=== PATIENT | female | born 1930 | race Caucasian/White ===

== ENCOUNTER 2019-07-28 22:16 | Inpatient (IN) | payer MEDICARE, OTHER ==
[~2019-07-28] VITALS: Ht 152.4 cm; Wt 58.7 kg
[~2019-07-28 22:16] MED LIST: CARV6.2511 PO; LACT1CAP19 PO; LEVO250T7 PO; MELO7.5T29 PO; OMEP20TA63 PO; OXYB5TAB2 PO; PARO10TA3 PO; RANI150C PO; TRAM50TA PO
--- NOTE | 2019-07-28 22:49 | PHYS DOC ---
Past Medical History Past Medical History: Hypertension Alcohol Use: None Drug Use: None Adult General Chief Complaint Chief Complaint: MECHANICAL FALL HPI HPI 88-year-old female presents to the emergency department with complaints of fall. EMS was called for altered mental status associated with the fall. However upon further discussion patient has had fall a few days ago with bruising to left side of her head. Patient is alert and oriented 3. She follows commands appropriately. NIH of 3 however non-unilateral deficit. See stroke scale. Patient complains of nausea. Unknown blood thinning medications. Patient's poor historian, no present family at this time. She denies any chest pain, shortness breath, visual changes. Patient does not live with family she goes back and forth between friends. They state she has had intermittent falls most recently tonight. They also state her speech is intermittently slurred. No exact onset of symptoms appreciated after talking with family. Review of Systems Review of Systems Constitutional: Denies fever or chills [] Eyes: Denies change in visual acuity, redness, or eye pain [] HENT: Denies nasal congestion or sore throat [] Respiratory: Denies cough or shortness of breath [] Cardiovascular: No additional information not addressed in HPI [] GI: Denies abdominal pain, nausea, vomiting, bloody stools or diarrhea [] : Denies dysuria or hematuria [] Musculoskeletal: Denies back pain or joint pain [] Integument: Denies rash or skin lesions [] Neurologic: Denies headache, focal weakness or sensory changes [] Endocrine: Denies polyuria or polydipsia [] All other systems were reviewed and found to be within normal limits, except as documented in this note. Current Medications Current Medications Current Medications Medications (Trade) Dose Ordered Sig/[facility] Start Time Stop Time Status Last Admin Dose Admin Ketorolac Tromethamine (Toradol 30mg Vial) 30 mg 1X ONCE 07/28/19 23:30 07/28/19 23:31 DC 07/28/19 23:38 30 MG Allergies Allergies Allergies Coded Allergies Type Severity Reaction Last Updated Verified No Known Drug Allergies 08/27/18 No Physical Exam Physical Exam Constitutional: Well developed, well nourished, no acute distress, non-toxic appearance. [] HENT: Normocephalic, left scalp with hematoma, bilateral external ears normal, oropharynx moist, no oral exudates, nose normal. [] Eyes: left pupil with lens replacement pupil different than right however both reactive, EOMI, conjunctiva normal, no discharge. [] Neck: Normal range of motion, no tenderness, supple, no stridor. [] Cardiovascular:Heart rate regular rhythm, no murmur [] Lungs & Thorax: Bilateral breath sounds clear to auscultation [] Abdomen: Bowel sounds normal, soft, no tenderness, no masses, no pulsatile masses. [] Skin: Warm, dry, no erythema, no rash. multiple areas of bruising appreciated [] Back: No tenderness, no CVA tenderness. [] Extremities: No tenderness, no edema. [] Neurologic: Alert and oriented X 3, no focal deficits noted. [] Psychologic: Affect normal, judgement normal, mood normal. [] Current Patient Data Vital Signs Vital Signs Date Time Temp Pulse Resp B/P (MAP) Pulse Ox O2 Delivery O2 Flow Rate FiO2 07/28/19 22:16 97.6 71 14 193/80 (117) 97 Room Air 97.6 Lab Values Laboratory Tests Test 07/28/19 22:22 07/28/19 22:40 07/28/19 23:20 Glucose (Fingerstick) 121 mg/dL (70-99) H White Blood Count 9.2 x10^3/uL (4.0-11.0) Red Blood Count 4.41 x10^6/uL (3.50-5.40) Hemoglobin 13.8 g/dL (12.0-15.5) Hematocrit 40.8 % (36.0-47.0) Mean Corpuscular Volume 92 fL (79-100) Mean Corpuscular Hemoglobin 31 pg (25-35) Mean Corpuscular Hemoglobin Concent 34 g/dL (31-37) Red Cell Distribution Width 13.4 % (11.5-14.5) Platelet Count 162 x10^3/uL (140-400) Neutrophils (%) (Auto) 57 % (31-73) Lymphocytes (%) (Auto) 30 % (24-48) Monocytes (%) (Auto) 11 % (0-9) H Eosinophils (%) (Auto) 1 % (0-3) Basophils (%) (Auto) 1 % (0-3) Neutrophils # (Auto) 5.2 x10^3/uL (1.8-7.7) Lymphocytes # (Auto) 2.8 x10^3/uL (1.0-4.8) Monocytes # (Auto) 1.0 x10^3/uL (0.0-1.1) Eosinophils # (Auto) 0.1 x10^3/uL (0.0-0.7) Basophils # (Auto) 0.1 x10^3/uL (0.0-0.2) Prothrombin Time 13.0 SEC (11.7-14.0) Prothrombin Time INR 1.0 (0.8-1.1) Sodium Level 144 mmol/L (136-145) Potassium Level 4.0 mmol/L (3.5-5.1) Chloride Level 108 mmol/L (98-107) H Carbon Dioxide Level 25 mmol/L (21-32) Anion Gap 11 (6-14) Blood Urea Nitrogen 30 mg/dL (7-20) H Creatinine 1.3 mg/dL (0.6-1.0) H Estimated GFR (Cockcroft-Gault) 38.8 BUN/Creatinine Ratio 23 (6-20) H Glucose Level 127 mg/dL (70-99) H Calcium Level 9.3 mg/dL (8.5-10.1) Total Bilirubin 0.5 mg/dL (0.2-1.0) Aspartate Amino Transferase (AST) 32 U/L (15-37) Alanine Aminotransferase (ALT) 37 U/L (14-59) Alkaline Phosphatase 75 U/L (46-116) Total Protein 7.7 g/dL (6.4-8.2) Albumin 3.8 g/dL (3.4-5.0) Albumin/Globulin Ratio 1.0 (1.0-1.7) Urine Collection Type U cath Urine Color Yellow Urine Clarity Clear Urine pH 5.0 Urine Specific [place] 1.020 Urine Protein Negative mg/dL (NEG-TRACE) Urine Glucose (UA) Negative mg/dL (NEG) Urine Ketones (Stick) Negative mg/dL (NEG) Urine Blood Moderate (NEG) Urine Nitrite Positive (NEG) Urine Bilirubin Negative (NEG) Urine Urobilinogen Dipstick 0.2 mg/dL (0.2 mg/dL) Urine Leukocyte Esterase Trace (NEG) Urine RBC Rare /HPF (0-2) Urine WBC Occ /HPF (0-4) Urine Squamous Epithelial Cells Few /LPF Urine Bacteria Many /HPF (0-FEW) Urine Hyaline Casts Occasional /HPF Laboratory Tests 07/28/19 22:40 Laboratory Tests 07/28/19 22:40 EKG EKG EKG reviewed, normal sinus rhythm, heart rate 70, normal axis. No evidence of acute ST elevation DE. Interpretation time 2234[] Radiology/Procedures Radiology/Procedures [facility] [address] [place] [address] IMAGING REPORT Signed PATIENT: STAN RAPP ACCOUNT: [id number] : 1930 LOCATION: ER AGE: 88 SEX: F EXAM STATUS: REG ER ORD. PHYSICIAN: MOISES SIMMONS MD REASON: NIH 3, inconsistent history and no family available. PROCEDURE: CT HEAD WO CONTRAST EXAM: CT HEAD WITHOUT CONTRAST. HISTORY: Altered mental status. TECHNIQUE: Computed tomography of the head was performed without intravenous contrast. One or more of the following individualized dose reduction techniques were utilized for this examination: 1. Automated exposure control. 2. Adjustment of the mA and/or kV according to patient size. 3. Use of iterative reconstruction technique. COMPARISON: None. FINDINGS: There is no intracranial hemorrhage. There is right hemispheric encephalomalacia consistent with a chronic medial collateral ligament territory infarct. Additional bilateral chronic occipital infarcts are also noted. There is a moderate chronic microangiopathic white matter change elsewhere. Prominence of the lateral ventricles and hemispheric sulci indicates moderate atrophy. The visualized paranasal sinuses appear clear. There are changes of bilateral cataract surgery. The temporal bones are unremarkable. The calvarium reveals no suspicious lesions. IMPRESSION: 1. No acute intracranial findings. 2. 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 3. 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 Electronically signed by: Jennie Foster MD (07/28/2019 10:57 PM) [facility] DICTATED and SIGNED BY: SARAH FOSTER MD DATE: 07/28/19 2259 [] Course & Med Decision Making Course & Med Decision Making Pertinent Labs and Imaging studies reviewed. (See chart for details) []88-year-old female presents to the emergency department with complaints of fall. EMS was called for altered mental status associated with the fall. However upon further discussion patient has had fall a few days ago with bruising to left side of her head. Patient is alert and oriented 3. She follows commands appropriately. NIH of 3 however non-unilateral deficit. See stroke scale. Patient complains of nausea. Unknown blood thinning medications. Patient's poor historian, no present family at this time. She denies any chest pain, shortness breath, visual changes. Patient does not live with family she goes back and forth between friends. They state she has had intermittent falls most recently tonight. They also state her speech is intermittently slurred. No exact onset of symptoms appreciated after talking with family Labs/Imaging reviewed No evidence of acute cva however bilateral old CVA present Admit with further neuro eval and probable MRI. PT/OT eval and treat Neuro consult Admit to hospitalist Comfort Disclaimer Comfort Disclaimer This electronic medical record was generated, in whole or in part, using a voice recognition dictation system. NIHSS Stroke Scale NIH Stroke Scale: NIH Stroke Scale Response (Comments) Value Level of Consciousness: 0 Alert/Responsive 0 LOC Questions: 0 Answers both correctly 0 LOC Commands: 0 Performs both tasks 0 Best Gaze: 0 Normal 0 Visual: 0 No visual loss 0 Facial Palsy: 0 Normal, symmetrical 0 Motor - Left Arm 0 No drift 0 Motor - Right Arm 1 Drifts but can hold 1 Motor - Left Leg 0 No drift 0 Motor: Right Leg 0 No drift 0 Limb Ataxia: 2 Two limbs 2 Sensory: 0 No loss 0 Best Language: 0 Normal 0 Dysathria: 0 Normal 0 Extinction and Inattention: 0 Normal 0 Total 3 Departure Departure Impression: Primary Impression: Fall Additional Impressions: Altered mental status UTI (urinary tract infection) Old cerebrovascular accident (CVA) without late effect Disposition: ADMITTED INPATIENT Admitting Physician: TRUDY Condition: STABLE Referrals: HAYDER SUTTON APRN (PCP) Problem Qualifiers Primary Impression: Fall Encounter type: initial encounter Qualified Codes: W19.XXXA - Unspecified fall, initial encounter Additional Impressions: Altered mental status Altered mental status type: unspecified Qualified Codes: R41.82 - Altered mental status, unspecified MOISES SIMMONS MD Jul 28, 2019 22:49
[2019-07-28 22:50] LABS: BASO # 0.1 x10^3/uL (0.0-0.2); BASO % 1 % (0-3); EOS # 0.1 x10^3/uL (0.0-0.7); EOS % 1 % (0-3); HEMATOCRIT 40.8 % (36.0-47.0); HEMOGLOBIN 13.8 g/dL (12.0-15.5); LYMPH # 2.8 x10^3/uL (1.0-4.8); LYMPH % 30 % (24-48); MEAN CORPUSCULAR HEMOGLOBIN 31 pg (25-35); MEAN CORPUSCULAR HGB CONC 34 g/dL (31-37); MEAN CORPUSCULAR VOLUME 92 fL (79-100); MONO % 11 % (0-9); NEUT # 5.2 x10^3/uL (1.8-7.7); NEUT % 57 % (31-73); PLATELET COUNT 162 x10^3/uL (140-400); RED BLOOD COUNT 4.41 x10^6/uL (3.50-5.40); RED CELL DISTRIBUTION WIDTH 13.4 % (11.5-14.5); WHITE BLOOD COUNT 9.2 x10^3/uL (4.0-11.0)
[2019-07-28 23:00] LABS: CALCIUM 9.3 mg/dL (8.5-10.1); CREATININE 1.3 mg/dL (0.6-1.0); GFR 38.8
--- NOTE | 2019-07-28 23:00 | RAD ---
EXAM: CT HEAD WITHOUT CONTRAST. HISTORY: Altered mental status. TECHNIQUE: Computed tomography of the head was performed without intravenous contrast. One or more of the following individualized dose reduction techniques were utilized for this examination: 1. Automated exposure control. 2. Adjustment of the mA and/or kV according to patient size. 3. Use of iterative reconstruction technique. COMPARISON: None. FINDINGS: There is no intracranial hemorrhage. There is right hemispheric encephalomalacia consistent with a chronic medial collateral ligament territory infarct. Additional bilateral chronic occipital infarcts are also noted. There is a moderate chronic microangiopathic white matter change elsewhere. Prominence of the lateral ventricles and hemispheric sulci indicates moderate atrophy. The visualized paranasal sinuses appear clear. There are changes of bilateral cataract surgery. The temporal bones are unremarkable. The calvarium reveals no suspicious lesions. IMPRESSION: 1. No acute intracranial findings. 2. 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 3. 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 Electronically signed by: Jennie Foster MD (07/28/2019 10:57 PM) [facility]
[2019-07-28 23:06] LABS: ALBUMIN 3.8 g/dL (3.4-5.0); TOTAL BILIRUBIN 0.5 mg/dL (0.2-1.0); TOTAL PROTEIN 7.7 g/dL (6.4-8.2)
[2019-07-28] MEDS ORDERED: KETOROLAC 30 MG/ML VIAL. IV ONE (23:30)
[2019-07-28 23:32] LABS: BILIRUBIN,URINE NEGATIVE (NEG); CLARITY,URINE CLEAR; COLOR,URINE YELLOW; NITRITE,URINE POSITIVE (NEG); PROTEIN,URINE NEGATIVE (NEG-TRACE); UROBILINOGEN,URINE 0.2 mg/dL (0.2 mg/dL)
[2019-07-28 23:39] LABS: BACTERIA,URINE MANY /HPF (0-FEW); HYALINE CASTS, URINE OCCASIONAL /HPF; RBC,URINE RARE /HPF (0-2); SQUAMOUS EPITHELIAL CELL,UR FEW /LPF; WBC,URINE OCC /HPF (0-4)
[2019-07-28] MEDS ORDERED: cefTRIAXone IV Push 1 GM VIAL. IVP ONE (23:45)
[2019-07-29] VITALS (27 sets, daily range): BP systolic 116–179; BP diastolic 45–89
[2019-07-29] MEDS ORDERED: ACETAMINOPHEN 325 MG TABLET. PO PRN ×2 (00:45)
[2019-07-29] MEDS ORDERED: ALTEPLASE 0 MG IV ONE (00:45)
[2019-07-29] MEDS ORDERED: LABETALOL 20 MG/4 ML DISP.SYRIN. IVP PRN ×2 (00:45)
[2019-07-29] MEDS ORDERED: ONDANSETRON PF 4 MG/2 ML VIAL. IV PRN ×2 (00:45)
[2019-07-29] MEDS ORDERED: ALTEPLASE 0 MG IV SCH (00:45)
[2019-07-29] MEDS ORDERED: IV NORMAL SALINE 50ML 50 ML IV ONE ×2 (00:45→01:00)
[2019-07-29] MEDS ORDERED: ALTEPLASE 5.7 MG IV ONE (01:00)
[2019-07-29] MEDS ORDERED: ALTEPLASE IV SCH (01:00)
[2019-07-29] MEDS ORDERED: CONTRAST GIVEN. MC PRN (01:15)
[2019-07-29] MEDS ORDERED: IOHEXOL 300 MG/ML 100ML VIAL. IV ONE (01:15)
--- NOTE | 2019-07-29 02:44 | RAD ---
CTA head with and without and CTA neck with contrast History: Change in mental status Technique: Axial images were obtained of the head without contrast and axial helical images were obtained of the head and neck after the intravenous administration of 75 mL of Isovue-370 IV contrast. Multiplanar reconstruction was performed on an independent work station including MIP imaging and 3D angiographic imaging. Comparison: none CTA head with and without contrast. Findings: Brain: The rodriguez and white matter appears symmetrical. There is no mass effect, extra-axial fluid collections or hydrocephalus. There is no gross bleed. Distal carotid arteries: normal caliber Vertebral basilar system normal Major cerebral arteries: The left posterior cerebral artery is small. There is thrombus in left internal carotid artery and there is some retrograde filling of the distal left internal carotid artery through the [place] of [place]. Impression: 1. Small left posterior cerebral artery. 2. Occlusion of the left internal coronary. end impression CTA neck with contrast: Findings: Aortic arch and origin of great vessels: normal There is high-grade stenosis of the distal right common carotid artery with thrombus and greater than 90 percent stenosis the origin of the right internal carotid artery. There is occlusion of the left internal carotid artery and there is hard plaque in the distal left common carotid artery. Vertebral basilar system normal Impression: 1. 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 2. Occlusion of the left internal carotid artery. PQRS Compliance Statement - Stenosis calculations for CT, MR and conventional angiography are based upon measurement of the distal ICA diameter in accordance with the NASCET methodology. Stenosis calculations for carotid ultrasound studies are derived from validated velocity criteria which are known to correlate with the NASCET methodology. PQRS Compliance Statement: One or more of the following individualized dose reduction techniques were utilized for this examination: 1. Automated exposure control 2. Adjustment of the mA and/or kV according to patient size 3. Use of iterative reconstruction technique Electronically signed by: Hua Gates III, MD (07/29/2019 2:41 AM) [id number]
--- NOTE | 2019-07-29 08:49 | PDOC1 ---
History and Physical Date of Admission Date of Admission DATE: 07/29/19 TIME: 08:33 Identification/Chief Complaint Chief Complaint Altered mental status Source Source: Caregiver, Chart review, Patient History of Present Illness History of Present Illness Ms Kelly is an 88yo F w/ PMHx Hypertension, GERD who p/w a fall at home. EMS was called for altered mental status associated with the fall. However upon further discussion patient has had fall a few days ago with bruising to left side of her head. Patient was initially alert and oriented 3. She follows commands appropriately. NIH of 3 however non-unilateral deficit. See stroke scale. Patient complains of nausea. Unknown blood thinning medications. Patient's poor historian, no present family at this time. She denies any chest pain, shortness breath, visual changes. Patient does not live with family she goes back and forth between friends. They state she has had intermittent falls most recently tonight. They also state her speech is intermittently slurred. No exact onset of symptoms appreciated after talking with family. Around midnight patient had a acute change with NIH of 10. Patient had difficulty answering questions and would only obey one command. She had concern for facial paralysis, drift of her right upper extremity, mild sensation deficit appreciated to the right as well as moderate aphasia and slurring of words. She has sons who are not involved with her care and she has no power of sleeve machine tender. She underwent tPA administration and was admitted to ICU for further care per recommendations of stroke center. Past Medical History Cardiovascular: HTN Pulmonary: No pertinent hx CENTRAL NERVOUS SYSTEM: CVA GI: GERD Heme/Onc: No pertinent hx Hepatobiliary: No pertinent hx Musculoskeletal: Osteoarthritis Rheumatologic: No pertinent hx Infectious disease: No pertinent hx ENT: No pertinent hx Renal/: No pertinent hx, UTI Endocrine: No pertinent hx Dermatology: No pertinent hx Past Surgical History Past Surgical History: Other Family History Family History: Heart Disease Social History Smoke: No ALCOHOL: none Drugs: None Current Problem List Problem List Problems Medical Problems: (1) Altered mental status Status: Acute (2) Fall Status: Acute (3) Old cerebrovascular accident (CVA) without late effect Status: Acute (4) UTI (urinary tract infection) Status: Acute Current Medications Current Medications Current Medications Ketorolac Tromethamine (Toradol 30mg Vial) 30 mg 1X ONCE IV Last administered on 07/28/19at 23:38; Start 07/28/19 at 23:30; Stop 07/28/19 at 23:31; Status DC Ceftriaxone Sodium (Rocephin) 1 gm 1X ONCE IVP Last administered on 07/29/19at 00:53; Start 07/28/19 at 23:45; Stop 07/28/19 at 23:46; Status DC Ondansetron HCl (Zofran) 4 mg PRN Q8HRS PRN IV NAUSEA/VOMITING; Start 07/29/19 at 00:00; Stop 07/29/19 at 23:59 Acetaminophen (Tylenol) 650 mg PRN Q4HRS PRN PO FEVER; Start 07/29/19 at 00:00; Stop 07/29/19 at 23:59 Alteplase, Recombinant 0 ml @ 0 mls/hr 1X ONCE IV ; Start 07/29/19 at 00:45; Stop 07/29/19 at 00:46; Status UNV Alteplase, Recombinant 0 ml @ 0 mls/hr Q1H IV ; Start 07/29/19 at 00:45; Stop 07/29/19 at 00:46; Status UNV Sodium Chloride 50 ml @ 0 mls/hr 1X ONCE IV ; Start 07/29/19 at 00:45; Stop 07/29/19 at 00:46; Status UNV Labetalol HCl (Normodyne Iv Push) 10 mg PRN Q10MIN PRN IVP HYPERTENSION; Start 07/29/19 at 00:45; Status UNV Nicardipine HCl 50 mg/Sodium Chloride 250 ml @ 25 mls/hr CONT PRN PRN IV HYPERTENSION; Start 07/29/19 at 00:45; Status UNV Labetalol HCl (Normodyne Iv Push) 10 mg PRN Q10MIN PRN IVP HYPERTENSION; Start 07/29/19 at 00:45 Nicardipine HCl 50 mg/Sodium Chloride 250 ml @ 25 mls/hr CONT PRN PRN IV HYPERTENSION; Start 07/29/19 at 00:45 Acetaminophen (Tylenol) 650 mg PRN Q6HRS PRN PO MILD PAIN / TEMP; Start 07/29/19 at 00:45 Acetaminophen (Tylenol Supp) 325 mg PRN Q6HRS PRN DE MILD PAIN / TEMP; Start 07/29/19 at 00:45 Ondansetron HCl (Zofran) 4 mg PRN Q6HRS PRN IV NAUSEA/VOMITING; Start 07/29/19 at 00:45 Alteplase, Recombinant 5.7 ml @ 342 mls/hr 1X ONCE IV Last administered on 07/29/19at 01:00; Start 07/29/19 at 01:00; Stop 07/29/19 at 01:01; Status DC Alteplase, Recombinant 51 ml @ 51 mls/hr Q1H IV Last administered on 07/29/19at 01:08; Start 07/29/19 at 01:00; Stop 07/29/19 at 01:59; Status DC Sodium Chloride 50 ml @ 200 mls/hr 1X ONCE IV Last administered on 07/29/19at 01:04; Start 07/29/19 at 01:00; Stop 07/29/19 at 01:14; Status DC Iohexol (Omnipaque 300 Mg/ml) 50 ml 1X ONCE IV Last administered on 07/29/19at 01:34; Start 07/29/19 at 01:15; Stop 07/29/19 at 01:16; Status DC Info (CONTRAST GIVEN -- Rx MONITORING) 1 each PRN DAILY PRN MC SEE COMMENTS; Start 07/29/19 at 01:15; Stop 07/31/19 at 01:14 Active Scripts Active Culturelle (Lactobacillus Rhamnosus Gg) 1 Each Cap.sprink 1 Cap PO BID 14 Days Levofloxacin 250 Mg Tablet 250 Mg PO DAILY06 7 Days Reported Tramadol Hcl 50 Mg Tablet 50 Mg PO Q6HRS PRN Ranitidine Hcl 150 Mg Capsule 150 Mg PO BID Paroxetine Hcl 10 Mg Tablet 10 Mg PO DAILY Oxybutynin Chloride Er (Oxybutynin Chloride) 5 Mg Tab.er.24 1 Tab PO DAILY Prilosec Otc (Omeprazole Magnesium) 20 Mg Tablet.dr 2 Tab PO DAILY Meloxicam 7.5 Mg Tablet 1 Tab PO DAILY Carvedilol (Carvedilol) 6.25 Mg Tablet 6.25 Mg PO BIDWMEALS Allergies Allergies: Coded Allergies: No Known Drug Allergies (Unverified , 08/27/18) ROS General: YES: Fatigue, Malaise; No: Chills, Night Sweats, Appetite, Other PSYCHOLOGICAL ROS: No: Anxiety, Behavioral Disorder, Concentration difficultie, Decreased libido, Depression, Disorientation, Hallucinations, Hostility, Irrita blity, Memory difficulties, Mood Swings, Obsessive thoughts, Physical abuse, Sexual abuse, Sleep disturbances, Suicidal ideation, Other Eyes: No Blurry vision, No Decreased vision, No Double vision, No Dry eyes, No Excessive tearing, No Eye Pain, No Itchy Eyes, No Loss of vision, No Photophobia, No Scotomata, No Uses contacts, No Uses glasses, No Other HEENT: No: Heacaches, Visual Changes, Hearing change, Nasal congestion, Nasal discharge, Oral lesions, Sinus pain, Sore Throat, Epistaxis, Sneezing, Snoring, Tinnitus, Vertigo, Vocal changes, Other ALLERGY AND IMMUNOLOGY: No: Hives, Insect Bite Sensitivity, Itchy/Watery Eyes, Nasal Congestion, Post Nasal Drip, Seasonal Allergies, Other Hematological and Lymphatic: No: Bleeding Problems, Blood Clots, Blood Transfusions, Brusing, Night Sweats, Pallor, Swollen Lymph Nodes, Other ENDOCRINE: No: Breast Changes, Galactorrhea, Hair Pattern Changes, Hot Flashes, Malaise/lethargy, Mood Swings, Palpitations, Polydipsia/polyuria, Skin Changes, Temperature Intolerance, Unexpected Weight Changes, Other Breast: No New/Changing Breast Lumps, No Nipple changes, No Nipple discharge, No Other Respiratory: No: Cough, Hemoptysis, Orthopnea, Pleuritic Pain, Shortness of breath, SOB with excertion, Sputum Changes, Stridor, Tachypnea, Wheezing, Other Cardiovascular: No Chest Pain, No Palpitations, No Orthopnea, No Paroxysmal Noc. Dyspnea, No Edema, No Lt Headedness, No Other Gastrointestinal: No Nausea, No Vomiting, No Abdominal Pain, No Diarrhea, No Constipation, No Melena, No Hematochezia, No Other Genitourinary: No Dysuria, No Frequency, No Incontinence, No Hematuria, No Retention, No Discharge, No Urgency, No Pain, No Flank Pain, No Other, No , No , No , No , No , No , No Musculoskeletal: No Gait Disturbance, No Joint Pain, No Joint Stiffness, No Joint Swelling, No Muscle Pain, No Muscular Weakness, No Pain In:, No Swelling In:, No Other Neurological: No Behavorial Changes, No Bowel/Bladder ControlChng, No Confusion, No Dizziness, No Gait Disturbance, No Headaches, No Impaired Coord/balance, No Memory Loss, No Numbness/Tingling, No Seizures, No Speech Problems, No Tremors, No Visual Changes, No Weakness, No Other Skin: No Dry Skin, No Eczema, No Hair Changes, No Lumps, No Mole Changes, No Mottling, No Nail Changes, No Pruritus, No Rash, No Skin Lesion Changes, No Other, No Acne Physical Exam General: Alert, Cooperative, No acute distress HEENT: Atraumatic, PERRLA, EOMI, Mucous membr. moist/pink Lungs: Clear to auscultation, Normal air movement Heart: S1S2, RRR, no thrills, no rubs Abdomen: Normal bowel sounds, Soft, No tenderness, No hepatosplenomegaly, No masses Rectal Exam: not examined Extremities: No clubbing, No cyanosis, No edema, Normal pulses, No tenderness/swelling Skin: No rashes, No breakdown, No significant lesion Neuro: Sensation intact, Cranial nerves 3-12 NL, Other (Right pronator drif) Psych/Mental Status: Mood NL Vitals Vitals Vital Signs Date Time Temp Pulse Resp B/P (MAP) Pulse Ox O2 Delivery O2 Flow Rate FiO2 07/29/19 07:00 73 22 133/45 (74) 94 Room Air 07/29/19 04:45 97.7 97.7 Labs Labs Laboratory Tests Test 07/28/19 22:22 07/28/19 22:40 07/28/19 23:20 Glucose (Fingerstick) 121 mg/dL (70-99) White Blood Count 9.2 x10^3/uL (4.0-11.0) Red Blood Count 4.41 x10^6/uL (3.50-5.40) Hemoglobin 13.8 g/dL (12.0-15.5) Hematocrit 40.8 % (36.0-47.0) Mean Corpuscular Volume 92 fL (79-100) Mean Corpuscular Hemoglobin 31 pg (25-35) Mean Corpuscular Hemoglobin Concent 34 g/dL (31-37) Red Cell Distribution Width 13.4 % (11.5-14.5) Platelet Count 162 x10^3/uL (140-400) Neutrophils (%) (Auto) 57 % (31-73) Lymphocytes (%) (Auto) 30 % (24-48) Monocytes (%) (Auto) 11 % (0-9) Eosinophils (%) (Auto) 1 % (0-3) Basophils (%) (Auto) 1 % (0-3) Neutrophils # (Auto) 5.2 x10^3/uL (1.8-7.7) Lymphocytes # (Auto) 2.8 x10^3/uL (1.0-4.8) Monocytes # (Auto) 1.0 x10^3/uL (0.0-1.1) Eosinophils # (Auto) 0.1 x10^3/uL (0.0-0.7) Basophils # (Auto) 0.1 x10^3/uL (0.0-0.2) Prothrombin Time 13.0 SEC (11.7-14.0) Prothromb Time International Ratio 1.0 (0.8-1.1) Sodium Level 144 mmol/L (136-145) Potassium Level 4.0 mmol/L (3.5-5.1) Chloride Level 108 mmol/L (98-107) Carbon Dioxide Level 25 mmol/L (21-32) Anion Gap 11 (6-14) Blood Urea Nitrogen 30 mg/dL (7-20) Creatinine 1.3 mg/dL (0.6-1.0) Estimated GFR (Cockcroft-Gault) 38.8 BUN/Creatinine Ratio 23 (6-20) Glucose Level 127 mg/dL (70-99) Calcium Level 9.3 mg/dL (8.5-10.1) Total Bilirubin 0.5 mg/dL (0.2-1.0) Aspartate Amino Transf (AST/SGOT) 32 U/L (15-37) Alanine Aminotransferase (ALT/SGPT) 37 U/L (14-59) Alkaline Phosphatase 75 U/L (46-116) Total Protein 7.7 g/dL (6.4-8.2) Albumin 3.8 g/dL (3.4-5.0) Albumin/Globulin Ratio 1.0 (1.0-1.7) Urine Collection Type U cath Urine Color Yellow Urine Clarity Clear Urine pH 5.0 Urine Specific [place] 1.020 Urine Protein Negative mg/dL (NEG-TRACE) Urine Glucose (UA) Negative mg/dL (NEG) Urine Ketones (Stick) Negative mg/dL (NEG) Urine Blood Moderate (NEG) Urine Nitrite Positive (NEG) Urine Bilirubin Negative (NEG) Urine Urobilinogen Dipstick 0.2 mg/dL (0.2 mg/dL) Urine Leukocyte Esterase Trace (NEG) Urine RBC Rare /HPF (0-2) Urine WBC Occ /HPF (0-4) Urine Squamous Epithelial Cells Few /LPF Urine Bacteria Many /HPF (0-FEW) Urine Hyaline Casts Occasional /HPF Laboratory Tests Test 07/28/19 22:22 07/28/19 22:40 07/28/19 23:20 Glucose (Fingerstick) 121 mg/dL (70-99) White Blood Count 9.2 x10^3/uL (4.0-11.0) Red Blood Count 4.41 x10^6/uL (3.50-5.40) Hemoglobin 13.8 g/dL (12.0-15.5) Hematocrit 40.8 % (36.0-47.0) Mean Corpuscular Volume 92 fL (79-100) Mean Corpuscular Hemoglobin 31 pg (25-35) Mean Corpuscular Hemoglobin Concent 34 g/dL (31-37) Red Cell Distribution Width 13.4 % (11.5-14.5) Platelet Count 162 x10^3/uL (140-400) Neutrophils (%) (Auto) 57 % (31-73) Lymphocytes (%) (Auto) 30 % (24-48) Monocytes (%) (Auto) 11 % (0-9) Eosinophils (%) (Auto) 1 % (0-3) Basophils (%) (Auto) 1 % (0-3) Neutrophils # (Auto) 5.2 x10^3/uL (1.8-7.7) Lymphocytes # (Auto) 2.8 x10^3/uL (1.0-4.8) Monocytes # (Auto) 1.0 x10^3/uL (0.0-1.1) Eosinophils # (Auto) 0.1 x10^3/uL (0.0-0.7) Basophils # (Auto) 0.1 x10^3/uL (0.0-0.2) Prothrombin Time 13.0 SEC (11.7-14.0) Prothromb Time International Ratio 1.0 (0.8-1.1) Sodium Level 144 mmol/L (136-145) Potassium Level 4.0 mmol/L (3.5-5.1) Chloride Level 108 mmol/L (98-107) Carbon Dioxide Level 25 mmol/L (21-32) Anion Gap 11 (6-14) Blood Urea Nitrogen 30 mg/dL (7-20) Creatinine 1.3 mg/dL (0.6-1.0) Estimated GFR (Cockcroft-Gault) 38.8 BUN/Creatinine Ratio 23 (6-20) Glucose Level 127 mg/dL (70-99) Calcium Level 9.3 mg/dL (8.5-10.1) Total Bilirubin 0.5 mg/dL (0.2-1.0) Aspartate Amino Transf (AST/SGOT) 32 U/L (15-37) Alanine Aminotransferase (ALT/SGPT) 37 U/L (14-59) Alkaline Phosphatase 75 U/L (46-116) Total Protein 7.7 g/dL (6.4-8.2) Albumin 3.8 g/dL (3.4-5.0) Albumin/Globulin Ratio 1.0 (1.0-1.7) Urine Collection Type U cath Urine Color Yellow Urine Clarity Clear Urine pH 5.0 Urine Specific [place] 1.020 Urine Protein Negative mg/dL (NEG-TRACE) Urine Glucose (UA) Negative mg/dL (NEG) Urine Ketones (Stick) Negative mg/dL (NEG) Urine Blood Moderate (NEG) Urine Nitrite Positive (NEG) Urine Bilirubin Negative (NEG) Urine Urobilinogen Dipstick 0.2 mg/dL (0.2 mg/dL) Urine Leukocyte Esterase Trace (NEG) Urine RBC Rare /HPF (0-2) Urine WBC Occ /HPF (0-4) Urine Squamous Epithelial Cells Few /LPF Urine Bacteria Many /HPF (0-FEW) Urine Hyaline Casts Occasional /HPF Images Images CT head 222907/28/19 - There is no intracranial hemorrhage. There is right hemispheric encephalomalacia consistent with a chronic medial collateral ligament territory infarct. Additional bilateral chronic occipital infarcts are also noted. There is a moderate chronic microangiopathic white matter change elsewhere. Prominence of the lateral ventricles and hemispheric sulci indicates moderate atrophy. The visualized paranasal sinuses appear clear. There are changes of bilateral cataract surgery. The temporal bones are unremarkable. The calvarium reveals no suspicious lesions. IMPRESSION: 1. No acute intracranial findings. 2. 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 3. 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 CTA head with and without contrast 0034 07/29/19 Brain: The rodriguez and white matter appears symmetrical. There is no mass effect, extra-axial fluid collections or hydrocephalus. There is no gross bleed. Distal carotid arteries: normal caliber Vertebral basilar system normal Major cerebral arteries: The left posterior cerebral artery is small. There is thrombus in left internal carotid artery and there is some retrograde filling of the distal left internal carotid artery through the [place]. Impression: 1. Small left posterior cerebral artery. 2. Occlusion of the left internal coronary. CTA neck with contrast: Aortic arch and origin of great vessels: normal There is high-grade stenosis of the distal right common carotid artery with thrombus and greater than 90 percent stenosis the origin of the right internal carotid artery. There is occlusion of the left internal carotid artery and there is hard plaque in the distal left common carotid artery. Vertebral basilar system normal Impression: 1. 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 2. Occlusion of the left internal carotid artery. VTE Prophylaxis Ordered VTE Prophylaxis Devices: No VTE Pharmacological Prophylaxi: No Assessment/Plan Assessment/Plan A/P: Acute CVA - s/p tPA, in ICU, monitored. frequent neuro checks, hold blood thinners today. tight BP control. Test for thyroid disease, lipids, A1C. Consult neurology and vascular surgery. PT/OT/[employer], will likely need placement for rehab Acute encephalopathy - likely 2/2 CVA syndrome + UTI. 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 Occlusion of the left internal carotid artery - vascular surgery consulted. No intervention indicated given severity of disease CLAY - likely vasomotor nephropathy from confused state, poor PO intake, will hydrate UTI - f/u culture for +nitrites and +LE, empiric rocephin x3 days FEN - NPO until [employer] eval PPX - tPA FULL CODE Dispo - ICU for acute CVA s/p tPA administration CC time 49 minutes JAYDEN ESCOBAR MD Jul 29, 2019 08:49
[2019-07-29] MEDS: PANTOPRAZOLE 40 MG TABLET.DR. PO SCH (09:00)
[2019-07-29] MEDS: CARVEDILOL 6.25 MG TABLET. PO SCH ×2 (09:00→17:00)
[2019-07-29] MEDS: PARoxetine 10 MG TABLET PO SCH (09:00)
[2019-07-29] MEDS: OXYBUTYNIN CHLORIDE 5 MG TABLET PO SCH (09:00)
--- NOTE | 2019-07-29 13:40 | PDOC2 ---
CONSULT Date of Consult Date of Consult DATE: 07/29/19 TIME: 13:32 History of Present Illness Reason for Visit: This is a very pleasant 88-year-old female who presented with an acute stroke and underwent stroke protocol with tPA administration. She had an initial stable exam and then worsening exam to a NIH score of 10. 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 The right internal carotid artery reconstitutes in the distal portion of the neck. She has large vertebral arteries with a left-sided dominant vertebral. She is made much improvement over the morning and is now able to move and answer questions. She did take a fall resulting in the left forehead hematoma which is stable. He is due to undergo MRI testing. Past Medical History Cardiovascular: HTN Pulmonary: No pertinent hx CENTRAL NERVOUS SYSTEM: CVA GI: GERD Heme/Onc: No pertinent hx Hepatobiliary: No pertinent hx Musculoskeletal: Osteoarthritis Rheumatologic: No pertinent hx Infectious disease: No pertinent hx ENT: No pertinent hx Renal/: No pertinent hx, UTI Endocrine: No pertinent hx Dermatology: No pertinent hx Past Surgical History Past Surgical History: Other Family History Family History: Heart Disease, Hypertension Social History No ALCOHOL: none Drugs: None Current Problem List Problem List Problems Medical Problems: (1) Altered mental status Status: Acute (2) Fall Status: Acute (3) Old cerebrovascular accident (CVA) without late effect Status: Acute (4) UTI (urinary tract infection) Status: Acute Current Medications Current Medications Current Medications Ketorolac Tromethamine (Toradol 30mg Vial) 30 mg 1X ONCE IV Last administered on 07/28/19at 23:38; Start 07/28/19 at 23:30; Stop 07/28/19 at 23:31; Status DC Ceftriaxone Sodium (Rocephin) 1 gm 1X ONCE IVP Last administered on 07/29/19at 00:53; Start 07/28/19 at 23:45; Stop 07/28/19 at 23:46; Status DC Ondansetron HCl (Zofran) 4 mg PRN Q8HRS PRN IV NAUSEA/VOMITING; Start 07/29/19 at 00:00; Stop 07/29/19 at 08:42; Status DC Acetaminophen (Tylenol) 650 mg PRN Q4HRS PRN PO FEVER; Start 07/29/19 at 00:00; Stop 07/29/19 at 08:42; Status DC Alteplase, Recombinant 0 ml @ 0 mls/hr 1X ONCE IV ; Start 07/29/19 at 00:45; Stop 07/29/19 at 00:46; Status UNV Alteplase, Recombinant 0 ml @ 0 mls/hr Q1H IV ; Start 07/29/19 at 00:45; Stop 07/29/19 at 00:46; Status UNV Sodium Chloride 50 ml @ 0 mls/hr 1X ONCE IV ; Start 07/29/19 at 00:45; Stop 07/29/19 at 00:46; Status UNV Labetalol HCl (Normodyne Iv Push) 10 mg PRN Q10MIN PRN IVP HYPERTENSION; Start 07/29/19 at 00:45; Status UNV Nicardipine HCl 50 mg/Sodium Chloride 250 ml @ 25 mls/hr CONT PRN PRN IV HYPERTENSION; Start 07/29/19 at 00:45; Status UNV Labetalol HCl (Normodyne Iv Push) 10 mg PRN Q10MIN PRN IVP HYPERTENSION; Start 07/29/19 at 00:45 Nicardipine HCl 50 mg/Sodium Chloride 250 ml @ 25 mls/hr CONT PRN PRN IV HYPERTENSION; Start 07/29/19 at 00:45 Acetaminophen (Tylenol) 650 mg PRN Q6HRS PRN PO MILD PAIN / TEMP; Start 07/29/19 at 00:45 Acetaminophen (Tylenol Supp) 325 mg PRN Q6HRS PRN DE MILD PAIN / TEMP; Start 07/29/19 at 00:45 Ondansetron HCl (Zofran) 4 mg PRN Q6HRS PRN IV NAUSEA/VOMITING; Start 07/29/19 at 00:45 Alteplase, Recombinant 5.7 ml @ 342 mls/hr 1X ONCE IV Last administered on at 01:00; Start 07/29/19 at 01:00; Stop 07/29/19 at 01:01; Status DC Alteplase, Recombinant 51 ml @ 51 mls/hr Q1H IV Last administered on 07/29/19at 01:08; Start 07/29/19 at 01:00; Stop 07/29/19 at 01:59; Status DC Sodium Chloride 50 ml @ 200 mls/hr 1X ONCE IV Last administered on 07/29/19at 01:04; Start 07/29/19 at 01:00; Stop 07/29/19 at 01:14; Status DC Iohexol (Omnipaque 300 Mg/ml) 50 ml 1X ONCE IV Last administered on 07/29/19at 01:34; Start 07/29/19 at 01:15; Stop 07/29/19 at 01:16; Status DC Info (CONTRAST GIVEN -- Rx MONITORING) 1 each PRN DAILY PRN MC SEE COMMENTS; Start 07/29/19 at 01:15; Stop 07/31/19 at 01:14 Carvedilol (Coreg) 6.25 mg BIDWMEALS PO ; Start 07/29/19 at 09:00 Paroxetine HCl (Paxil) 10 mg DAILY PO ; Start 07/29/19 at 09:00 Pantoprazole Sodium (Protonix) 40 mg DAILYAC PO ; Start 07/29/19 at 09:00 Oxybutynin Chloride (Ditropan) 5 mg DAILY PO ; Start 07/29/19 at 09:00 Ceftriaxone Sodium (Rocephin) 1 gm Q24H IVP ; Start 07/29/19 at 19:00; Stop 07/31/19 at 19:01 Active Scripts Active Culturelle (Lactobacillus Rhamnosus Gg) 1 Each Cap.sprink 1 Cap PO BID 14 Days Levofloxacin 250 Mg Tablet 250 Mg PO DAILY06 7 Days Reported Tramadol Hcl 50 Mg Tablet 50 Mg PO Q6HRS PRN Ranitidine Hcl 150 Mg Capsule 150 Mg PO BID Paroxetine Hcl 10 Mg Tablet 10 Mg PO DAILY Oxybutynin Chloride Er (Oxybutynin Chloride) 5 Mg Tab.er.24 1 Tab PO DAILY Prilosec Otc (Omeprazole Magnesium) 20 Mg Tablet.dr 2 Tab PO DAILY Meloxicam 7.5 Mg Tablet 1 Tab PO DAILY Carvedilol (Carvedilol) 6.25 Mg Tablet 6.25 Mg PO BIDWMEALS Allergies Allergies: Coded Allergies: No Known Drug Allergies (Unverified , 08/27/18) ROS Neurological: Yes Weakness Physical Exam General: Alert, Cooperative, No acute distress HEENT: Atraumatic, Mucous membr. 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, she does have a positive facial droop, she does have positive dysarthria) Vitals VITALS Vital Signs Date Time Temp Pulse Resp B/P (MAP) Pulse Ox O2 Delivery O2 Flow Rate FiO2 07/29/19 11:30 72 18 169/52 (91) 98 Room Air 07/29/19 08:00 98.5 98.5 Labs Labs Laboratory Tests Test 07/28/19 22:22 07/28/19 22:40 07/28/19 23:20 07/29/19 09:05 Glucose (Fingerstick) 121 mg/dL (70-99) White Blood Count 9.2 x10^3/uL (4.0-11.0) Red Blood Count 4.41 x10^6/uL (3.50-5.40) Hemoglobin 13.8 g/dL (12.0-15.5) Hematocrit 40.8 % (36.0-47.0) Mean Corpuscular Volume 92 fL (79-100) Mean Corpuscular Hemoglobin 31 pg (25-35) Mean Corpuscular Hemoglobin Concent 34 g/dL (31-37) Red Cell Distribution Width 13.4 % (11.5-14.5) Platelet Count 162 x10^3/uL (140-400) Neutrophils (%) (Auto) 57 % (31-73) Lymphocytes (%) (Auto) 30 % (24-48) Monocytes (%) (Auto) 11 % (0-9) Eosinophils (%) (Auto) 1 % (0-3) Basophils (%) (Auto) 1 % (0-3) Neutrophils # (Auto) 5.2 x10^3/uL (1.8-7.7) Lymphocytes # (Auto) 2.8 x10^3/uL (1.0-4.8) Monocytes # (Auto) 1.0 x10^3/uL (0.0-1.1) Eosinophils # (Auto) 0.1 x10^3/uL (0.0-0.7) Basophils # (Auto) 0.1 x10^3/uL (0.0-0.2) Prothrombin Time 13.0 SEC (11.7-14.0) Prothromb Time International Ratio 1.0 (0.8-1.1) Sodium Level 144 mmol/L (136-145) Potassium Level 4.0 mmol/L (3.5-5.1) Chloride Level 108 mmol/L (98-107) Carbon Dioxide Level 25 mmol/L (21-32) Anion Gap 11 (6-14) Blood Urea Nitrogen 30 mg/dL (7-20) Creatinine 1.3 mg/dL (0.6-1.0) Estimated GFR (Cockcroft-Gault) 38.8 BUN/Creatinine Ratio 23 (6-20) Glucose Level 127 mg/dL (70-99) Calcium Level 9.3 mg/dL (8.5-10.1) Total Bilirubin 0.5 mg/dL (0.2-1.0) Aspartate Amino Transf (AST/SGOT) 32 U/L (15-37) Alanine Aminotransferase (ALT/SGPT) 37 U/L (14-59) Alkaline Phosphatase 75 U/L (46-116) Total Protein 7.7 g/dL (6.4-8.2) Albumin 3.8 g/dL (3.4-5.0) Albumin/Globulin Ratio 1.0 (1.0-1.7) Urine Collection Type U cath Urine Color Yellow Urine Clarity Clear Urine pH 5.0 Urine Specific [place] 1.020 Urine Protein Negative mg/dL (NEG-TRACE) Urine Glucose (UA) Negative mg/dL (NEG) Urine Ketones (Stick) Negative mg/dL (NEG) Urine Blood Moderate (NEG) Urine Nitrite Positive (NEG) Urine Bilirubin Negative (NEG) Urine Urobilinogen Dipstick 0.2 mg/dL (0.2 mg/dL) Urine Leukocyte Esterase Trace (NEG) Urine RBC Rare /HPF (0-2) Urine WBC Occ /HPF (0-4) Urine Squamous Epithelial Cells Few /LPF Urine Bacteria Many /HPF (0-FEW) Urine Hyaline Casts Occasional /HPF Thyroid Stimulating Hormone (TSH) 1.709 uIU/mL (0.358-3.74) Laboratory Tests Test 07/28/19 22:22 07/28/19 22:40 07/28/19 23:20 07/29/19 09:05 Glucose (Fingerstick) 121 mg/dL (70-99) White Blood Count 9.2 x10^3/uL (4.0-11.0) Red Blood Count 4.41 x10^6/uL (3.50-5.40) Hemoglobin 13.8 g/dL (12.0-15.5) Hematocrit 40.8 % (36.0-47.0) Mean Corpuscular Volume 92 fL (79-100) Mean Corpuscular Hemoglobin 31 pg (25-35) Mean Corpuscular Hemoglobin Concent 34 g/dL (31-37) Red Cell Distribution Width 13.4 % (11.5-14.5) Platelet Count 162 x10^3/uL (140-400) Neutrophils (%) (Auto) 57 % (31-73) Lymphocytes (%) (Auto) 30 % (24-48) Monocytes (%) (Auto) 11 % (0-9) Eosinophils (%) (Auto) 1 % (0-3) Basophils (%) (Auto) 1 % (0-3) Neutrophils # (Auto) 5.2 x10^3/uL (1.8-7.7) Lymphocytes # (Auto) 2.8 x10^3/uL (1.0-4.8) Monocytes # (Auto) 1.0 x10^3/uL (0.0-1.1) Eosinophils # (Auto) 0.1 x10^3/uL (0.0-0.7) Basophils # (Auto) 0.1 x10^3/uL (0.0-0.2) Prothrombin Time 13.0 SEC (11.7-14.0) Prothromb Time International Ratio 1.0 (0.8-1.1) Sodium Level 144 mmol/L (136-145) Potassium Level 4.0 mmol/L (3.5-5.1) Chloride Level 108 mmol/L (98-107) Carbon Dioxide Level 25 mmol/L (21-32) Anion Gap 11 (6-14) Blood Urea Nitrogen 30 mg/dL (7-20) Creatinine 1.3 mg/dL (0.6-1.0) Estimated GFR (Cockcroft-Gault) 38.8 BUN/Creatinine Ratio 23 (6-20) Glucose Level 127 mg/dL (70-99) Calcium Level 9.3 mg/dL (8.5-10.1) Total Bilirubin 0.5 mg/dL (0.2-1.0) Aspartate Amino Transf (AST/SGOT) 32 U/L (15-37) Alanine Aminotransferase (ALT/SGPT) 37 U/L (14-59) Alkaline Phosphatase 75 U/L (46-116) Total Protein 7.7 g/dL (6.4-8.2) Albumin 3.8 g/dL (3.4-5.0) Albumin/Globulin Ratio 1.0 (1.0-1.7) Urine Collection Type U cath Urine Color Yellow Urine Clarity Clear Urine pH 5.0 Urine Specific [place] 1.020 Urine Protein Negative mg/dL (NEG-TRACE) Urine Glucose (UA) Negative mg/dL (NEG) Urine Ketones (Stick) Negative mg/dL (NEG) Urine Blood Moderate (NEG) Urine Nitrite Positive (NEG) Urine Bilirubin Negative (NEG) Urine Urobilinogen Dipstick 0.2 mg/dL (0.2 mg/dL) Urine Leukocyte Esterase Trace (NEG) Urine RBC Rare /HPF (0-2) Urine WBC Occ /HPF (0-4) Urine Squamous Epithelial Cells Few /LPF Urine Bacteria Many /HPF (0-FEW) Urine Hyaline Casts Occasional /HPF Thyroid Stimulating Hormone (TSH) 1.709 uIU/mL (0.358-3.74) Assessment/Plan Assessment/Plan 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 I do not know whether this is acute but I suspect it is based on her presentation. The right internal carotid artery is occluded at its origin and reconstitutes in the distal portion of the internal carotid artery at the C2 level. She had a worsening mental status over night but is starting to recover some of her function and is now able to answer questions and move her extremities. She is due to undergo MRI of the brain. We'll follow-up with the stroke area based on the MRI findings. I suspect she w ill have a large stroke area which makes surgical therapy prohibitive due to the risk of hemorrhagic conversion. I long conversation with her family at the bedside and all questions were answered to their satisfaction. I suspect the patient will need to be optimized and ultimately go to stroke rehabilitation and plan on staged right carotid endarterectomy. I will follow-up with the above findings and make appropriate recommendation based on these findings. All questions were answered to the patient's and her family satisfaction. Joanne Nogueira DO, AMENA, RPVI JOANNE NOGUEIRA DO Jul 29, 2019 13:40
--- NOTE | 2019-07-29 15:22 | PDOC2 ---
NEUROLOGY CONSULT Date of Admission Date of Admission DATE: 07/29/19 TIME: 15:07 Reason for Consult Reason for Consult: IMPRESSION: Aphasia on 07/28/19 s/p TPA. Right side weakness. Metabolic encephalopathy. Confusion. HTN. DM. 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 RECOMMENDATIONS/PLAN: TPA administrated on 07/28/19. Start ASA 325 mg daily, 1st dose 24 hours after TPA. Brain MRI w/o contrast. Echo. Lab: see orders. Statin HS. Consulted Vascular Surgery. History of Present Illness This is an 88-year-old female patient with above medical diseases has not been feeling well in [facility] past 3 days described as tiredness and weakness in one side sometime and other side other times then the entire body. She had a fall at home. EMS was called for altered mental status associated with the fall. However upon further discussion patient has had fall a few days ago with bruising to left side of her head. Patient was initially alert and oriented 3. She follows commands appropriately. NIH of 3 however non-unilateral deficit. While in [facility] ER, she was noted to have new symptoms of aphasia and her NIH score became 6. She was thought to have acute CVA and TPA was offered to her after all criteria were met. Her CTA showed high grade stenosis and occlusion of left ICA. Past Medical History Cardiovascular: HTN Pulmonary: No pertinent hx CENTRAL NERVOUS SYSTEM: CVA GI: GERD Heme/Onc: No pertinent hx Hepatobiliary: No pertinent hx Musculoskeletal: Osteoarthritis Rheumatologic: No pertinent hx Infectious disease: No pertinent hx ENT: No pertinent hx Renal/: No pertinent hx, UTI Endocrine: No pertinent hx Dermatology: No pertinent hx Past Surgical History No major surgery recently. Family History Heart Disease ALLERGY: NKDA MEDICATIONS: Refer to [facility] SOCIAL HISTORY: Denies current smoking, drinking, and illicit drug use. REVIEW OF SYSTEMS: Constitutional: No malnutrition, weight loss, cachexia. Head: No traumatic brain or head injury. Skin: No edema, or rash. Ear: No infection, tinnitus. Eyes: No vision loss or color blindness. Nose: No bleeding or purulent discharges. Hearing: Hearing decrease. Neck: No injury. Breast: No history of cancer, masses,or discharges. Cardiac: HTN. Pulmonary: No COPD. GI: GERD. Urinary/genital: UTI. Endocrinologic: Diabetes Mellitus. Skeletomuscular: Generalized weakness. Neurological: see HP. Psychiatric: Denies drug use/abuse. Otherwise, not [id number] review of systems. PHYSICAL EXAMINATION: General appearance is in subacute distress. HEENT: Normocephalic and nontraumatic. Eyes, nose, ears, and throat are unremarkable. Neck is supple. No lymphadenopathy. No crepitus. Cardiovascular: S1, S2, regular rate and rhythm. Pulmonary: mildly decreased to auscultation bilaterally. Abdomen: Bowel sounds are positive. Extremities: No rash, lesions, or edema. Restriction of range of motion in right UE. NEUROLOGICAL EXAMINATION: Awake. Speech not clear. Not oriented to time, place but knew person. PERRL. EOMI. CN: Right side VII palsy. Muscle tone: Mildly decreased in right side. Muscle strength: 3 right UE, 3-4 right LE. 5- left side. DTR: 1-2 Plantar reflex: Neutral response bilaterally Gait: not able to walk. Sensory exam: She was not able to answer question for exam. Not able to access cerebellar signs. F-T-N test fine left side. Current Medications Current Medications Current Medications Ketorolac Tromethamine (Toradol 30mg Vial) 30 mg 1X ONCE IV Last administered on 07/28/19at 23:38; Start 07/28/19 at 23:30; Stop 07/28/19 at 23:31; Status DC Ceftriaxone Sodium (Rocephin) 1 gm 1X ONCE IVP Last administered on 07/29/19at 00:53; Start 07/28/19 at 23:45; Stop 07/28/19 at 23:46; Status DC Ondansetron HCl (Zofran) 4 mg PRN Q8HRS PRN IV NAUSEA/VOMITING; Start 07/29/19 at 00:00; Stop 07/29/19 at 08:42; Status DC Acetaminophen (Tylenol) 650 mg PRN Q4HRS PRN PO FEVER; Start 07/29/19 at 00:00; Stop 07/29/19 at 08:42; Status DC Alteplase, Recombinant 0 ml @ 0 mls/hr 1X ONCE IV ; Start 07/29/19 at 00:45; Stop 07/29/19 at 00:46; Status UNV Alteplase, Recombinant 0 ml @ 0 mls/hr Q1H IV ; Start 07/29/19 at 00:45; Stop 07/29/19 at 00:46; Status UNV Sodium Chloride 50 ml @ 0 mls/hr 1X ONCE IV ; Start 07/29/19 at 00:45; Stop 07/29/19 at 00:46; Status UNV Labetalol HCl (Normodyne Iv Push) 10 mg PRN Q10MIN PRN IVP HYPERTENSION; Start 07/29/19 at 00:45; Status UNV Nicardipine HCl 50 mg/Sodium Chloride 250 ml @ 25 mls/hr CONT PRN PRN IV HYPERTENSION; Start 07/29/19 at 00:45; Status UNV Labetalol HCl (Normodyne Iv Push) 10 mg PRN Q10MIN PRN IVP HYPERTENSION Last administered on 07/29/19at 14:06; Start 07/29/19 at 00:45 Nicardipine HCl 50 mg/Sodium Chloride 250 ml @ 25 mls/hr CONT PRN PRN IV HYPERTENSION; Start 07/29/19 at 00:45 Acetaminophen (Tylenol) 650 mg PRN Q6HRS PRN PO MILD PAIN / TEMP; Start 07/29/19 at 00:45 Acetaminophen (Tylenol Supp) 325 mg PRN Q6HRS PRN NC MILD PAIN / TEMP; Start 07/29/19 at 00:45 Ondansetron HCl (Zofran) 4 mg PRN Q6HRS PRN IV NAUSEA/VOMITING; Start 07/29/19 at 00:45 Alteplase, Recombinant 5.7 ml @ 342 mls/hr 1X ONCE IV Last administered on 07/29/19at 01:00; Start 07/29/19 at 01:00; Stop 07/29/19 at 01:01; Status DC Alteplase, Recombinant 51 ml @ 51 mls/hr Q1H IV Last administered on 07/29/19at 01:08; Start 07/29/19 at 01:00; Stop 07/29/19 at 01:59; Status DC Sodium Chloride 50 ml @ 200 mls/hr 1X ONCE IV Last administered on 07/29/19at 01:04; Start 07/29/19 at 01:00; Stop 07/29/19 at 01:14; Status DC Iohexol (Omnipaque 300 Mg/ml) 50 ml 1X ONCE IV Last administered on 07/29/19at 01:34; Start 07/29/19 at 01:15; Stop 07/29/19 at 01:16; Status DC Info (CONTRAST GIVEN -- Rx MONITORING) 1 each PRN DAILY PRN MC SEE COMMENTS; Start 07/29/19 at 01:15; Stop 07/31/19 at 01:14 Carvedilol (Coreg) 6.25 mg BIDWMEALS PO ; Start 07/29/19 at 09:00 Paroxetine HCl (Paxil) 10 mg DAILY PO ; Start 07/29/19 at 09:00 Pantoprazole Sodium (Protonix) 40 mg DAILYAC PO ; Start 07/29/19 at 09:00 Oxybutynin Chloride (Ditropan) 5 mg DAILY PO ; Start 07/29/19 at 09:00 Ceftriaxone Sodium (Rocephin) 1 gm Q24H IVP ; Start 07/29/19 at 19:00; Stop 07/31/19 at 19:01 Active Scripts Active Culturelle (Lactobacillus Rhamnosus Gg) 1 Each Cap.sprink 1 Cap PO BID 14 Days Levofloxacin 250 Mg Tablet 250 Mg PO DAILY06 7 Days Reported Tramadol Hcl 50 Mg Tablet 50 Mg PO Q6HRS PRN Ranitidine Hcl 150 Mg Capsule 150 Mg PO BID Paroxetine Hcl 10 Mg Tablet 10 Mg PO DAILY Oxybutynin Chloride Er (Oxybutynin Chloride) 5 Mg Tab.er.24 1 Tab PO DAILY Prilosec Otc (Omeprazole Magnesium) 20 Mg Tablet.dr 2 Tab PO DAILY Meloxicam 7.5 Mg Tablet 1 Tab PO DAILY Carvedilol (Carvedilol) 6.25 Mg Tablet 6.25 Mg PO BIDWMEALS Allergies Allergies: Allergies Coded Allergies Type Severity Reaction Last Updated Verified No Known Drug Allergies 08/27/18 No ROS Review of System The patient denies any associated fevers, chills, headache, ear pain, rhinorrhea, sore throat, stiff neck, productive cough, chest pain, shortness of breath, back or flank pain, abdominal pain, nausea, vomiting, diarrhea, constipation, dysuria, rash, numbness, weakness, tingling, incontinence, difficulty ambulating, or diaphoresis. Physical Exam Physical Exam General: Well developed, well nourished, no acute distress, well appearing HEENT: Pupils equally round and reactive to light, EOMI, no discharge, normal conjunctiva Neck: Supple, no nuchal rigidity, no JVD, trachea midline, no tenderness Cardiac: RRR, no murmurs, no gallops, no rubs Chest/Lungs: CTAB, no wheeze, no rhonchi, no crackles Abdomen: soft, non-distended, no guarding, no peritoneal signs, non-tender Back: No tenderness Extremities: no edema, pulses intact, non-tender,capillary refill <3 sec bilateral upper and lower extremities, Neuro: Alert and oriented x 4, no focal deficits, normal speech Vitals Vitals: Vital Signs Date Time Temp Pulse Resp B/P (MAP) Pulse Ox O2 Delivery O2 Flow Rate FiO2 07/29/19 14:06 73 178/70 07/29/19 12:00 Room Air 07/29/19 11:30 18 98 07/29/19 08:00 98.5 98.5 Labs Labs Laboratory Tests Test 07/28/19 22:22 07/28/19 22:40 07/28/19 23:20 07/29/19 09:05 Glucose (Fingerstick) 121 mg/dL (70-99) White Blood Count 9.2 x10^3/uL (4.0-11.0) Red Blood Count 4.41 x10^6/uL (3.50-5.40) Hemoglobin 13.8 g/dL (12.0-15.5) Hematocrit 40.8 % (36.0-47.0) Mean Corpuscular Volume 92 fL (79-100) Mean Corpuscular Hemoglobin 31 pg (25-35) Mean Corpuscular Hemoglobin Concent 34 g/dL (31-37) Red Cell Distribution Width 13.4 % (11.5-14.5) Platelet Count 162 x10^3/uL (140-400) Neutrophils (%) (Auto) 57 % (31-73) Lymphocytes (%) (Auto) 30 % (24-48) Monocytes (%) (Auto) 11 % (0-9) Eosinophils (%) (Auto) 1 % (0-3) Basophils (%) (Auto) 1 % (0-3) Neutrophils # (Auto) 5.2 x10^3/uL (1.8-7.7) Lymphocytes # (Auto) 2.8 x10^3/uL (1.0-4.8) Monocytes # (Auto) 1.0 x10^3/uL (0.0-1.1) Eosinophils # (Auto) 0.1 x10^3/uL (0.0-0.7) Basophils # (Auto) 0.1 x10^3/uL (0.0-0.2) Prothrombin Time 13.0 SEC (11.7-14.0) Prothromb Time International Ratio 1.0 (0.8-1.1) Sodium Level 144 mmol/L (136-145) Potassium Level 4.0 mmol/L (3.5-5.1) Chloride Level 108 mmol/L (98-107) Carbon Dioxide Level 25 mmol/L (21-32) Anion Gap 11 (6-14) Blood Urea Nitrogen 30 mg/dL (7-20) Creatinine 1.3 mg/dL (0.6-1.0) Estimated GFR (Cockcroft-Gault) 38.8 BUN/Creatinine Ratio 23 (6-20) Glucose Level 127 mg/dL (70-99) Calcium Level 9.3 mg/dL (8.5-10.1) Total Bilirubin 0.5 mg/dL (0.2-1.0) Aspartate Amino Transf (AST/SGOT) 32 U/L (15-37) Alanine Aminotransferase (ALT/SGPT) 37 U/L (14-59) Alkaline Phosphatase 75 U/L (46-116) Total Protein 7.7 g/dL (6.4-8.2) Albumin 3.8 g/dL (3.4-5.0) Albumin/Globulin Ratio 1.0 (1.0-1.7) Urine Collection Type U cath Urine Color Yellow Urine Clarity Clear Urine pH 5.0 Urine Specific [place] 1.020 Urine Protein Negative mg/dL (NEG-TRACE) Urine Glucose (UA) Negative mg/dL (NEG) Urine Ketones (Stick) Negative mg/dL (NEG) Urine Blood Moderate (NEG) Urine Nitrite Positive (NEG) Urine Bilirubin Negative (NEG) Urine Urobilinogen Dipstick 0.2 mg/dL (0.2 mg/dL) Urine Leukocyte Esterase Trace (NEG) Urine RBC Rare /HPF (0-2) Urine WBC Occ /HPF (0-4) Urine Squamous Epithelial Cells Few /LPF Urine Bacteria Many /HPF (0-FEW) Urine Hyaline Casts Occasional /HPF Thyroid Stimulating Hormone (TSH) 1.709 uIU/mL (0.358-3.74) Test 07/29/19 13:25 Cholesterol Level 186 mg/dL (0-200) Laboratory Tests Test 07/28/19 22:22 07/28/19 22:40 07/28/19 23:20 07/29/19 09:05 Glucose (Fingerstick) 121 mg/dL (70-99) White Blood Count 9.2 x10^3/uL (4.0-11.0) Red Blood Count 4.41 x10^6/uL (3.50-5.40) Hemoglobin 13.8 g/dL (12.0-15.5) Hematocrit 40.8 % (36.0-47.0) Mean Corpuscular Volume 92 fL (79-100) Mean Corpuscular Hemoglobin 31 pg (25-35) Mean Corpuscular Hemoglobin Concent 34 g/dL (31-37) Red Cell Distribution Width 13.4 % (11.5-14.5) Platelet Count 162 x10^3/uL (140-400) Neutrophils (%) (Auto) 57 % (31-73) Lymphocytes (%) (Auto) 30 % (24-48) Monocytes (%) (Auto) 11 % (0-9) Eosinophils (%) (Auto) 1 % (0-3) Basophils (%) (Auto) 1 % (0-3) Neutrophils # (Auto) 5.2 x10^3/uL (1.8-7.7) Lymphocytes # (Auto) 2.8 x10^3/uL (1.0-4.8) Monocytes # (Auto) 1.0 x10^3/uL (0.0-1.1) Eosinophils # (Auto) 0.1 x10^3/uL (0.0-0.7) Basophils # (Auto) 0.1 x10^3/uL (0.0-0.2) Prothrombin Time 13.0 SEC (11.7-14.0) Prothromb Time International Ratio 1.0 (0.8-1.1) Sodium Level 144 mmol/L (136-145) Potassium Level 4.0 mmol/L (3.5-5.1) Chloride Level 108 mmol/L (98-107) Carbon Dioxide Level 25 mmol/L (21-32) Anion Gap 11 (6-14) Blood Urea Nitrogen 30 mg/dL (7-20) Creatinine 1.3 mg/dL (0.6-1.0) Estimated GFR (Cockcroft-Gault) 38.8 BUN/Creatinine Ratio 23 (6-20) Glucose Level 127 mg/dL (70-99) Calcium Level 9.3 mg/dL (8.5-10.1) Total Bilirubin 0.5 mg/dL (0.2-1.0) Aspartate Amino Transf (AST/SGOT) 32 U/L (15-37) Alanine Aminotransferase (ALT/SGPT) 37 U/L (14-59) Alkaline Phosphatase 75 U/L (46-116) Total Protein 7.7 g/dL (6.4-8.2) Albumin 3.8 g/dL (3.4-5.0) Albumin/Globulin Ratio 1.0 (1.0-1.7) Urine Collection Type U cath Urine Color Yellow Urine Clarity Clear Urine pH 5.0 Urine Specific [place] 1.020 Urine Protein Negative mg/dL (NEG-TRACE) Urine Glucose (UA) Negative mg/dL (NEG) Urine Ketones (Stick) Negative mg/dL (NEG) Urine Blood Moderate (NEG) Urine Nitrite Positive (NEG) Urine Bilirubin Negative (NEG) Urine Urobilinogen Dipstick 0.2 mg/dL (0.2 mg/dL) Urine Leukocyte Esterase Trace (NEG) Urine RBC Rare /HPF (0-2) Urine WBC Occ /HPF (0-4) Urine Squamous Epithelial Cells Few /LPF Urine Bacteria Many /HPF (0-FEW) Urine Hyaline Casts Occasional /HPF Thyroid Stimulating Hormone (TSH) 1.709 uIU/mL (0.358-3.74) Test 07/29/19 13:25 Cholesterol Level 186 mg/dL (0-200) JACQUE WINKLER MD Jul 29, 2019 15:22
[2019-07-29 15:56] LABS: CHOLESTEROL/HDL RATIO 4.5
[2019-07-29] MEDS: cefTRIAXone IV Push 1 GM VIAL. IVP SCH (20:22)
[2019-07-29] MEDS ORDERED: SIMVASTATIN 20 MG TABLET PO SCH (21:00)
[2019-07-30] VITALS (19 sets, daily range): BP systolic 110–177; BP diastolic 6–89
[2019-07-30 06:17] LABS: CHOLESTEROL/HDL RATIO 4.5
[2019-07-30] MEDS: PANTOPRAZOLE 40 MG TABLET.DR. PO SCH (07:30)
[2019-07-30] MEDS: CARVEDILOL 6.25 MG TABLET. PO SCH ×2 (07:38→17:00)
[2019-07-30] MEDS: PARoxetine 10 MG TABLET PO SCH (07:39)
[2019-07-30] MEDS: OXYBUTYNIN CHLORIDE 5 MG TABLET PO SCH (07:39)
[2019-07-30] MEDS ORDERED: ASPIRIN 325 MG TABLET PO SCH (08:00)
--- NOTE | 2019-07-30 09:14 | PDOC ---
PROGRESS NOTES Chief Complaint Chief Complaint A/P: Acute CVA - s/p tPA, in ICU, monitored. frequent neuro checks, hold blood thinners today. tight BP control. Test for thyroid disease, lipids, A1C. Consult neurology and vascular surgery. 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 Will treat both Aphasia on 07/28/19 s/p TPA. Right side weakness. 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 Occlusion of the left internal carotid artery - vascular surgery consulted. 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 EMS was called for altered mental status associated with the fall. However upon further discussion patient has had fall a few days ago with bruising to left side of her head. Patient was initially alert and oriented 3. She follows commands appropriately. NIH of 3 however non-unilateral deficit. See stroke scale. Patient complains of nausea. Unknown blood thinning medications. Patient's poor historian, no present family at this time. She denies any chest pain, shortness breath, visual changes. Patient does not live with family she goes back and forth between friends. They state she has had intermittent falls most recently tonight. They also state her speech is intermittently slurred. No exact onset of symptoms appreciated after talking with family. Around midnight patient had a acute change with NIH of 10. Patient had difficulty answering questions and would only obey one command. She had concern for facial paralysis, drift of her right upper extremity, mild sensation deficit appreciated to the right as well as moderate aphasia and slurring of words. She has sons who are not involved with her care and she has no power of erisa attorney. She underwent tPA administration and was admitted to ICU for further care per recommendations of stroke center. More interactive last night, tearful, wishing to home with her friends. No pain complaints. Moving extremities better. Following commands. Plan for MRI today, rehab modalities Vitals Vitals Vital Signs Date Time Temp Pulse Resp B/P (MAP) Pulse Ox O2 Delivery O2 Flow Rate FiO2 07/30/19 09:00 86 20 137/70 (92) 95 Room Air 07/30/19 08:00 97.9 97.9 Physical Exam General: Alert, Cooperative, No acute distress Heart: Regular rate, Normal S1, Normal S2 Lungs: Clear Abdomen: Normal bowel sounds, Soft, No tenderness, No hepatosplenomegaly, No masses Extremities: No clubbing, No cyanosis, No edema, Normal pulses, No tenderness/swelling Skin: No rashes, No breakdown, No significant lesion Labs LABS Laboratory Tests Test 07/29/19 13:25 07/30/19 04:45 Cholesterol Level 186 mg/dL (0-200) 178 mg/dL (0-200) Triglycerides Level 147 mg/dL (0-150) LDL Cholesterol, Calculated 109 mg/dL (0-100) VLDL Cholesterol, Calculated 29 mg/dL (0-40) Non-HDL Cholesterol Calculated 138 mg/dL (0-129) HDL Cholesterol 40 mg/dL (40-60) Cholesterol/HDL Ratio 4.5 Assessment and Plan Assessmemt and Plan Problems Medical Problems: (1) Altered mental status Status: Acute (2) Fall Status: Acute (3) Old cerebrovascular accident (CVA) without late effect Status: Acute (4) UTI (urinary tract infection) Status: Acute Comment Review of Relevant I have reviewed the following items shannan (where applicable) has been applied. Labs Laboratory Tests Test 07/28/19 22:22 07/28/19 22:40 07/28/19 23:20 07/29/19 09:05 Glucose (Fingerstick) 121 mg/dL (70-99) White Blood Count 9.2 x10^3/uL (4.0-11.0) Red Blood Count 4.41 x10^6/uL (3.50-5.40) Hemoglobin 13.8 g/dL (12.0-15.5) Hematocrit 40.8 % (36.0-47.0) Mean Corpuscular Volume 92 fL (79-100) Mean Corpuscular Hemoglobin 31 pg (25-35) Mean Corpuscular Hemoglobin Concent 34 g/dL (31-37) Red Cell Distribution Width 13.4 % (11.5-14.5) Platelet Count 162 x10^3/uL (140-400) Neutrophils (%) (Auto) 57 % (31-73) Lymphocytes (%) (Auto) 30 % (24-48) Monocytes (%) (Auto) 11 % (0-9) Eosinophils (%) (Auto) 1 % (0-3) Basophils (%) (Auto) 1 % (0-3) Neutrophils # (Auto) 5.2 x10^3/uL (1.8-7.7) Lymphocytes # (Auto) 2.8 x10^3/uL (1.0-4.8) Monocytes # (Auto) 1.0 x10^3/uL (0.0-1.1) Eosinophils # (Auto) 0.1 x10^3/uL (0.0-0.7) Basophils # (Auto) 0.1 x10^3/uL (0.0-0.2) Prothrombin Time 13.0 SEC (11.7-14.0) Prothromb Time International Ratio 1.0 (0.8-1.1) Sodium Level 144 mmol/L (136-145) Potassium Level 4.0 mmol/L (3.5-5.1) Chloride Level 108 mmol/L (98-107) Carbon Dioxide Level 25 mmol/L (21-32) Anion Gap 11 (6-14) Blood Urea Nitrogen 30 mg/dL (7-20) Creatinine 1.3 mg/dL (0.6-1.0) Estimated GFR (Cockcroft-Gault) 38.8 BUN/Creatinine Ratio 23 (6-20) Glucose Level 127 mg/dL (70-99) Calcium Level 9.3 mg/dL (8.5-10.1) Total Bilirubin 0.5 mg/dL (0.2-1.0) Aspartate Amino Transf (AST/SGOT) 32 U/L (15-37) Alanine Aminotransferase (ALT/SGPT) 37 U/L (14-59) Alkaline Phosphatase 75 U/L (46-116) Total Protein 7.7 g/dL (6.4-8.2) Albumin 3.8 g/dL (3.4-5.0) Albumin/Globulin Ratio 1.0 (1.0-1.7) Urine Collection Type U cath Urine Color Yellow Urine Clarity Clear Urine pH 5.0 Urine Specific [place] 1.020 Urine Protein Negative mg/dL (NEG-TRACE) Urine Glucose (UA) Negative mg/dL (NEG) Urine Ketones (Stick) Negative mg/dL (NEG) Urine Blood Moderate (NEG) Urine Nitrite Positive (NEG) Urine Bilirubin Negative (NEG) Urine Urobilinogen Dipstick 0.2 mg/dL (0.2 mg/dL) Urine Leukocyte Esterase Trace (NEG) Urine RBC Rare /HPF (0-2) Urine WBC Occ /HPF (0-4) Urine Squamous Epithelial Cells Few /LPF Urine Bacteria Many /HPF (0-FEW) Urine Hyaline Casts Occasional /HPF Hemoglobin A1c 6.0 % (4.8-5.6) Triglycerides Level 124 mg/dL (0-150) Cholesterol Level 183 mg/dL (0-200) LDL Cholesterol, Calculated 117 mg/dL (0-100) VLDL Cholesterol, Calculated 25 mg/dL (0-40) Non-HDL Cholesterol Calculated 142 mg/dL (0-129) HDL Cholesterol 41 mg/dL (40-60) Cholesterol/HDL Ratio 4.5 Thyroid Stimulating Hormone (TSH) 1.709 uIU/mL (0.358-3.74) Test 07/29/19 13:25 07/30/19 04:45 Cholesterol Level 186 mg/dL (0-200) 178 mg/dL (0-200) Triglycerides Level 147 mg/dL (0-150) LDL Cholesterol, Calculated 109 mg/dL (0-100) VLDL Cholesterol, Calculated 29 mg/dL (0-40) Non-HDL Cholesterol Calculated 138 mg/dL (0-129) HDL Cholesterol 40 mg/dL (40-60) Cholesterol/HDL Ratio 4.5 Laboratory Tests Test 07/29/19 13:25 07/30/19 04:45 Cholesterol Level 186 mg/dL (0-200) 178 mg/dL (0-200) Triglycerides Level 147 mg/dL (0-150) LDL Cholesterol, Calculated 109 mg/dL (0-100) VLDL Cholesterol, Calculated 29 mg/dL (0-40) Non-HDL Cholesterol Calculated 138 mg/dL (0-129) HDL Cholesterol 40 mg/dL (40-60) Cholesterol/HDL Ratio 4.5 Microbiology 07/29/19 Blood Culture - Preliminary, Resulted NO GROWTH AFTER 1 DAY Medications Current Medications Ketorolac Tromethamine (Toradol 30mg Vial) 30 mg 1X ONCE IV Last administered on 07/28/19at 23:38; Start 07/28/19 at 23:30; Stop 07/28/19 at 23:31; Status DC Ceftriaxone Sodium (Rocephin) 1 gm 1X ONCE IVP Last administered on 07/29/19at 00:53; Start 07/28/19 at 23:45; Stop 07/28/19 at 23:46; Status DC Ondansetron HCl (Zofran) 4 mg PRN Q8HRS PRN IV NAUSEA/VOMITING; Start 07/29/19 at 00:00; Stop 07/29/19 at 08:42; Status DC Acetaminophen (Tylenol) 650 mg PRN Q4HRS PRN PO FEVER; Start 07/29/19 at 00:00; Stop 07/29/19 at 08:42; Status DC Alteplase, Recombinant 0 ml @ 0 mls/hr 1X ONCE IV ; Start 07/29/19 at 00:45; Stop 07/29/19 at 00:46; Status UNV Alteplase, Recombinant 0 ml @ 0 mls/hr Q1H IV ; Start 07/29/19 at 00:45; Stop 07/29/19 at 00:46; Status UNV Sodium Chloride 50 ml @ 0 mls/hr 1X ONCE IV ; Start 07/29/19 at 00:45; Stop 07/29/19 at 00:46; Status UNV Labetalol HCl (Normodyne Iv Push) 10 mg PRN Q10MIN PRN IVP HYPERTENSION; Start 07/29/19 at 00:45; Status UNV Nicardipine HCl 50 mg/Sodium Chloride 250 ml @ 25 mls/hr CONT PRN PRN IV HYPERTENSION; Start 07/29/19 at 00:45; Status UNV Labetalol HCl (Normodyne Iv Push) 10 mg PRN Q10MIN PRN IVP HYPERTENSION Last administered on 07/29/19at 14:06; Start 07/29/19 at 00:45 Nicardipine HCl 50 mg/Sodium Chloride 250 ml @ 25 mls/hr CONT PRN PRN IV HYPERTENSION; Start 07/29/19 at 00:45 Acetaminophen (Tylenol) 650 mg PRN Q6HRS PRN PO MILD PAIN / TEMP; Start at 00:45 Acetaminophen (Tylenol Supp) 325 mg PRN Q6HRS PRN AK MILD PAIN / TEMP; Start 07/29/19 at 00:45 Ondansetron HCl (Zofran) 4 mg PRN Q6HRS PRN IV NAUSEA/VOMITING; Start 07/29/19 at 00:45 Alteplase, Recombinant 5.7 ml @ 342 mls/hr 1X ONCE IV Last administered on 07/29/19at 01:00; Start 07/29/19 at 01:00; Stop 07/29/19 at 01:01; Status DC Alteplase, Recombinant 51 ml @ 51 mls/hr Q1H IV Last administered on 07/29/19at 01:08; Start 07/29/19 at 01:00; Stop 07/29/19 at 01:59; Status DC Sodium Chloride 50 ml @ 200 mls/hr 1X ONCE IV Last administered on 07/29/19at 01:04; Start 07/29/19 at 01:00; Stop 07/29/19 at 01:14; Status DC Iohexol (Omnipaque 300 Mg/ml) 50 ml 1X ONCE IV Last administered on 07/29/19at 01:34; Start 07/29/19 at 01:15; Stop 07/29/19 at 01:16; Status DC Info (CONTRAST GIVEN -- Rx MONITORING) 1 each PRN DAILY PRN MC SEE COMMENTS; Start 07/29/19 at 01:15; Stop 07/31/19 at 01:14 Carvedilol (Coreg) 6.25 mg BIDWMEALS PO ; Start 07/29/19 at 09:00 Paroxetine HCl (Paxil) 10 mg DAILY PO ; Start 07/29/19 at 09:00 Pantoprazole Sodium (Protonix) 40 mg DAILYAC PO ; Start 07/29/19 at 09:00 Oxybutynin Chloride (Ditropan) 5 mg DAILY PO ; Start 07/29/19 at 09:00 Ceftriaxone Sodium (Rocephin) 1 gm Q24H IVP Last administered on 07/29/19at 20:22; Start 07/29/19 at 19:00; Stop 07/31/19 at 19:01 Simvastatin (Zocor) 20 mg HS PO ; Start 07/29/19 at 21:00 Aspirin (Richard Aspirin) 325 mg DAILYWBKFT PO ; Start 07/30/19 at 08:00 Active Scripts Active Culturelle (Lactobacillus Rhamnosus Gg) 1 Each Cap.sprink 1 Cap PO BID 14 Days Levofloxacin 250 Mg Tablet 250 Mg PO DAILY06 7 Days Reported Tramadol Hcl 50 Mg Tablet 50 Mg PO Q6HRS PRN Ranitidine Hcl 150 Mg Capsule 150 Mg PO BID Paroxetine Hcl 10 Mg Tablet 10 Mg PO DAILY Oxybutynin Chloride Er (Oxybutynin Chloride) 5 Mg Tab.er.24 1 Tab PO DAILY Prilosec Otc (Omeprazole Magnesium) 20 Mg Tablet.dr 2 Tab PO DAILY Meloxicam 7.5 Mg Tablet 1 Tab PO DAILY Carvedilol (Carvedilol) 6.25 Mg Tablet 6.25 Mg PO BIDWMEALS Vitals/I & O Vital Sign - Last 24 Hours 07/29/19 07/29/19 07/29/19 07/29/19 09:30 10:00 10:30 11:00 Pulse 80 66 69 80 Resp 20 20 18 20 B/P (MAP) 118/64 (82) 143/50 (81) 159/73 (101) Pulse Ox 94 94 94 98 O2 Delivery Room Air Room Air Room Air Room Air 07/29/19 07/29/19 07/29/19 07/29/19 11:30 12:00 12:00 13:00 Temp 97.8 97.8 Pulse 72 70 74 Resp 18 18 22 B/P (MAP) 169/52 (91) 154/66 (95) 137/58 (84) Pulse Ox 98 98 94 O2 Delivery Room Air Room Air Room Air Room Air 07/29/19 07/29/19 07/29/19 07/29/19 14:00 14:06 15:00 16:00 Temp 97.0 97.0 Pulse 74 73 66 70 Resp 22 20 14 B/P (MAP) 178/70 (106) 178/70 124/56 (78) 135/55 (81) Pulse Ox 94 93 94 O2 Delivery Room Air Room Air Room Air 07/29/19 07/29/19 07/29/19 07/29/19 16:00 17:00 18:00 19:00 Pulse 68 74 72 Resp 12 14 23 B/P (MAP) 146/63 (90) 134/89 (104) 156/61 (92) Pulse Ox 95 94 93 O2 Delivery Room Air Room Air Room Air Room Air 07/29/19 07/29/19 07/29/19 07/29/19 19:59 20:00 21:10 22:00 Temp 97.2 97.2 Pulse 78 72 84 Resp 21 23 20 B/P (MAP) 179/73 (108) 121/61 (81) 133/73 (93) Pulse Ox 94 92 94 O2 Delivery Room Air Room Air Room Air Room Air 07/29/19 07/30/19 07/30/19 07/30/19 23:02 00:00 00:00 01:00 Temp 98.9 98.9 Pulse 72 69 69 Resp 20 19 B/P (MAP) 157/57 (90) 160/48 (85) 142/6 (51) Pulse Ox 92 92 93 O2 Delivery Room Air Room Air Room Air Room Air 07/30/19 07/30/19 07/30/19 07/30/19 01:00 02:00 03:00 04:00 Temp 98.2 98.2 Pulse 78 78 72 Resp 20 18 18 B/P (MAP) 177/89 (118) 134/49 (77) 176/51 (92) Pulse Ox 93 92 93 O2 Delivery Room Air Room Air Room Air 07/30/19 07/30/19 07/30/19 07/30/19 04:00 04:00 05:00 06:00 Pulse 74 76 71 Resp 18 17 20 B/P (MAP) 131/58 (82) 136/52 (80) 110/60 (77) Pulse Ox 93 93 93 O2 Delivery Room Air Room Air Room Air Room Air 07/30/19 07/30/19 07/30/19 07/30/19 07:00 07:59 08:00 08:00 Temp 97.9 97.9 Pulse 68 68 Resp 14 17 B/P (MAP) 139/50 (79) 142/42 (75) Pulse Ox 93 93 O2 Delivery Room Air Room Air Room Air 07/30/19 09:00 Pulse 86 Resp 20 B/P (MAP) 137/70 (92) Pulse Ox 95 O2 Delivery Room Air Intake and Output 07/29/19 07/29/19 07/30/19 15:02 23:02 07:02 Intake Total 0 ml 0 ml Balance 0 ml 0 ml JAYDEN ESCOBAR MD Jul 30, 2019 09:14
--- NOTE | 2019-07-30 13:02 | CARD ---
MR#: [id number] Date of Study: 07/30/2019 Ordering Physician: JACQUE WINKLER, Referring Physician: JACQUE WINKLER, Tech: Michelle Cardoso RDCS APPROVED REPORT EXAM: Two-dimensional and M-mode echocardiogram with Doppler, color Doppler with contrast. Other Information Quality : AverageHR: 74bpm Rhythm : NSR INDICATION CVA/TIA Echo Enhancing Agent Indication: Rule Out Septal Defect Agent/Amount Used: Definity 9mL 2D DIMENSIONS Left Atrium(2D)4.4 (1.6-4.0cm)IVSd0.9 (0.7-1.1cm) Aortic Root(2D)2.4 (2.0-3.7cm)LVDd3.1 (3.9-5.9cm) LVOT Diameter2.0 (1.8-2.4cm)PWd0.9 (0.7-1.1cm) LA Dbhmst75 (18-58mL)LVDs2.0 (2.5-4.0cm) FS (%) 36.4 %SV26.1 ml LVEF(%)67.7 (>50%) Aortic Valve AoV Peak Antonio.154.1cm/sAoV VTI27.4cm AO Peak GR.9.5mmHgLVOT Peak Antonio.140.5cm/s AO Mean GR.4mmHgAVA (VMAX)2.74cm2 AI P 1/2 Hshh196du Tricuspid Valve TR P. Vtffevrx330dx/sRAP [id number] TR Peak Gr.[id number] Pulmonary Vein S1 Stqdfoat77.1cm/sD2 Auasewcr10.3cm/s LEFT VENTRICLE The left ventricle cavity is small. There is moderate concentric left ventricular hypertrophy. The le ft ventricular systolic function is normal and the ejection fraction is within normal range. EF 70% T here is normal LV segmental wall motion. Transmitral Doppler flow pattern is Grade I-abnormal relaxat ion pattern. No left ventricle thrombus noted on this study. There is no ventricular septal defect vi sualized. There is no left ventricular aneurysm. There is no mass noted in the left ventricle. RIGHT VENTRICLE The right ventricle is normal size. There is normal right ventricular wall thickness. The right ventr icular systolic function is normal. ATRIA The left atrium is severely dilated. The right atrium size is normal. The interatrial septum is intac t with no evidence for an atrial septal defect or patent foramen ovale as noted on 2-D or Doppler galo ging. AORTIC VALVE The aortic valve is normal in structure and function. Doppler and Color Flow revealed moderate aortic regurgitation. There is no significant aortic valvular stenosis. There is no aortic valvular vegetat ion. MITRAL VALVE The mitral valve is normal in structure and function. There is no evidence of mitral valve prolapse. There is no mitral valve stenosis. Doppler and Color Flow revealed trace mitral regurgitation. TRICUSPID VALVE The tricuspid valve is normal in structure and function. Doppler and Color Flow revealed mild to mode rate tricuspid regurgitation. RVSP 31 mm Hg There is no tricuspid valve prolapse or vegetation. There is no tricuspid valve stenosis. PULMONIC VALVE Doppler and Color Flow revealed mild pulmonic valvular regurgitation. There is no pulmonic valvular s tenosis. GREAT VESSELS The aortic root is normal in size. The IVC was not visualized. PERICARDIAL EFFUSION There is no pleural effusion. There is no evidence of significant pericardial effusion. Critical Notification Critical Value: No <Conclusion> There is moderate concentric left ventricular hypertrophy. The left ventricular systolic function is normal and the ejection fraction is within normal range. E F 70% There is normal LV segmental wall motion. Doppler and Color Flow revealed moderate aortic regurgitation. Doppler and Color Flow revealed mild to moderate tricuspid regurgitation. RVSP 31 mm Hg Signed by : Rajendra Solo, Electronically Approved : 07/30/2019 13:02:09
--- NOTE | 2019-07-30 13:31 | PDOC ---
SURGICAL PROGRESS NOTE Subjective Patient was seen and examined at the bedside this morning and overall is doing better. Her neurologic status is stable and she is still showing right-sided neglect. His had no decline in her neurologic function. She is still able to answer questions appropriately and respond. Vital Signs Vital Signs Date Time Temp Pulse Resp B/P (MAP) Pulse Ox O2 Delivery O2 Flow Rate FiO2 07/30/19 13:00 78 17 142/57 (85) 94 Room Air 07/30/19 12:00 98.5 98.5 I&O Intake and Output 07/30/19 07:00 Intake Total 0 ml Balance 0 ml Intake Oral 0 ml # Voids 3 General: Alert, Cooperative, No acute distress Heart: Normal S1, Normal S2 Abdomen: Normal bowel sounds, Soft, No tenderness Neuro: Other (right-sided neglect with right upper and lower extremity weakness. Left-sided facial droop stable.) Labs Laboratory Tests Test 07/28/19 22:22 07/28/19 22:40 07/28/19 23:20 07/29/19 09:05 Glucose (Fingerstick) 121 mg/dL (70-99) White Blood Count 9.2 x10^3/uL (4.0-11.0) Red Blood Count 4.41 x10^6/uL (3.50-5.40) Hemoglobin 13.8 g/dL (12.0-15.5) Hematocrit 40.8 % (36.0-47.0) Mean Corpuscular Volume 92 fL (79-100) Mean Corpuscular Hemoglobin 31 pg (25-35) Mean Corpuscular Hemoglobin Concent 34 g/dL (31-37) Red Cell Distribution Width 13.4 % (11.5-14.5) Platelet Count 162 x10^3/uL (140-400) Neutrophils (%) (Auto) 57 % (31-73) Lymphocytes (%) (Auto) 30 % (24-48) Monocytes (%) (Auto) 11 % (0-9) Eosinophils (%) (Auto) 1 % (0-3) Basophils (%) (Auto) 1 % (0-3) Neutrophils # (Auto) 5.2 x10^3/uL (1.8-7.7) Lymphocytes # (Auto) 2.8 x10^3/uL (1.0-4.8) Monocytes # (Auto) 1.0 x10^3/uL (0.0-1.1) Eosinophils # (Auto) 0.1 x10^3/uL (0.0-0.7) Basophils # (Auto) 0.1 x10^3/uL (0.0-0.2) Prothrombin Time 13.0 SEC (11.7-14.0) Prothromb Time International Ratio 1.0 (0.8-1.1) Sodium Level 144 mmol/L (136-145) Potassium Level 4.0 mmol/L (3.5-5.1) Chloride Level 108 mmol/L (98-107) Carbon Dioxide Level 25 mmol/L (21-32) Anion Gap 11 (6-14) Blood Urea Nitrogen 30 mg/dL (7-20) Creatinine 1.3 mg/dL (0.6-1.0) Estimated GFR (Cockcroft-Gault) 38.8 BUN/Creatinine Ratio 23 (6-20) Glucose Level 127 mg/dL (70-99) Calcium Level 9.3 mg/dL (8.5-10.1) Total Bilirubin 0.5 mg/dL (0.2-1.0) Aspartate Amino Transf (AST/SGOT) 32 U/L (15-37) Alanine Aminotransferase (ALT/SGPT) 37 U/L (14-59) Alkaline Phosphatase 75 U/L (46-116) Total Protein 7.7 g/dL (6.4-8.2) Albumin 3.8 g/dL (3.4-5.0) Albumin/Globulin Ratio 1.0 (1.0-1.7) Urine Collection Type U cath Urine Color Yellow Urine Clarity Clear Urine pH 5.0 Urine Specific [place] 1.020 Urine Protein Negative mg/dL (NEG-TRACE) Urine Glucose (UA) Negative mg/dL (NEG) Urine Ketones (Stick) Negative mg/dL (NEG) Urine Blood Moderate (NEG) Urine Nitrite Positive (NEG) Urine Bilirubin Negative (NEG) Urine Urobilinogen Dipstick 0.2 mg/dL (0.2 mg/dL) Urine Leukocyte Esterase Trace (NEG) Urine RBC Rare /HPF (0-2) Urine WBC Occ /HPF (0-4) Urine Squamous Epithelial Cells Few /LPF Urine Bacteria Many /HPF (0-FEW) Urine Hyaline Casts Occasional /HPF Hemoglobin A1c 6.0 % (4.8-5.6) Triglycerides Level 124 mg/dL (0-150) Cholesterol Level 183 mg/dL (0-200) LDL Cholesterol, Calculated 117 mg/dL (0-100) VLDL Cholesterol, Calculated 25 mg/dL (0-40) Non-HDL Cholesterol Calculated 142 mg/dL (0-129) HDL Cholesterol 41 mg/dL (40-60) Cholesterol/HDL Ratio 4.5 Thyroid Stimulating Hormone (TSH) 1.709 uIU/mL (0.358-3.74) Test 07/29/19 13:25 07/30/19 04:45 Cholesterol Level 186 mg/dL (0-200) 178 mg/dL (0-200) Triglycerides Level 147 mg/dL (0-150) LDL Cholesterol, Calculated 109 mg/dL (0-100) VLDL Cholesterol, Calculated 29 mg/dL (0-40) Non-HDL Cholesterol Calculated 138 mg/dL (0-129) HDL Cholesterol 40 mg/dL (40-60) Cholesterol/HDL Ratio 4.5 Laboratory Tests Test 07/30/19 04:45 Triglycerides Level 147 mg/dL (0-150) Cholesterol Level 178 mg/dL (0-200) LDL Cholesterol, Calculated 109 mg/dL (0-100) VLDL Cholesterol, Calculated 29 mg/dL (0-40) Non-HDL Cholesterol Calculated 138 mg/dL (0-129) HDL Cholesterol 40 mg/dL (40-60) Cholesterol/HDL Ratio 4.5 Problem List Problems Medical Problems: (1) Altered mental status Status: Acute (2) Fall Status: Acute (3) Old cerebrovascular accident (CVA) without late effect Status: Acute (4) UTI (urinary tract infection) Status: Acute Assessment/Plan Left hemispheric stroke--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 She is due to undergo MRI of the brain today. We will follow-up with the MRI to determine the amount of surface area of brain that has been affected by her stroke. If this is a large amount, we will allow her to heal for at least 6 weeks. 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 There is an opportunity to revascularize the right internal carotid artery but this will depend on the patient's MRI findings as well as clinical course. I suspect we will wait at least 6-8 weeks prior to entertaining this. JOANNE NOGUEIRA DO Jul 30, 2019 13:31
--- NOTE | 2019-07-30 13:51 | PDOC ---
PROGRESS NOTES Assessment Assessment Aphasia on 07/28/19 s/p TPA. Right side weakness. Metabolic encephalopathy. Confusion. HTN. DM. 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 RECOMMENDATIONS/PLAN: TPA administrated on 07/28/19. ASA 325 mg daily. Wait for brain MRI w/o contrast. FU Echo. Statin HS. Consulted Vascular Surgery. History of Present Illness This is an 88-year-old female patient with above medical diseases has not been feeling well in [facility] past 3 days described as tiredness and weakness in one side sometime and other side other times then the entire body. She had a fall at home. EMS was called for altered mental status associated with the fall. However upon further discussion patient has had fall a few days ago with bruising to left side of her head. Patient was initially alert and oriented 3. She follows commands appropriately. NIH of 3 however non-unilateral deficit. While in [facility] ER, she was noted to have new symptoms of aphasia and her NIH score became 6. She was thought to have acute CVA and TPA was offered to her after all criteria were met. Her CTA showed high grade stenosis and occlusion of left ICA. She stated she is doing fine on 07/30/19. Past Medical History Cardiovascular: HTN Pulmonary: No pertinent hx CENTRAL NERVOUS SYSTEM: CVA GI: GERD Heme/Onc: No pertinent hx Hepatobiliary: No pertinent hx Musculoskeletal: Osteoarthritis Rheumatologic: No pertinent hx Infectious disease: No pertinent hx ENT: No pertinent hx Renal/: No pertinent hx, UTI Endocrine: No pertinent hx Dermatology: No pertinent hx Past Surgical History No major surgery recently. Family History Heart Disease ALLERGY: NKDA MEDICATIONS: Refer to [facility] SOCIAL HISTORY: Denies current smoking, drinking, and illicit drug use. REVIEW OF SYSTEMS: Constitutional: No malnutrition, weight loss, cachexia. Head: No traumatic brain or head injury. Skin: No edema, or rash. Ear: No infection, tinnitus. Eyes: No vision loss or color blindness. Nose: No bleeding or purulent discharges. Hearing: Hearing decrease. Neck: No injury. Breast: No history of cancer, masses,or discharges. Cardiac: HTN. Pulmonary: No COPD. GI: GERD. Urinary/genital: UTI. Endocrinologic: Diabetes Mellitus. Skeletomuscular: Generalized weakness. Neurological: see HP. Psychiatric: Denies drug use/abuse. Otherwise, not [id number] review of systems. PHYSICAL EXAMINATION: General appearance is in subacute distress. HEENT: Normocephalic and nontraumatic. Eyes, nose, ears, and throat are unremarkable. Neck is supple. No lymphadenopathy. No crepitus. Cardiovascular: S1, S2, regular rate and rhythm. Pulmonary: mildly decreased to auscultation bilaterally. Abdomen: Bowel sounds are positive. Extremities: No rash, lesions, or edema. Restriction of range of motion in right UE. NEUROLOGICAL EXAMINATION: Drowsiness. Not oriented to time, place but knew person. PERRL. EOMI. CN: Right side VII palsy. Muscle tone: Mildly decreased in right side. Muscle strength: 3-4 right UE and LE. 5- left side. DTR: 1-2 Plantar reflex: Neutral response bilaterally Gait: not able to walk. Sensory exam: She was not able to answer question for exam. Not able to access cerebellar signs. F-T-N test fine left side. Objective Objective Vital Signs Date Time Temp Pulse Resp B/P (MAP) Pulse Ox O2 Delivery O2 Flow Rate FiO2 07/30/19 13:00 78 17 142/57 (85) 94 Room Air 07/30/19 12:00 98.5 98.5 Intake and Output 07/30/19 07:00 Intake Total 0 ml Balance 0 ml Intake Oral 0 ml # Voids 3 Vitals Signs Vitals VS - Last 72 Hours, by Label Date Time Temp Pulse Resp B/P (MAP) Pulse Ox O2 Delivery O2 Flow Rate FiO2 07/30/19 13:00 78 17 142/57 (85) 94 Room Air 07/30/19 12:00 Room Air 07/30/19 12:00 98.5 68 18 141/47 (78) 91 Room Air 98.5 07/30/19 11:00 77 24 146/62 (90) 94 Room Air 07/30/19 10:00 77 24 146/62 (90) 94 Room Air 07/30/19 09:00 86 20 137/70 (92) 95 Room Air 07/30/19 08:00 97.9 97.9 07/30/19 08:00 Room Air 07/30/19 07:59 68 17 142/42 (75) 93 Room Air 07/30/19 07:00 68 14 139/50 (79) 93 Room Air 07/30/19 06:00 71 20 110/60 (77) 93 Room Air 07/30/19 05:00 76 17 136/52 (80) 93 Room Air 07/30/19 04:00 74 18 131/58 (82) 93 Room Air 07/30/19 04:00 Room Air 07/30/19 04:00 98.2 98.2 07/30/19 03:00 72 18 176/51 (92) 93 Room Air 07/30/19 02:00 78 18 134/49 (77) 92 Room Air 07/30/19 01:00 78 20 177/89 (118) 93 Room Air 07/30/19 01:00 69 19 142/6 (51) 93 Room Air 07/30/19 00:00 Room Air 07/30/19 00:00 98.9 69 21 160/48 (85) 92 Room Air 98.9 07/29/19 23:02 72 20 157/57 (90) 92 Room Air 07/29/19 22:00 84 20 133/73 (93) 94 Room Air 07/29/19 21:10 72 23 121/61 (81) 92 Room Air 07/29/19 20:00 Room Air 07/29/19 19:59 97.2 78 21 179/73 (108) 94 Room Air 97.2 07/29/19 19:00 72 23 156/61 (92) 93 Room Air 07/29/19 18:00 74 14 134/89 (104) 94 Room Air 07/29/19 17:00 68 12 146/63 (90) 95 Room Air 07/29/19 16:00 Room Air 07/29/19 16:00 97.0 70 14 135/55 (81) 94 Room Air 97.0 07/29/19 15:00 66 20 124/56 (78) 93 Room Air 07/29/19 14:06 73 178/70 07/29/19 14:00 74 22 178/70 (106) 94 Room Air 07/29/19 13:00 74 22 137/58 (84) 94 Room Air 07/29/19 12:00 97.8 70 18 154/66 (95) 98 Room Air 97.8 07/29/19 12:00 Room Air 07/29/19 11:30 72 18 169/52 (91) 98 Room Air 07/29/19 11:00 80 20 159/73 (101) 98 Room Air 07/29/19 10:30 69 18 94 Room Air 07/29/19 10:00 66 20 143/50 (81) 94 Room Air 07/29/19 09:30 80 20 118/64 (82) 94 Room Air 07/29/19 09:00 66 20 143/50 (81) 94 Room Air 07/29/19 08:30 64 20 117/64 (81) 94 Room Air 07/29/19 08:00 Room Air 07/29/19 08:00 98.5 68 22 140/57 (84) 94 Room Air 98.5 07/29/19 07:30 72 22 135/51 (79) 94 Room Air 07/29/19 07:00 73 22 133/45 (74) 94 Room Air Laboratory Laboratory Laboratory Tests Test 07/30/19 04:45 Triglycerides Level 147 mg/dL (0-150) Cholesterol Level 178 mg/dL (0-200) LDL Cholesterol, Calculated 109 mg/dL (0-100) VLDL Cholesterol, Calculated 29 mg/dL (0-40) Non-HDL Cholesterol Calculated 138 mg/dL (0-129) HDL Cholesterol 40 mg/dL (40-60) Cholesterol/HDL Ratio 4.5 Microbiology 07/29/19 Blood Culture - Preliminary, Resulted NO GROWTH AFTER 1 DAY Medication Medications Current Medications Aspirin (Richard Aspirin) 325 mg DAILYWBKFT PO ; Start 07/30/19 at 08:00 Atorvastatin Calcium (Lipitor) 40 mg QHS PO ; Start 07/30/19 at 21:00 Ceftriaxone Sodium (Rocephin) 1 gm Q24H IVP Last administered on 07/29/19at 20:22; Start 07/29/19 at 19:00; Stop 07/31/19 at 19:01 Simvastatin (Zocor) 20 mg HS PO ; Start 07/29/19 at 21:00; Stop 07/30/19 at 09:12; Status DC Comment Review of Relevant I have reviewed the following items shannan (where applicable) has been applied. JACQUE WINKLER MD Jul 30, 2019 13:51
--- NOTE | 2019-07-30 14:41 | RAD ---
MRI brain without contrast HISTORY: Acute cerebrovascular accident, status post intravenous thrombolytic therapy change in mental status. History of chronic infarcts on CT imaging. History of coronary stenoses and occlusions on CT angiography. COMPARISON: CT head July 28, 2019. FINDINGS: Acute ischemic infarction of the left insula and putamen, frontal operculum, and both the posterior frontal lobe and parietal lobe involving the lower aspects of the pre and post central gyri with diffusion weighted hyperintensity and restricted diffusion. Separately there are several small cortical acute ischemic infarcts of the bilateral anterior cerebral artery territories involving the far posterior parasagittal frontal lobes and parietal lobes. There is a subcentimeter acute infarct at the left globus pallidus likely a lenticular striate carpenter repairer infarcts separate from the putamen and insular carpenter repairer and marked from the middle cerebral artery M1 segment. Separately there are several areas of encephalomalacia from chronic infarcts involving the bilateral occipital lobes, right frontal lobe and right frontal lobe. The intracranial vascular flow voids are intact, including the left internal carotid artery flow void, perhaps indicating some reconstituted blood flow at this segment which was previously thrombosed on CT angiography. No intracranial hemorrhage. No mass. No hydrocephalus. Moderate generalized brain atrophy. IMPRESSION: 1. Left middle cerebral artery territory infarct involving the left basal ganglia, insula and frontal and parietal lobes including the pre and post central gyri. Separately there are several small subcentimeter bilateral cortical based acute ischemic infarcts involving the parasagittal posterior frontal lobes and parietal lobes in the anterior cerebral artery territories. These are likely all related to downstream embolic strokes from the patient's prior occlusive left internal carotid artery thrombus on CT angiography one day ago. 2. The left internal carotid artery vascular flow void is intact and could indicate some reconstituted blood flow since thrombolytic therapy since prior angiographic imaging one day ago. This could be further assessed with dedicated CT or MR angiography. 3. Numerous chronic infarcts as described above. FOR INTERNAL CODING PURPOSES Critical result: Findings discussed with the patient's ICU nurse Eileen at 07/30/2019 2:37 PM. Read back of report was performed. The nurse is calling the treating physician with these results immediately. RESULT CODE: (C) Electronically signed by: Jeremiah Nettles MD (07/30/2019 2:38 PM) [facility]
[2019-07-30] MEDS: ASPIRIN RECTAL 300 MG SUPP. PR SCH (15:37)
[2019-07-30] MEDS: ATORVASTATIN CALCIUM 40 MG TABLET. PO SCH (21:00)
[2019-07-30] MEDS: cefTRIAXone IV Push 1 GM VIAL. IVP SCH (21:28)
[2019-07-31 03:23] VITALS: BP 144/48
[2019-07-31 04:31] LABS: CALCIUM 8.8 mg/dL (8.5-10.1); CREATININE 0.9 mg/dL (0.6-1.0); GFR 59.4; POTASSIUM 3.7 mmol/L (3.5-5.1)
--- NOTE | 2019-07-31 06:16 | EKG ---
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
[2019-07-31 07:00] VITALS: BP 120/55
[2019-07-31] MEDS: PANTOPRAZOLE 40 MG TABLET.DR. PO SCH (07:30)
[2019-07-31] MEDS: CARVEDILOL 6.25 MG TABLET. PO SCH ×2 (08:00→16:42)
[2019-07-31] MEDS: OXYBUTYNIN CHLORIDE 5 MG TABLET PO SCH (08:59)
[2019-07-31] MEDS: PARoxetine 10 MG TABLET PO SCH (09:00)
[2019-07-31] MEDS: ASPIRIN RECTAL 300 MG SUPP. PR SCH (09:03)
[2019-07-31 11:00] VITALS: BP 125/47
--- NOTE | 2019-07-31 11:57 | PDOC ---
PROGRESS NOTES Chief Complaint Chief Complaint Acute CVA - s/p tPA, was admitted to ICU, getting better, . 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 Aphasia improving, Right side weakness. 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 History of Present Illness History of Present Illness IV procalamine cont the rehab modalities, NPO for dysphagia, will consider dobhoff feeds if failure of swallow eval today, should be improve,d r. More interactive last night, tearful, wishing to home with her friends. No pain complaints. Moving extremities better. Following commands. Plan for MRI today, rehab modalities Vitals Vitals Vital Signs Date Time Temp Pulse Resp B/P (MAP) Pulse Ox O2 Delivery O2 Flow Rate FiO2 07/31/19 11:00 98.3 72 16 125/47 (73) 93 Room Air 98.3 Physical Exam General: Alert, Cooperative, No acute distress Heart: Normal S1, Normal S2 Lungs: Clear Abdomen: Normal bowel sounds, Soft, No tenderness Extremities: No clubbing, No cyanosis, No edema, Normal pulses, No tenderness/swelling Skin: No rashes, No breakdown, No significant lesion Labs LABS Laboratory Tests Test 07/31/19 03:40 Sodium Level 146 mmol/L (136-145) Potassium Level 3.7 mmol/L (3.5-5.1) Chloride Level 107 mmol/L (98-107) Carbon Dioxide Level 25 mmol/L (21-32) Anion Gap 14 (6-14) Blood Urea Nitrogen 28 mg/dL (7-20) Creatinine 0.9 mg/dL (0.6-1.0) Estimated GFR (Cockcroft-Gault) 59.4 Glucose Level 125 mg/dL (70-99) Calcium Level 8.8 mg/dL (8.5-10.1) Assessment and Plan Assessmemt and Plan Problems Medical Problems: (1) Altered mental status Status: Acute (2) Fall Status: Acute (3) Old cerebrovascular accident (CVA) without late effect Status: Acute (4) UTI (urinary tract infection) Status: Acute Comment Review of Relevant I have reviewed the following items shannan (where applicable) has been applied. Labs Laboratory Tests Test 07/29/19 13:25 07/30/19 04:45 07/31/19 03:40 Cholesterol Level 186 mg/dL (0-200) 178 mg/dL (0-200) Triglycerides Level 147 mg/dL (0-150) LDL Cholesterol, Calculated 109 mg/dL (0-100) VLDL Cholesterol, Calculated 29 mg/dL (0-40) Non-HDL Cholesterol Calculated 138 mg/dL (0-129) HDL Cholesterol 40 mg/dL (40-60) Cholesterol/HDL Ratio 4.5 Sodium Level 146 mmol/L (136-145) Potassium Level 3.7 mmol/L (3.5-5.1) Chloride Level 107 mmol/L (98-107) Carbon Dioxide Level 25 mmol/L (21-32) Anion Gap 14 (6-14) Blood Urea Nitrogen 28 mg/dL (7-20) Creatinine 0.9 mg/dL (0.6-1.0) Estimated GFR (Cockcroft-Gault) 59.4 Glucose Level 125 mg/dL (70-99) Calcium Level 8.8 mg/dL (8.5-10.1) Laboratory Tests Test 07/31/19 03:40 Sodium Level 146 mmol/L (136-145) Potassium Level 3.7 mmol/L (3.5-5.1) Chloride Level 107 mmol/L (98-107) Carbon Dioxide Level 25 mmol/L (21-32) Anion Gap 14 (6-14) Blood Urea Nitrogen 28 mg/dL (7-20) Creatinine 0.9 mg/dL (0.6-1.0) Estimated GFR (Cockcroft-Gault) 59.4 Glucose Level 125 mg/dL (70-99) Calcium Level 8.8 mg/dL (8.5-10.1) Microbiology 07/29/19 Blood Culture - Preliminary, Resulted NO GROWTH AFTER 2 DAYS Medications Current Medications Ketorolac Tromethamine (Toradol 30mg Vial) 30 mg 1X ONCE IV Last administered on 07/28/19at 23:38; Start 07/28/19 at 23:30; Stop 07/28/19 at 23:31; Status DC Ceftriaxone Sodium (Rocephin) 1 gm 1X ONCE IVP Last administered on 07/29/19at 00:53; Start 07/28/19 at 23:45; Stop 07/28/19 at 23:46; Status DC Ondansetron HCl (Zofran) 4 mg PRN Q8HRS PRN IV NAUSEA/VOMITING; Start 07/29/19 at 00:00; Stop 07/29/19 at 08:42; Status DC Acetaminophen (Tylenol) 650 mg PRN Q4HRS PRN PO FEVER; Start 07/29/19 at 00:00; Stop 07/29/19 at 08:42; Status DC Alteplase, Recombinant 0 ml @ 0 mls/hr 1X ONCE IV ; Start 07/29/19 at 00:45; Stop 07/29/19 at 00:46; Status UNV Alteplase, Recombinant 0 ml @ 0 mls/hr Q1H IV ; Start 07/29/19 at 00:45; Stop 07/29/19 at 00:46; Status UNV Sodium Chloride 50 ml @ 0 mls/hr 1X ONCE IV ; Start 07/29/19 at 00:45; Stop 07/29/19 at 00:46; Status UNV Labetalol HCl (Normodyne Iv Push) 10 mg PRN Q10MIN PRN IVP HYPERTENSION; Start 07/29/19 at 00:45; Status UNV Nicardipine HCl 50 mg/Sodium Chloride 250 ml @ 25 mls/hr CONT PRN PRN IV HYPERTENSION; Start 07/29/19 at 00:45; Status UNV Labetalol HCl (Normodyne Iv Push) 10 mg PRN Q10MIN PRN IVP HYPERTENSION Last administered on 07/29/19at 14:06; Start 07/29/19 at 00:45 Nicardipine HCl 50 mg/Sodium Chloride 250 ml @ 25 mls/hr CONT PRN PRN IV HYPERTENSION; Start 07/29/19 at 00:45 Acetaminophen (Tylenol) 650 mg PRN Q6HRS PRN PO MILD PAIN / TEMP; Start 07/29/19 at 00:45 Acetaminophen (Tylenol Supp) 325 mg PRN Q6HRS PRN LA MILD PAIN / TEMP; Start 07/29/19 at 00:45 Ondansetron HCl (Zofran) 4 mg PRN Q6HRS PRN IV NAUSEA/VOMITING; Start 07/29/19 at 00:45 Alteplase, Recombinant 5.7 ml @ 342 mls/hr 1X ONCE IV Last administered on 07/29/19at 01:00; Start 07/29/19 at 01:00; Stop 07/29/19 at 01:01; Status DC Alteplase, Recombinant 51 ml @ 51 mls/hr Q1H IV Last administered on 07/29/19at 01:08; Start 07/29/19 at 01:00; Stop 07/29/19 at 01:59; Status DC Sodium Chloride 50 ml @ 200 mls/hr 1X ONCE IV Last administered on 07/29/19at 01:04; Start 07/29/19 at 01:00; Stop 07/29/19 at 01:14; Status DC Iohexol (Omnipaque 300 Mg/ml) 50 ml 1X ONCE IV Last administered on 07/29/19at 01:34; Start 07/29/19 at 01:15; Stop 07/29/19 at 01:16; Status DC Info (CONTRAST GIVEN -- Rx MONITORING) 1 each PRN DAILY PRN MC SEE COMMENTS; Start 07/29/19 at 01:15; Stop 07/31/19 at 01:14; Status DC Carvedilol (Coreg) 6.25 mg BIDWMEALS PO ; Start 07/29/19 at 09:00 Paroxetine HCl (Paxil) 10 mg DAILY PO ; Start 07/29/19 at 09:00 Pantoprazole Sodium (Protonix) 40 mg DAILYAC PO ; Start 07/29/19 at 09:00 Oxybutynin Chloride (Ditropan) 5 mg DAILY PO ; Start 07/29/19 at 09:00 Ceftriaxone Sodium (Rocephin) 1 gm Q24H IVP Last administered on 07/30/19at 21:28; Start 07/29/19 at 19:00; Stop 07/31/19 at 19:01 Simvastatin (Zocor) 20 mg HS PO ; Start 07/29/19 at 21:00; Stop 07/30/19 at 09:12; Status DC Aspirin (Richard Aspirin) 325 mg DAILYWBKFT PO ; Start 07/30/19 at 08:00; Stop 07/30/19 at 15:13; Status DC Atorvastatin Calcium (Lipitor) 40 mg QHS PO ; Start 07/30/19 at 21:00 Aspirin (Aspirin Rectal Supp) 300 mg DAILY LA Last administered on 07/31/19at 09:03; Start 07/30/19 at 15:30 Active Scripts Active Culturelle (Lactobacillus Rhamnosus Gg) 1 Each Cap.sprink 1 Cap PO BID 14 Days Levofloxacin 250 Mg Tablet 250 Mg PO DAILY06 7 Days Reported Tramadol Hcl 50 Mg Tablet 50 Mg PO Q6HRS PRN Ranitidine Hcl 150 Mg Capsule 150 Mg PO BID Paroxetine Hcl 10 Mg Tablet 10 Mg PO DAILY Oxybutynin Chloride Er (Oxybutynin Chloride) 5 Mg Tab.er.24 1 Tab PO DAILY Prilosec Otc (Omeprazole Magnesium) 20 Mg Tablet.dr 2 Tab PO DAILY Meloxicam 7.5 Mg Tablet 1 Tab PO DAILY Carvedilol (Carvedilol) 6.25 Mg Tablet 6.25 Mg PO BIDWMEALS Vitals/I & O Vital Sign - Last 24 Hours 07/30/19 07/30/19 07/30/19 07/30/19 12:00 12:00 13:00 14:00 Temp 98.5 98.5 Pulse 68 78 74 Resp 18 17 17 B/P (MAP) 141/47 (78) 142/57 (85) 160/58 (92) Pulse Ox 91 94 93 O2 Delivery Room Air Room Air Room Air Room Air 07/30/19 07/30/19 07/30/19 07/30/19 15:00 16:00 16:00 19:05 Temp 98.0 99.3 98.0 99.3 Pulse 73 69 80 Resp 19 18 16 B/P (MAP) 149/54 (85) 146/66 (92) 122/56 (78) Pulse Ox 93 94 94 O2 Delivery Room Air Room Air Room Air Room Air 07/30/19 07/30/19 07/31/19 07/31/19 20:00 23:05 03:23 07:00 Temp 99.1 97.9 97.4 99.1 97.9 97.4 Pulse 79 67 77 Resp 16 16 16 B/P (MAP) 120/48 (72) 144/48 (80) 120/55 (76) Pulse Ox 92 92 93 O2 Delivery Room Air Room Air Room Air Room Air 07/31/19 07/31/19 08:00 11:00 Temp 98.3 98.3 Pulse 77 72 Resp 16 B/P (MAP) 120/55 125/47 (73) Pulse Ox 93 O2 Delivery Room Air Intake and Output 07/30/19 07/30/19 07/31/19 15:00 23:00 07:00 Intake Total 0 ml 0 ml Balance 0 ml 0 ml ERNESTO URBAN MD Jul 31, 2019 11:57
--- NOTE | 2019-07-31 12:15 | PDOC ---
PROGRESS NOTES Subjective Subjective "Nice to meet you too." Objective Objective Vascular Surgery Follow Up: General: examined at the bedside as patient is on bedrest. Neuro: Awake and alert. Oriented to name and location. Attempting to verbalize and can understand some comments. Appears to possibly have some level of expressive aphasia but yet to be determined. Seems to understand and able to follow simple commands appropriately. Able to move both legs today with seemingly equal strength although weak. Able to elevate right right arm off the pillow to mid-shoulder height. Poor grasp strength. Strong left arm grasp and able to elevate arm above shoulder. Left lip droop. Unable to assess if tongue is midline as mouth is very dry. Neck: No bruit auscultated. CV: RRR. Vital signs stable. No murmur appreciated. Resp: Bilaterally clear. Unlabored. No cough. Abd: Soft. +sounds. Remains NPO status MRI Head and Neck: FINDINGS: Acute ischemic infarction of the left insula and putamen, frontal operculum, and both the posterior frontal lobe and parietal lobe involving the lower aspects of the pre and post central gyri with diffusion weighted hyperintensity and restricted diffusion. Separately there are several small cortical acute ischemic infarcts of the bilateral anterior cerebral artery territories involving the far posterior parasagittal frontal lobes and parietal lobes. There is a subcentimeter acute infarct at the left globus pallidus likely a lenticular striate brisket puller infarcts separate from the putamen and insular brisket puller and marked from the middle cerebral artery M1 segment. Separately there are several areas of encephalomalacia from chronic infarcts involving the bilateral occipital lobes, right frontal lobe and right frontal lobe. The intracranial vascular flow voids are intact, including the left internal carotid artery flow void, perhaps indicating some reconstituted blood flow at this segment which was previously thrombosed on CT angiography. No intracranial hemorrhage. No mass. No hydrocephalus. Moderate generalized brain atrophy. IMPRESSION: 1. Left middle cerebral artery territory infarct involving the left basal ganglia, insula and frontal and parietal lobes including the pre and post central gyri. Separately there are several small subcentimeter bilateral cortical based acute ischemic infarcts involving the parasagittal posterior frontal lobes and parietal lobes in the anterior cerebral artery territories. These are likely all related to downstream embolic strokes from the patient's prior occlusive left internal carotid artery thrombus on CT angiography one day ago. 2. The left internal carotid artery vascular flow void is intact and could indicate some reconstituted blood flow since thrombolytic therapy since prior angiographic imaging one day ago. This could be further assessed with dedicated CT or MR angiography. 3. Numerous chronic infarcts as described above. Assessment/Plan: 88yo female with bilateral middle cerebral distribution CVA. 1. 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 The right internal carotid artery is occluded at its origin and reconstitutes in the distal portion of the internal carotid artery at the C2 level. JANAE of the brain results have been reviewed. There are several small cortical acute ischemic infarcts of the bilateral anterior cerebral artery territories involving the far posterior parasagittal frontal lobes and parietal lobes. There is a subcentimeter acute infarct at the left globus pallidus likely a lenticular striate brisket puller infarcts separate from the putamen and insular brisket puller and marked from the middle cerebral artery M1 segment. These areas were not noted on CT of the head upon presentation. Will await Neurology evaluation and interpretation of MRI results. I have shared the MRI results with Dr. Sierra and he recommendations waiting on carotid endarterectomy at this time and patient to have time for stroke recovery. We will schedule her to return to the office in 6-8 weeks and have a bilateral carotid duplex performed. MRI now suggesting possible reconstituted blood flow within the left internal carotid artery vascular region that appeared to be thrombosed on CT angiography. No family is present at the time of my examination. 2. Continue on antiplatelet therapy upon discharge. Aspirin is appropriate. 3. Hypertension. Stable on current therapy. Avoid hypotension in this acute phase. Vital Signs Date Time Temp Pulse Resp B/P (MAP) Pulse Ox O2 Delivery O2 Flow Rate FiO2 07/31/19 11:00 98.3 72 16 125/47 (73) 93 Room Air 98.3 Intake and Output 07/31/19 07:00 Intake Total 0 ml Balance 0 ml Intake Oral 0 ml # Voids 3 Assessment Assessment Problems Medical Problems: (1) Altered mental status Status: Acute (2) Fall Status: Acute (3) Old cerebrovascular accident (CVA) without late effect Status: Acute (4) UTI (urinary tract infection) Status: Acute Comment Review of Relevant I have reviewed the following items shannan (where applicable) has been applied. Labs Laboratory Tests Test 07/29/19 13:25 07/30/19 04:45 07/31/19 03:40 Cholesterol Level 186 mg/dL (0-200) 178 mg/dL (0-200) Triglycerides Level 147 mg/dL (0-150) LDL Cholesterol, Calculated 109 mg/dL (0-100) VLDL Cholesterol, Calculated 29 mg/dL (0-40) Non-HDL Cholesterol Calculated 138 mg/dL (0-129) HDL Cholesterol 40 mg/dL (40-60) Cholesterol/HDL Ratio 4.5 Sodium Level 146 mmol/L (136-145) Potassium Level 3.7 mmol/L (3.5-5.1) Chloride Level 107 mmol/L (98-107) Carbon Dioxide Level 25 mmol/L (21-32) Anion Gap 14 (6-14) Blood Urea Nitrogen 28 mg/dL (7-20) Creatinine 0.9 mg/dL (0.6-1.0) Estimated GFR (Cockcroft-Gault) 59.4 Glucose Level 125 mg/dL (70-99) Calcium Level 8.8 mg/dL (8.5-10.1) Laboratory Tests Test 07/31/19 03:40 Sodium Level 146 mmol/L (136-145) Potassium Level 3.7 mmol/L (3.5-5.1) Chloride Level 107 mmol/L (98-107) Carbon Dioxide Level 25 mmol/L (21-32) Anion Gap 14 (6-14) Blood Urea Nitrogen 28 mg/dL (7-20) Creatinine 0.9 mg/dL (0.6-1.0) Estimated GFR (Cockcroft-Gault) 59.4 Glucose Level 125 mg/dL (70-99) Calcium Level 8.8 mg/dL (8.5-10.1) Microbiology 07/29/19 Blood Culture - Preliminary, Resulted NO GROWTH AFTER 2 DAYS Medications Current Medications Ketorolac Tromethamine (Toradol 30mg Vial) 30 mg 1X ONCE IV Last administered on 07/28/19at 23:38; Start 07/28/19 at 23:30; Stop 07/28/19 at 23:31; Status DC Ceftriaxone Sodium (Rocephin) 1 gm 1X ONCE IVP Last administered on 07/29/19at 00:53; Start 07/28/19 at 23:45; Stop 07/28/19 at 23:46; Status DC Ondansetron HCl (Zofran) 4 mg PRN Q8HRS PRN IV NAUSEA/VOMITING; Start 07/29/19 at 00:00; Stop 07/29/19 at 08:42; Status DC Acetaminophen (Tylenol) 650 mg PRN Q4HRS PRN PO FEVER; Start 07/29/19 at 00:00; Stop 07/29/19 at 08:42; Status DC Alteplase, Recombinant 0 ml @ 0 mls/hr 1X ONCE IV ; Start 07/29/19 at 00:45; Stop 07/29/19 at 00:46; Status UNV Alteplase, Recombinant 0 ml @ 0 mls/hr Q1H IV ; Start 07/29/19 at 00:45; Stop 07/29/19 at 00:46; Status UNV Sodium Chloride 50 ml @ 0 mls/hr 1X ONCE IV ; Start 07/29/19 at 00:45; Stop 07/29/19 at 00:46; Status UNV Labetalol HCl (Normodyne Iv Push) 10 mg PRN Q10MIN PRN IVP HYPERTENSION; Start 07/29/19 at 00:45; Status UNV Nicardipine HCl 50 mg/Sodium Chloride 250 ml @ 25 mls/hr CONT PRN PRN IV HYPERTENSION; Start 07/29/19 at 00:45; Status UNV Labetalol HCl (Normodyne Iv Push) 10 mg PRN Q10MIN PRN IVP HYPERTENSION Last administered on 07/29/19at 14:06; Start 07/29/19 at 00:45 Nicardipine HCl 50 mg/Sodium Chloride 250 ml @ 25 mls/hr CONT PRN PRN IV HYPERTENSION; Start 07/29/19 at 00:45 Acetaminophen (Tylenol) 650 mg PRN Q6HRS PRN PO MILD PAIN / TEMP; Start 07/29/19 at 00:45 Acetaminophen (Tylenol Supp) 325 mg PRN Q6HRS PRN [place] MILD PAIN / TEMP; Start 07/29/19 at 00:45 Ondansetron HCl (Zofran) 4 mg PRN Q6HRS PRN IV NAUSEA/VOMITING; Start 07/29/19 at 00:45 Alteplase, Recombinant 5.7 ml @ 342 mls/hr 1X ONCE IV Last administered on 07/29/19at 01:00; Start 07/29/19 at 01:00; Stop 07/29/19 at 01:01; Status DC Alteplase, Recombinant 51 ml @ 51 mls/hr Q1H IV Last administered on 07/29/19at 01:08; Start 07/29/19 at 01:00; Stop 07/29/19 at 01:59; Status DC Sodium Chloride 50 ml @ 200 mls/hr 1X ONCE IV Last administered on 07/29/19at 01:04; Start 07/29/19 at 01:00; Stop 07/29/19 at 01:14; Status DC Iohexol (Omnipaque 300 Mg/ml) 50 ml 1X ONCE IV Last administered on 07/29/19at 01:34; Start 07/29/19 at 01:15; Stop 07/29/19 at 01:16; Status DC Info (CONTRAST GIVEN -- Rx MONITORING) 1 each PRN DAILY PRN MC SEE COMMENTS; Start 07/29/19 at 01:15; Stop 07/31/19 at 01:14; Status DC Carvedilol (Coreg) 6.25 mg BIDWMEALS PO ; Start 07/29/19 at 09:00 Paroxetine HCl (Paxil) 10 mg DAILY PO ; Start 07/29/19 at 09:00 Pantoprazole Sodium (Protonix) 40 mg DAILYAC PO ; Start 07/29/19 at 09:00 Oxybutynin Chloride (Ditropan) 5 mg DAILY PO ; Start 07/29/19 at 09:00 Ceftriaxone Sodium (Rocephin) 1 gm Q24H IVP Last administered on 07/30/19at 21:28; Start 07/29/19 at 19:00; Stop 07/31/19 at 19:01 Simvastatin (Zocor) 20 mg HS PO ; Start 07/29/19 at 21:00; Stop 07/30/19 at 09:12; Status DC Aspirin (Richard Aspirin) 325 mg DAILYWBKFT PO ; Start 07/30/19 at 08:00; Stop 07/30/19 at 15:13; Status DC Atorvastatin Calcium (Lipitor) 40 mg QHS PO ; Start 07/30/19 at 21:00 Aspirin (Aspirin Rectal Supp) 300 mg DAILY [place] Last administered on 07/31/19at 09:03; Start 07/30/19 at 15:30 Active Scripts Active Culturelle (Lactobacillus Rhamnosus Gg) 1 Each Cap.sprink 1 Cap PO BID 14 Days Levofloxacin 250 Mg Tablet 250 Mg PO DAILY06 7 Days Reported Tramadol Hcl 50 Mg Tablet 50 Mg PO Q6HRS PRN Ranitidine Hcl 150 Mg Capsule 150 Mg PO BID Paroxetine Hcl 10 Mg Tablet 10 Mg PO DAILY Oxybutynin Chloride Er (Oxybutynin Chloride) 5 Mg Tab.er.24 1 Tab PO DAILY Prilosec Otc (Omeprazole Magnesium) 20 Mg Tablet.dr 2 Tab PO DAILY Meloxicam 7.5 Mg Tablet 1 Tab PO DAILY Carvedilol (Carvedilol) 6.25 Mg Tablet 6.25 Mg PO BIDWMEALS Vitals/I & O Vital Sign - Last 24 Hours 07/30/19 07/30/19 07/30/19 07/30/19 12:00 12:00 13:00 14:00 Temp 98.5 98.5 Pulse 68 78 74 Resp 18 17 17 B/P (MAP) 141/47 (78) 142/57 (85) 160/58 (92) Pulse Ox 91 94 93 O2 Delivery Room Air Room Air Room Air Room Air 07/30/19 07/30/19 07/30/19 07/30/19 15:00 16:00 16:00 19:05 Temp 98.0 99.3 98.0 99.3 Pulse 73 69 80 Resp 19 18 16 B/P (MAP) 149/54 (85) 146/66 (92) 122/56 (78) Pulse Ox 93 94 94 O2 Delivery Room Air Room Air Room Air Room Air 07/30/19 07/30/19 07/31/19 07/31/19 20:00 23:05 03:23 07:00 Temp 99.1 97.9 97.4 99.1 97.9 97.4 Pulse 79 67 77 Resp 16 16 16 B/P (MAP) 120/48 (72) 144/48 (80) 120/55 (76) Pulse Ox 92 92 93 O2 Delivery Room Air Room Air Room Air Room Air 07/31/19 07/31/19 08:00 11:00 Temp 98.3 98.3 Pulse 77 72 Resp 16 B/P (MAP) 120/55 125/47 (73) Pulse Ox 93 O2 Delivery Room Air Intake and Output 07/30/19 07/30/19 07/31/19 15:00 23:00 07:00 Intake Total 0 ml 0 ml Balance 0 ml 0 ml BENITA KYLE APRN Jul 31, 2019 12:15
[2019-07-31] MEDS: AMINO AC 3%/ELECTROLYTE/GLYCER 1,000 ML IV SCH (12:43)
[2019-07-31 15:00] VITALS: BP 122/47
--- NOTE | 2019-07-31 16:37 | PDOC ---
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 Acute several small subcentimeter bilateral cortical based acute ischemic infarcts involving the parasagittal posterior frontal lobes and parietal lobes in the anterior cerebral artery territories. Aphasia on 07/28/19 s/p TPA. Right side weakness. Metabolic encephalopathy. Confusion. HTN. DM. 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 RECOMMENDATIONS/PLAN: TPA administrated on 07/28/19. ASA 325 mg daily, changed to 300 mg rectal due to not able to swallow. Statin HS. Consulted Vascular Surgery. History of Present Illness This is an 88-year-old female patient with above medical diseases has not been feeling well in [facility] past 3 days described as tiredness and weakness in one side sometime and other side other times then the entire body. She had a fall at home. EMS was called for altered mental status associated with the fall. However upon further discussion patient has had fall a few days ago with bruising to left side of her head. Patient was initially alert and oriented 3. She follows commands appropriately. NIH of 3 however non-unilateral deficit. While in [facility] ER, she was noted to have new symptoms of aphasia and her NIH score became 6. She was thought to have acute CVA and TPA was offered to her after all criteria were met. Her CTA showed high grade stenosis and occlusion of left ICA. She stated she is doing fine on 07/31/19. Past Medical History Cardiovascular: HTN Pulmonary: No pertinent hx CENTRAL NERVOUS SYSTEM: CVA GI: GERD Heme/Onc: No pertinent hx Hepatobiliary: No pertinent hx Musculoskeletal: Osteoarthritis Rheumatologic: No pertinent hx Infectious disease: No pertinent hx ENT: No pertinent hx Renal/: No pertinent hx, UTI Endocrine: No pertinent hx Dermatology: No pertinent hx Past Surgical History No major surgery recently. Family History Heart Disease ALLERGY: NKDA MEDICATIONS: Refer to MAR SOCIAL HISTORY: Denies current smoking, drinking, and illicit drug use. REVIEW OF SYSTEMS: Constitutional: No malnutrition, weight loss, cachexia. Head: No traumatic brain or head injury. Skin: No edema, or rash. Ear: No infection, tinnitus. Eyes: No vision loss or color blindness. Nose: No bleeding or purulent discharges. Hearing: Hearing decrease. Neck: No injury. Breast: No history of cancer, masses,or discharges. Cardiac: HTN. Pulmonary: No COPD. GI: GERD. Urinary/genital: UTI. Endocrinologic: Diabetes Mellitus. Skeletomuscular: Generalized weakness. Neurological: see HP. Psychiatric: Denies drug use/abuse. Otherwise, not [id number] review of systems. PHYSICAL EXAMINATION: General appearance is in subacute distress. HEENT: Normocephalic and nontraumatic. Eyes, nose, ears, and throat are unremarkable. Neck is supple. No lymphadenopathy. No crepitus. Cardiovascular: S1, S2, regular rate and rhythm. Pulmonary: mildly decreased to auscultation bilaterally. Abdomen: Bowel sounds are positive. Extremities: No rash, lesions, or edema. Restriction of range of motion in right UE. NEUROLOGICAL EXAMINATION: Drowsiness. Not oriented to time, place but knew person. PERRL. EOMI. CN: Right side VII palsy. Muscle tone: Mildly decreased in right side. Muscle strength: 3-4 right UE and LE. 5- left side. DTR: 1-2 Plantar reflex: Neutral response bilaterally Gait: not able to walk. Sensory exam: She was not able to answer question for exam. No other acute cerebellar signs. F-T-N test fine left side. Objective Objective Vital Signs Date Time Temp Pulse Resp B/P (MAP) Pulse Ox O2 Delivery O2 Flow Rate FiO2 07/31/19 15:00 97.9 75 16 122/47 (72) 92 Room Air 97.9 Intake and Output 07/31/19 07:00 Intake Total 0 ml Balance 0 ml Intake Oral 0 ml # Voids 3 Vitals Signs Vitals VS - Last 72 Hours, by Label Date Time Temp Pulse Resp B/P (MAP) Pulse Ox O2 Delivery O2 Flow Rate FiO2 07/31/19 15:00 97.9 75 16 122/47 (72) 92 Room Air 97.9 07/31/19 11:00 98.3 72 16 125/47 (73) 93 Room Air 98.3 07/31/19 08:00 Room Air 07/31/19 08:00 77 120/55 07/31/19 07:00 97.4 77 16 120/55 (76) 93 Room Air 97.4 07/31/19 03:23 97.9 67 16 144/48 (80) 92 Room Air 97.9 07/30/19 23:05 99.1 79 16 120/48 (72) 92 Room Air 99.1 07/30/19 20:00 Room Air 07/30/19 19:05 99.3 80 16 122/56 (78) 94 Room Air 99.3 07/30/19 16:00 98.0 69 18 146/66 (92) 94 Room Air 98.0 07/30/19 16:00 Room Air 07/30/19 15:00 73 19 149/54 (85) 93 Room Air 07/30/19 14:00 74 17 160/58 (92) 93 Room Air 07/30/19 13:00 78 17 142/57 (85) 94 Room Air 07/30/19 12:00 Room Air 07/30/19 12:00 98.5 68 18 141/47 (78) 91 Room Air 98.5 07/30/19 11:00 77 24 146/62 (90) 94 Room Air 07/30/19 10:00 77 24 146/62 (90) 94 Room Air 07/30/19 09:00 86 20 137/70 (92) 95 Room Air 07/30/19 08:00 97.9 97.9 07/30/19 08:00 Room Air 07/30/19 07:59 68 17 142/42 (75) 93 Room Air 07/30/19 07:00 68 14 139/50 (79) 93 Room Air Laboratory Laboratory Laboratory Tests Test 07/31/19 03:40 Sodium Level 146 mmol/L (136-145) Potassium Level 3.7 mmol/L (3.5-5.1) Chloride Level 107 mmol/L (98-107) Carbon Dioxide Level 25 mmol/L (21-32) Anion Gap 14 (6-14) Blood Urea Nitrogen 28 mg/dL (7-20) Creatinine 0.9 mg/dL (0.6-1.0) Estimated GFR (Cockcroft-Gault) 59.4 Glucose Level 125 mg/dL (70-99) Calcium Level 8.8 mg/dL (8.5-10.1) Microbiology 07/29/19 Blood Culture - Preliminary, Resulted NO GROWTH AFTER 2 DAYS Medication Medications Current Medications Amino Acids/ Glycerin/ Electrolytes 1,000 ml @ 80 mls/hr [id number] IV Last administered on 07/31/19at 12:43; Start 07/31/19 at 13:00 Atorvastatin Calcium (Lipitor) 40 mg QHS PO ; Start 07/30/19 at 21:00 Comment Review of Relevant I have reviewed the following items shannan (where applicable) has been applied. JACQUE WINKLER MD Jul 31, 2019 16:37
[2019-07-31 19:04] VITALS: BP 107/46
[2019-07-31] MEDS: ATORVASTATIN CALCIUM 40 MG TABLET. PO SCH (20:34)
[2019-07-31] MEDS: cefTRIAXone IV Push 1 GM VIAL. IVP SCH (22:06)
[2019-07-31 23:53] VITALS: BP 140/59
[2019-08-01] MEDS: AMINO AC 3%/ELECTROLYTE/GLYCER 1,000 ML IV SCH ×2 (01:30→16:10)
[2019-08-01 03:04] VITALS: BP 133/49
[2019-08-01 07:00] VITALS: BP 113/36
[2019-08-01] MEDS: PANTOPRAZOLE 40 MG TABLET.DR. PO SCH (07:30)
[2019-08-01] MEDS: CARVEDILOL 6.25 MG TABLET. PO SCH ×2 (08:00→17:23)
[2019-08-01] MEDS: PARoxetine 10 MG TABLET PO SCH (09:00)
[2019-08-01] MEDS: OXYBUTYNIN CHLORIDE 5 MG TABLET PO SCH (09:00)
--- NOTE | 2019-08-01 09:13 | PDOC ---
PROGRESS NOTES Subjective Subjective Patient seen and examined in room. Denies any complaints, Minimal response to questions. Objective Objective Vital Signs Date Time Temp Pulse Resp B/P (MAP) Pulse Ox O2 Delivery O2 Flow Rate FiO2 08/01/19 07:00 98.1 59 20 113/36 (61) 94 Room Air 98.1 Intake and Output 08/01/19 07:00 Intake Total 0 ml Balance 0 ml Intake Oral 0 ml # Voids 4 Physical Exam Physical Exam General: Awake and alert to person, VSS, afebrile CV: HRR Lungs: Non-labored respirations Abdomen: Soft, NTND Neurological: Awake and alert to person. Only verbalizes "yes" to questions. Moves all extremities, but weak. Physician poor strength but equal. Left facial droop. Assessment Assessment Problems Medical Problems: (1) Acute CVA (cerebrovascular accident) Status: Acute (2) Acute encephalopathy Status: Acute (3) CLAY (acute kidney injury) Status: Acute (4) Altered mental status Status: Acute (5) Aphasia Status: Acute (6) Confusion Status: Chronic (7) DM (diabetes mellitus) Status: Chronic (8) Fall Status: Acute (9) HTN (hypertension) Status: Chronic (10) Metabolic encephalopathy Status: Acute (11) Occlusion of left internal carotid artery Status: Acute (12) Old cerebrovascular accident (CVA) without late effect Status: Acute (13) Right sided weakness Status: Acute (14) UTI (urinary tract infection) Status: Acute Plan Plan of Care 88yo female with bilateral middle cerebral distribution CVA. 1. 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 The right internal carotid artery is occluded at its origin and reconstitutes in the distal portion of the internal carotid artery at the C2 level. JANAE of the brain results have been reviewed. There are several small cortical acute ischemic infarcts of the bilateral anterior cerebral artery territories involving the far posterior parasagittal frontal lobes and parietal lobes. There is a subcentimeter acute infarct at the left globus pallidus likely a lenticular striate hand profiler infarcts separate from the putamen and insular hand profiler and marked from the middle cerebral artery M1 segment. These areas were not noted on CT of the head upon presentation. Will await Neurology evaluation and interpretation of MRI results. Recommend waiting on carotid endarterectomy at this time and patient to have time for stroke recovery. Patient has been scheduled in or office on 09/11/2019 11:10 to have a bilateral carotid duplex performed. MRI now suggesting possible reconstituted blood flow within the left internal carotid artery vascular region that appeared to be thrombosed on CT angiography. No family is present at the time of my examination. 2. Continue on antiplatelet therapy upon discharge. Aspirin is appropriate. 3. Hypertension. Stable on current therapy. Avoid hypotension in this acute phase. Comment Review of Relevant I have reviewed the following items shannan (where applicable) has been applied. Labs Laboratory Tests Test 07/31/19 03:40 Sodium Level 146 mmol/L (136-145) Potassium Level 3.7 mmol/L (3.5-5.1) Chloride Level 107 mmol/L (98-107) Carbon Dioxide Level 25 mmol/L (21-32) Anion Gap 14 (6-14) Blood Urea Nitrogen 28 mg/dL (7-20) Creatinine 0.9 mg/dL (0.6-1.0) Estimated GFR (Cockcroft-Gault) 59.4 Glucose Level 125 mg/dL (70-99) Calcium Level 8.8 mg/dL (8.5-10.1) Microbiology 07/29/19 Blood Culture - Preliminary, Resulted NO GROWTH AFTER 3 DAYS Medications Current Medications Ketorolac Tromethamine (Toradol 30mg Vial) 30 mg 1X ONCE IV Last administered on 07/28/19at 23:38; Start 07/28/19 at 23:30; Stop 07/28/19 at 23:31; Status DC Ceftriaxone Sodium (Rocephin) 1 gm 1X ONCE IVP Last administered on 07/29/19at 00:53; Start 07/28/19 at 23:45; Stop 07/28/19 at 23:46; Status DC Ondansetron HCl (Zofran) 4 mg PRN Q8HRS PRN IV NAUSEA/VOMITING; Start 07/29/19 at 00:00; Stop 07/29/19 at 08:42; Status DC Acetaminophen (Tylenol) 650 mg PRN Q4HRS PRN PO FEVER; Start 07/29/19 at 00:00; Stop 07/29/19 at 08:42; Status DC Alteplase, Recombinant 0 ml @ 0 mls/hr 1X ONCE IV ; Start 07/29/19 at 00:45; Stop 07/29/19 at 00:46; Status UNV Alteplase, Recombinant 0 ml @ 0 mls/hr Q1H IV ; Start 07/29/19 at 00:45; Stop 07/29/19 at 00:46; Status UNV Sodium Chloride 50 ml @ 0 mls/hr 1X ONCE IV ; Start 07/29/19 at 00:45; Stop 07/29/19 at 00:46; Status UNV Labetalol HCl (Normodyne Iv Push) 10 mg PRN Q10MIN PRN IVP HYPERTENSION; Start 07/29/19 at 00:45; Status UNV Nicardipine HCl 50 mg/Sodium Chloride 250 ml @ 25 mls/hr CONT PRN PRN IV HYPERTENSION; Start 07/29/19 at 00:45; Status UNV Labetalol HCl (Normodyne Iv Push) 10 mg PRN Q10MIN PRN IVP HYPERTENSION Last administered on 07/29/19at 14:06; Start 07/29/19 at 00:45 Nicardipine HCl 50 mg/Sodium Chloride 250 ml @ 25 mls/hr CONT PRN PRN IV HYPERTENSION; Start 07/29/19 at 00:45; Stop 07/31/19 at 17:20; Status DC Acetaminophen (Tylenol) 650 mg PRN Q6HRS PRN PO MILD PAIN / TEMP; Start 07/29/19 at 00:45 Acetaminophen (Tylenol Supp) 325 mg PRN Q6HRS PRN [place] MILD PAIN / TEMP; Start 07/29/19 at 00:45 Ondansetron HCl (Zofran) 4 mg PRN Q6HRS PRN IV NAUSEA/VOMITING; Start 07/29/19 at 00:45 Alteplase, Recombinant 5.7 ml @ 342 mls/hr 1X ONCE IV Last administered on 07/29/19at 01:00; Start 07/29/19 at 01:00; Stop 07/29/19 at 01:01; Status DC Alteplase, Recombinant 51 ml @ 51 mls/hr Q1H IV Last administered on 07/29/19at 01:08; Start 07/29/19 at 01:00; Stop 07/29/19 at 01:59; Status DC Sodium Chloride 50 ml @ 200 mls/hr 1X ONCE IV Last administered on 07/29/19at 01:04; Start 07/29/19 at 01:00; Stop 07/29/19 at 01:14; Status DC Iohexol (Omnipaque 300 Mg/ml) 50 ml 1X ONCE IV Last administered on 07/29/19at 01:34; Start 07/29/19 at 01:15; Stop 07/29/19 at 01:16; Status DC Info (CONTRAST GIVEN -- Rx MONITORING) 1 each PRN DAILY PRN MC SEE COMMENTS; Start 07/29/19 at 01:15; Stop 07/31/19 at 01:14; Status DC Carvedilol (Coreg) 6.25 mg BIDWMEALS PO ; Start 07/29/19 at 09:00 Paroxetine HCl (Paxil) 10 mg DAILY PO ; Start 07/29/19 at 09:00 Pantoprazole Sodium (Protonix) 40 mg DAILYAC PO ; Start 07/29/19 at 09:00 Oxybutynin Chloride (Ditropan) 5 mg DAILY PO ; Start 07/29/19 at 09:00 Ceftriaxone Sodium (Rocephin) 1 gm Q24H IVP Last administered on 07/31/19at 22:06; Start 07/29/19 at 19:00; Stop 07/31/19 at 19:01; Status DC Simvastatin (Zocor) 20 mg HS PO ; Start 07/29/19 at 21:00; Stop 07/30/19 at 09:12; Status DC Aspirin (Richard Aspirin) 325 mg DAILYWBKFT PO ; Start 07/30/19 at 08:00; Stop 07/30/19 at 15:13; Status DC Atorvastatin Calcium (Lipitor) 40 mg QHS PO ; Start 07/30/19 at 21:00 Aspirin (Aspirin Rectal Supp) 300 mg DAILY [place] Last administered on 07/31/19at 09:03; Start 07/30/19 at 15:30 Amino Acids/ Glycerin/ Electrolytes 1,000 ml @ 80 mls/hr [id number] IV Last administered on 08/01/19at 01:30; Start 07/31/19 at 13:00 Active Scripts Active Culturelle (Lactobacillus Rhamnosus Gg) 1 Each Cap.sprink 1 Cap PO BID 14 Days Levofloxacin 250 Mg Tablet 250 Mg PO DAILY06 7 Days Reported Tramadol Hcl 50 Mg Tablet 50 Mg PO Q6HRS PRN Ranitidine Hcl 150 Mg Capsule 150 Mg PO BID Paroxetine Hcl 10 Mg Tablet 10 Mg PO DAILY Oxybutynin Chloride Er (Oxybutynin Chloride) 5 Mg Tab.er.24 1 Tab PO DAILY Prilosec Otc (Omeprazole Magnesium) 20 Mg Tablet.dr 2 Tab PO DAILY Meloxicam 7.5 Mg Tablet 1 Tab PO DAILY Carvedilol (Carvedilol) 6.25 Mg Tablet 6.25 Mg PO BIDWMEALS Vitals/I & O Vital Sign - Last 24 Hours 07/31/19 07/31/19 07/31/19 07/31/19 11:00 15:00 16:42 19:04 Temp 98.3 97.9 97.7 98.3 97.9 97.7 Pulse 72 75 75 79 Resp 16 16 18 B/P (MAP) 125/47 (73) 122/47 (72) 122/47 107/46 (66) Pulse Ox 93 92 92 O2 Delivery Room Air Room Air Room Air 07/31/19 07/31/19 07/31/19 08/01/19 20:00 23:40 23:53 03:04 Temp 98.0 97.8 98.0 97.8 Pulse 80 64 Resp 16 18 B/P (MAP) 140/59 (86) 133/49 (77) Pulse Ox 92 92 O2 Delivery Room Air Room Air Room Air Room Air 08/01/19 07:00 Temp 98.1 98.1 Pulse 59 Resp 20 B/P (MAP) 113/36 (61) Pulse Ox 94 O2 Delivery Room Air Intake and Output 07/31/19 07/31/19 08/01/19 15:00 23:00 07:00 Intake Total 0 ml Balance 0 ml RUPESH JAIMES APRN Aug 01, 2019 09:13
[2019-08-01 11:00] VITALS: BP 133/37
--- NOTE | 2019-08-01 13:07 | PDOC2 ---
PALLIATIVE CARE Palliative Care Note Palliative Care Consult requested by Dr. Lam to address feeding issues post stroke. Medical Assessment per medical record; (1) Acute CVA (cerebrovascular accident) (2) Acute encephalopathy (3) CLAY (acute kidney injury) (4) Altered mental status (5) Aphasia (6) Confusion (7) DM (diabetes mellitus) (8) Fall (9) HTN (hypertension) 10) Metabolic encephalopathy (11) Occlusion of left internal carotid artery (12) Old cerebrovascular accident (CVA) without late effect (13) Right sided weakness (14) UTI (urinary tract infection) Patient alert. Answers yes to questions. Is your name Isi Ramírez? Answers "yes" Spoke with son/Jean-Pierre. Patient has son Ronald and daughter. Plan family meeting tomorrow at 1600. Family can not come before this because of work. Discussed feeding tube with Jean-Pierre. He would be in favor of feeding tube but will need to have discussion with other family members. DENIZ FAUSTIN Aug 01, 2019 13:07
--- NOTE | 2019-08-01 13:57 | PDOC2 ---
GI CONSULT Reason For Consult: PEG HPI: HPI: Limited history from pt. 88 y/o female admitted 07/29 after fall at home and AMS - acute CVA s/p tPA - NPO w/ dysphagia. We are asked to see for possible PEG placement. Plans for family meeting w/ palliative care tomorrow. PMH: PMH: HTN, CVA, GERD, UTI cataract removal FH: Family History: No pertinent hx Social History: Smoke: No ALCOHOL: none Drugs: None ROS: Limited - she denies pain. Vitals: Vitals: Vital Signs Date Time Temp Pulse Resp B/P (MAP) Pulse Ox O2 Delivery O2 Flow Rate FiO2 08/01/19 11:00 98.3 74 16 133/37 (69) 93 Room Air 98.3 Allergies: Coded Allergies: No Known Drug Allergies (Unverified , 08/27/18) Imaging: Imaging: Head CT IMPRESSION: 1. No acute intracranial findings. 2. 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 3. 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 CTA head/neck Impression: 1. Small left posterior cerebral artery. 2. Occlusion of the left internal coronary. Impression: 1. 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 2. Occlusion of the left internal carotid artery. Brain MRI IMPRESSION: 1. Left middle cerebral artery territory infarct involving the left basal ganglia, insula and frontal and parietal lobes including the pre and post central gyri. Separately there are several small subcentimeter bilateral cortical based acute ischemic infarcts involving the parasagittal posterior frontal lobes and parietal lobes in the anterior cerebral artery territories. These are likely all related to downstream embolic strokes from the patient's prior occlusive left internal carotid artery thrombus on CT angiography one day ago. 2. The left internal carotid artery vascular flow void is intact and could indicate some reconstituted blood flow since thrombolytic therapy since prior angiographic imaging one day ago. This could be further assessed with dedicated CT or MR angiography. 3. Numerous chronic infarcts as described above. Echocardiogram <Conclusion> There is moderate concentric left ventricular hypertrophy. The left ventricular systolic function is normal and the ejection fraction is within normal range. EF 70% There is normal LV segmental wall motion. Doppler and Color Flow revealed moderate aortic regurgitation. Doppler and Color Flow revealed mild to moderate tricuspid regurgitation. 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 Even small amts of honey thick liquid resulted in s/s aspiration. Pt is at risk of aspiration r/t oral weakness, oropharyngeal delay and reduced airway closure based on current observations. NPO is indicated at this time and pt is at high risk of aspiration. Will f/u for progress toward safe po intake. RECOMMENDATIONS:NPO meds and nutrition. Oral care to reduce risk of aspiration pneumonia as pt is at risk of aspirating her own saliva. Results and recs explained to pt's two sons who were present during eval. LENORA Ivory. NPO posted HOB. PE: GEN: up in chair, weak HEENT: Atraumatic, PERRL LUNGS: CTAB HEART: RRR ABD: NABS, S/ND/NT EXTREMITY: No edema SKIN: No rashes,awake/alert, left facial drop A/P: A/P: CVA Bilateral CHEKO - vascular following, recs for ASA and to wait on endarterectomy for now Dysphagia ?GPC bacteremia -- Await family meeting tomorrow re: PEG. IVANCA CHAMPAGNE Aug 01, 2019 13:56
[2019-08-01 15:37] VITALS: BP 136/33
--- NOTE | 2019-08-01 15:48 | RAD ---
Examination: KUB History: Dobbhoff placement Comparison/Correlation: None Findings: Frontal views of the abdomen were obtained with supine portable technique. Catheter tubing or a lead noted overlying the mediastinum. Bowel gas pattern is unremarkable. No significant bowel distention. No extraluminal gas or obstruction. No suspicious abdominal calcifications. Impression: No suspicious process. Electronically signed by: Ollie Sawyer MD (08/01/2019 3:44 PM) [facility] [id number]
--- NOTE | 2019-08-01 16:20 | RAD ---
Single coned-down view of the epigastrium 08/01/2019 INDICATION: Dobbhoff tube placement COMPARISON STUDY:, Abdominal radiograph earlier today Discussion: There is a weighted feeding tube with tip coiled just above the diaphragm, likely within a hiatal hernia. The position is grossly unchanged from comparison exam. No grossly dilated bowel loops are seen in the upper abdomen. No other acute findings are noted. IMPRESSION: Weighted feeding tube coiled above the diaphragm cardiac, likely within a hiatal hernia Electronically signed by: Candelario Ferguson MD (08/01/2019 4:17 PM) [id number]
--- NOTE | 2019-08-01 16:31 | PDOC ---
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 Acute several small subcentimeter bilateral cortical based acute ischemic infarcts involving the parasagittal posterior frontal lobes and parietal lobes in the anterior cerebral artery territories. Aphasia on 07/28/19 s/p TPA. Right side weakness. Metabolic encephalopathy. Confusion. HTN. DM. 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 RECOMMENDATIONS/PLAN: TPA administrated on 07/28/19. ASA 325 mg daily, changed to 300 mg rectal due to not able to swallow. Statin HS. Consulted Vascular Surgery. May not be a good candidate for surgery due to significant encephalopathy. OT/PT. History of Present Illness This is an 88-year-old female patient with above medical diseases has not been feeling well in [facility] past 3 days described as tiredness and weakness in one side sometime and other side other times then the entire body. She had a fall at home. EMS was called for altered mental status associated with the fall. However upon further discussion patient has had fall a few days ago with bruising to left side of her head. Patient was initially alert and oriented 3. She follows commands appropriately. NIH of 3 however non-unilateral deficit. While in [facility] ER, she was noted to have new symptoms of aphasia and her NIH score became 6. She was thought to have acute CVA and TPA was offered to her after all criteria were met. Her CTA showed high grade stenosis and occlusion of left ICA. 08/01/19: Awake from time to time. Encephalopathic. Past Medical History Cardiovascular: HTN Pulmonary: No pertinent hx CENTRAL NERVOUS SYSTEM: CVA GI: GERD Heme/Onc: No pertinent hx Hepatobiliary: No pertinent hx Musculoskeletal: Osteoarthritis Rheumatologic: No pertinent hx Infectious disease: No pertinent hx ENT: No pertinent hx Renal/: No pertinent hx, UTI Endocrine: No pertinent hx Dermatology: No pertinent hx Past Surgical History No major surgery recently. Family History Heart Disease ALLERGY: NKDA MEDICATIONS: Refer to [facility] SOCIAL HISTORY: Denies current smoking, drinking, and illicit drug use. REVIEW OF SYSTEMS: Constitutional: No malnutrition, weight loss, cachexia. Head: No traumatic brain or head injury. Skin: No edema, or rash. Ear: No infection, tinnitus. Eyes: No vision loss or color blindness. Nose: No bleeding or purulent discharges. Hearing: Hearing decrease. Neck: No injury. Breast: No history of cancer, masses,or discharges. Cardiac: HTN. Pulmonary: No COPD. GI: GERD. Urinary/genital: UTI. Endocrinologic: Diabetes Mellitus. Skeletomuscular: Generalized weakness. Neurological: see HP. Psychiatric: Denies drug use/abuse. Otherwise, not [id number] review of systems. PHYSICAL EXAMINATION: General appearance is in subacute distress. HEENT: Normocephalic and nontraumatic. Eyes, nose, ears, and throat are unremarkable. Neck is supple. No lymphadenopathy. No crepitus. Cardiovascular: S1, S2, regular rate and rhythm. Pulmonary: mildly decreased to auscultation bilaterally. Abdomen: Bowel sounds are positive. Extremities: No rash, lesions, or edema. Restriction of range of motion in right UE. NEUROLOGICAL EXAMINATION: Drowsiness. Not oriented to time, place but knew person. PERRL. EOMI. CN: Right side VII palsy. Muscle tone: Decreased in right side. Muscle strength: 2 right UE and 3- LE. 5- left side. DTR: 1-2 Plantar reflex: Neutral response bilaterally Gait: not able to walk. Sensory exam: She was only able to answer a few questions for exam. No other acute cerebellar signs. F-T-N test fine left side. Objective Objective Vital Signs Date Time Temp Pulse Resp B/P (MAP) Pulse Ox O2 Delivery O2 Flow Rate FiO2 08/01/19 15:37 98.1 72 18 136/33 (67) 93 Room Air 98.1 Intake and Output 08/01/19 07:00 Intake Total 0 ml Balance 0 ml Intake Oral 0 ml # Voids 4 Vitals Signs Vitals VS - Last 72 Hours, by Label Date Time Temp Pulse Resp B/P (MAP) Pulse Ox O2 Delivery O2 Flow Rate FiO2 08/01/19 15:37 98.1 72 18 136/33 (67) 93 Room Air 98.1 08/01/19 11:00 98.3 74 16 133/37 (69) 93 Room Air 98.3 08/01/19 09:30 Room Air 08/01/19 07:00 98.1 59 20 113/36 (61) 94 Room Air 98.1 08/01/19 03:04 97.8 64 18 133/49 (77) 92 Room Air 97.8 07/31/19 23:53 98.0 80 16 140/59 (86) 92 Room Air 98.0 07/31/19 23:40 Room Air 07/31/19 20:00 Room Air 07/31/19 19:04 97.7 79 18 107/46 (66) 92 Room Air 97.7 07/31/19 16:42 75 122/47 07/31/19 15:00 97.9 75 16 122/47 (72) 92 Room Air 97.9 07/31/19 11:00 98.3 72 16 125/47 (73) 93 Room Air 98.3 07/31/19 08:00 Room Air 07/31/19 08:00 77 120/55 07/31/19 07:00 97.4 77 16 120/55 (76) 93 Room Air 97.4 Laboratory Laboratory Microbiology 07/29/19 Blood Culture - Preliminary, Resulted NO GROWTH AFTER 3 DAYS 07/28/19 Urine Culture - Preliminary, Resulted 07/28/19 Urine Culture Result 1 (ANTONIETA) - Preliminary, Resulted Comment Review of Relevant I have reviewed the following items shannan (where applicable) has been applied. JACQUE WINKLER MD Aug 01, 2019 16:31
[2019-08-01] MEDS: ASPIRIN RECTAL 300 MG SUPP. PR SCH (17:43)
[2019-08-01 19:47] VITALS: BP 124/51
[2019-08-01] MEDS: ATORVASTATIN CALCIUM 40 MG TABLET. PO SCH (21:00)
[2019-08-01 23:36] VITALS: BP 121/47
[2019-08-02 03:44] VITALS: BP 141/50
[2019-08-02] MEDS: AMINO AC 3%/ELECTROLYTE/GLYCER 1,000 ML IV SCH ×2 (06:45→21:42)
[2019-08-02] MEDS: PANTOPRAZOLE 40 MG TABLET.DR. PO SCH (07:30)
[2019-08-02 07:58] VITALS: BP 120/61
[2019-08-02] MEDS: CARVEDILOL 6.25 MG TABLET. PO SCH ×2 (08:00→16:49)
[2019-08-02] MEDS: PARoxetine 10 MG TABLET PO SCH (09:00)
[2019-08-02] MEDS: OXYBUTYNIN CHLORIDE 5 MG TABLET PO SCH (09:00)
[2019-08-02 11:20] VITALS: BP 139/52
--- NOTE | 2019-08-02 12:01 | PDOC ---
Objective: Objective: Discussed Dobhoff issues w/ nurse yesterday afternoon - attempted placement x 2 - possibly coiled in hiatal hernia on follow-up x-ray, then pt removed. Vital Signs: Vital Signs Date Time Temp Pulse Resp B/P (MAP) Pulse Ox O2 Delivery O2 Flow Rate FiO2 08/02/19 11:20 97.5 70 18 139/52 (81) 94 Room Air 97.5 Labs: URINE CULTURE RES 1 Final Escherichia coli BLOOD CULTURE Preliminary NO GROWTH AFTER 4 DAYS Imaging: KUB IMPRESSION: Weighted feeding tube coiled above the diaphragm cardiac, likely within a hiatal hernia PE: GEN: NAD NEURO/PSYCH: sleeping, not awakened A/P: CVA, dysphagia Dysphagia -- Dobhoff unsuccessful w/ possible hiatal hernia on x-ray which could prohibit PEG placement. Remains on PPN. Await family meeting today. VIANCA CHAMPAGNE Aug 02, 2019 12:01
--- NOTE | 2019-08-02 12:27 | PDOC ---
PROGRESS NOTES Chief Complaint Chief Complaint Acute CVA - s/p tPA, was admitted to ICU, getting better, . 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 Aphasia improving, Right side weakness. 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 History of Present Illness History of Present Illness IV procalamine cont the rehab modalities, NPO for dysphagia, RN unable to place dobhoff feeding tube palliative care following consider PEG tube for rehab prog poor Vitals Vitals Vital Signs Date Time Temp Pulse Resp B/P (MAP) Pulse Ox O2 Delivery O2 Flow Rate FiO2 08/02/19 11:20 97.5 70 18 139/52 (81) 94 Room Air 97.5 Physical Exam General: Alert, Cooperative, No acute distress Heart: Normal S1, Normal S2 Lungs: Clear Abdomen: Normal bowel sounds, Soft, No tenderness Extremities: No clubbing, No cyanosis, No edema, Normal pulses, No tenderness/swelling Skin: No rashes, No breakdown, No significant lesion Assessment and Plan Assessmemt and Plan Problems Medical Problems: (1) Acute CVA (cerebrovascular accident) Status: Acute (2) Acute encephalopathy Status: Acute (3) CLAY (acute kidney injury) Status: Acute (4) Altered mental status Status: Acute (5) Aphasia Status: Acute (6) Confusion Status: Chronic (7) DM (diabetes mellitus) Status: Chronic (8) Fall Status: Acute (9) HTN (hypertension) Status: Chronic (10) Metabolic encephalopathy Status: Acute (11) 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 Labs Microbiology 07/29/19 Blood Culture - Preliminary, Resulted NO GROWTH AFTER 4 DAYS 07/28/19 Urine Culture - Final, Complete 07/28/19 Urine Culture Result 1 (ANTONIETA) - Final, Complete 07/28/19 Antimicrobic Susceptibility - Final, Complete Medications Current Medications Ketorolac Tromethamine (Toradol 30mg Vial) 30 mg 1X ONCE IV Last administered on 07/28/19at 23:38; Start 07/28/19 at 23:30; Stop 07/28/19 at 23:31; Status DC Ceftriaxone Sodium (Rocephin) 1 gm 1X ONCE IVP Last administered on 07/29/19at 00:53; Start 07/28/19 at 23:45; Stop 07/28/19 at 23:46; Status DC Ondansetron HCl (Zofran) 4 mg PRN Q8HRS PRN IV NAUSEA/VOMITING; Start 07/29/19 at 00:00; Stop 07/29/19 at 08:42; Status DC Acetaminophen (Tylenol) 650 mg PRN Q4HRS PRN PO FEVER; Start 07/29/19 at 00:00; Stop 07/29/19 at 08:42; Status DC Alteplase, Recombinant 0 ml @ 0 mls/hr 1X ONCE IV ; Start 07/29/19 at 00:45; Stop 07/29/19 at 00:46; Status UNV Alteplase, Recombinant 0 ml @ 0 mls/hr Q1H IV ; Start 07/29/19 at 00:45; Stop 07/29/19 at 00:46; Status UNV Sodium Chloride 50 ml @ 0 mls/hr 1X ONCE IV ; Start 07/29/19 at 00:45; Stop 07/29/19 at 00:46; Status UNV Labetalol HCl (Normodyne Iv Push) 10 mg PRN Q10MIN PRN IVP HYPERTENSION; Start 07/29/19 at 00:45; Status UNV Nicardipine HCl 50 mg/Sodium Chloride 250 ml @ 25 mls/hr CONT PRN PRN IV HYPERTENSION; Start 07/29/19 at 00:45; Status UNV Labetalol HCl (Normodyne Iv Push) 10 mg PRN Q10MIN PRN IVP HYPERTENSION Last administered on 07/29/19at 14:06; Start 07/29/19 at 00:45 Nicardipine HCl 50 mg/Sodium Chloride 250 ml @ 25 mls/hr CONT PRN PRN IV HYPERTENSION; Start 07/29/19 at 00:45; Stop 07/31/19 at 17:20; Status DC Acetaminophen (Tylenol) 650 mg PRN Q6HRS PRN PO MILD PAIN / TEMP; Start 07/29/19 at 00:45 Acetaminophen (Tylenol Supp) 325 mg PRN Q6HRS PRN [place] MILD PAIN / TEMP; Start 07/29/19 at 00:45 Ondansetron HCl (Zofran) 4 mg PRN Q6HRS PRN IV NAUSEA/VOMITING; Start 07/29/19 at 00:45 Alteplase, Recombinant 5.7 ml @ 342 mls/hr 1X ONCE IV Last administered on 07/29/19at 01:00; Start 07/29/19 at 01:00; Stop 07/29/19 at 01:01; Status DC Alteplase, Recombinant 51 ml @ 51 mls/hr Q1H IV Last administered on 07/29/19at 01:08; Start 07/29/19 at 01:00; Stop 07/29/19 at 01:59; Status DC Sodium Chloride 50 ml @ 200 mls/hr 1X ONCE IV Last administered on 07/29/19at 01:04; Start 07/29/19 at 01:00; Stop 07/29/19 at 01:14; Status DC Iohexol (Omnipaque 300 Mg/ml) 50 ml 1X ONCE IV Last administered on 07/29/19at 01:34; Start 07/29/19 at 01:15; Stop 07/29/19 at 01:16; Status DC Info (CONTRAST GIVEN -- Rx MONITORING) 1 each PRN DAILY PRN MC SEE COMMENTS; Start 07/29/19 at 01:15; Stop 07/31/19 at 01:14; Status DC Carvedilol (Coreg) 6.25 mg BIDWMEALS PO ; Start 07/29/19 at 09:00 Paroxetine HCl (Paxil) 10 mg DAILY PO ; Start 07/29/19 at 09:00 Pantoprazole Sodium (Protonix) 40 mg DAILYAC PO ; Start 07/29/19 at 09:00 Oxybutynin Chloride (Ditropan) 5 mg DAILY PO ; Start 07/29/19 at 09:00 Ceftriaxone Sodium (Rocephin) 1 gm Q24H IVP Last administered on 07/31/19at 22:06; Start 07/29/19 at 19:00; Stop 07/31/19 at 19:01; Status DC Simvastatin (Zocor) 20 mg HS PO ; Start 07/29/19 at 21:00; Stop 07/30/19 at 09:12; Status DC Aspirin (Richard Aspirin) 325 mg DAILYWBKFT PO ; Start 07/30/19 at 08:00; Stop 07/30/19 at 15:13; Status DC Atorvastatin Calcium (Lipitor) 40 mg QHS PO ; Start 07/30/19 at 21:00 Aspirin (Aspirin Rectal Supp) 300 mg DAILY [place] Last administered on 08/01/19at 17:43; Start 07/30/19 at 15:30 Amino Acids/ Glycerin/ Electrolytes 1,000 ml @ 80 mls/hr [id number] IV Last administered on 08/02/19at 06:45; Start 07/31/19 at 13:00 Active Scripts Active Culturelle (Lactobacillus Rhamnosus Gg) 1 Each Cap.sprink 1 Cap PO BID 14 Days Levofloxacin 250 Mg Tablet 250 Mg PO DAILY06 7 Days Reported Tramadol Hcl 50 Mg Tablet 50 Mg PO Q6HRS PRN Ranitidine Hcl 150 Mg Capsule 150 Mg PO BID Paroxetine Hcl 10 Mg Tablet 10 Mg PO DAILY Oxybutynin Chloride Er (Oxybutynin Chloride) 5 Mg Tab.er.24 1 Tab PO DAILY Prilosec Otc (Omeprazole Magnesium) 20 Mg Tablet.dr 2 Tab PO DAILY Meloxicam 7.5 Mg Tablet 1 Tab PO DAILY Carvedilol (Carvedilol) 6.25 Mg Tablet 6.25 Mg PO BIDWMEALS Vitals/I & O Vital Sign - Last 24 Hours 08/01/19 08/01/19 08/01/19 08/01/19 15:37 19:47 19:50 23:36 Temp 98.1 98.0 97.6 98.1 98.0 97.6 Pulse 72 69 70 Resp 18 18 18 B/P (MAP) 136/33 (67) 124/51 (75) 121/47 (71) Pulse Ox 93 93 93 O2 Delivery Room Air Room Air Room Air Room Air 08/02/19 08/02/19 08/02/19 03:44 07:58 11:20 Temp 97.9 97.9 97.5 97.9 97.9 97.5 Pulse 73 73 70 Resp 18 18 18 B/P (MAP) 141/50 (80) 120/61 (80) 139/52 (81) Pulse Ox 93 96 94 O2 Delivery Room Air Room Air Room Air Intake and Output 08/01/19 08/01/19 08/02/19 15:00 23:00 07:00 Intake Total 0 ml Balance 0 ml Nutrition Consultation Dietary Evaluation: Recommendations by RD: Dietary education by RD, PPN/TPN Comments: REC continue PPN for short term nutrition at this time Expected Outcomes/Goals: diet advancement Malnutrition Findings: Body Fat Depletion (Non Severe: Mod to Severe Weight Status: Appropriate ERNESTO URBAN MD Aug 02, 2019 12:27
[2019-08-02 15:12] VITALS: BP 147/64
--- NOTE | 2019-08-02 15:40 | PDOC ---
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 Acute several small subcentimeter bilateral cortical based acute ischemic infarcts involving the parasagittal posterior frontal lobes and parietal lobes in the anterior cerebral artery territories. Aphasia on 07/28/19 s/p TPA. Right side weakness. Metabolic encephalopathy. Confusion. HTN. DM. 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 RECOMMENDATIONS/PLAN: TPA administrated on 07/28/19. ASA 325 mg daily, changed to 300 mg rectal due to not able to swallow. Statin HS. Consulted Vascular Surgery, but may not be a good candidate for surgical int ervention. Palliative care team consulted. OT/PT. Discussed with her [id number] at bedside on 08/02/19 (her son was on phone with other person). History of Present Illness This is an 88-year-old female patient with above medical diseases has not been feeling well in [facility] past 3 days described as tiredness and weakness in one side sometime and other side other times then the entire body. She had a fall at home. EMS was called for altered mental status associated with the fall. However upon further discussion patient has had fall a few days ago with bruising to left side of her head. Patient was initially alert and oriented 3. She follows commands appropriately. NIH of 3 however non-unilateral deficit. While in [facility] ER, she was noted to have new symptoms of aphasia and her NIH score became 6. She was thought to have acute CVA and TPA was offered to her after all criteria were met. Her CTA showed high grade stenosis and occlusion of left ICA. 08/01/19: Awake from time to time. Encephalopathic. Past Medical History Cardiovascular: HTN Pulmonary: No pertinent hx CENTRAL NERVOUS SYSTEM: CVA GI: GERD Heme/Onc: No pertinent hx Hepatobiliary: No pertinent hx Musculoskeletal: Osteoarthritis Rheumatologic: No pertinent hx Infectious disease: No pertinent hx ENT: No pertinent hx Renal/: No pertinent hx, UTI Endocrine: No pertinent hx Dermatology: No pertinent hx Past Surgical History No major surgery recently. Family History Heart Disease ALLERGY: NKDA MEDICATIONS: Refer to MAR SOCIAL HISTORY: Denies current smoking, drinking, and illicit drug use. REVIEW OF SYSTEMS: Constitutional: No malnutrition, weight loss, cachexia. Head: No traumatic brain or head injury. Skin: No edema, or rash. Ear: No infection, tinnitus. Eyes: No vision loss or color blindness. Nose: No bleeding or purulent discharges. Hearing: Hearing decrease. Neck: No injury. Breast: No history of cancer, masses,or discharges. Cardiac: HTN. Pulmonary: No COPD. GI: GERD. Urinary/genital: UTI. Endocrinologic: Diabetes Mellitus. Skeletomuscular: Generalized weakness. Neurological: see HP. Psychiatric: Denies drug use/abuse. Otherwise, not [id number] review of systems. PHYSICAL EXAMINATION: General appearance is in subacute distress. HEENT: Normocephalic and nontraumatic. Eyes, nose, ears, and throat are unremarkable. Neck is supple. No lymphadenopathy. No crepitus. Cardiovascular: S1, S2, regular rate and rhythm. Pulmonary: mildly decreased to auscultation bilaterally. Abdomen: Bowel sounds are positive. Extremities: No rash, lesions, or edema. Restriction of range of motion in right UE. NEUROLOGICAL EXAMINATION: Awake form time to time. Not oriented to time, place but knew person. PERRL. EOMI. CN: Right side VII palsy. Muscle tone: Decreased in right side. Muscle strength: 1-2 right UE and 3 LE. 5- left side. DTR: 1-2 Plantar reflex: weak extensor response in right side. Gait: not able to walk. Sensory exam: She was only able to answer a few questions for exam. No other acute cerebellar signs. F-T-N test fine left side. Objective Objective Vital Signs Date Time Temp Pulse Resp B/P (MAP) Pulse Ox O2 Delivery O2 Flow Rate FiO2 08/02/19 15:12 98.1 71 18 147/64 (91) 94 Room Air 98.1 Intake and Output 08/02/19 07:00 Intake Total 0 ml Balance 0 ml Intake Oral 0 ml # Voids 3 Vitals Signs Vitals VS - Last 72 Hours, by Label Date Time Temp Pulse Resp B/P (MAP) Pulse Ox O2 Delivery O2 Flow Rate FiO2 08/02/19 15:12 98.1 71 18 147/64 (91) 94 Room Air 98.1 08/02/19 11:20 97.5 70 18 139/52 (81) 94 Room Air 97.5 08/02/19 07:58 97.9 73 18 120/61 (80) 96 Room Air 97.9 08/02/19 03:44 97.9 73 18 141/50 (80) 93 Room Air 97.9 08/01/19 23:36 97.6 70 18 121/47 (71) 93 Room Air 97.6 08/01/19 19:50 Room Air 08/01/19 19:47 98.0 69 18 124/51 (75) 93 Room Air 98.0 08/01/19 15:37 98.1 72 18 136/33 (67) 93 Room Air 98.1 08/01/19 11:00 98.3 74 16 133/37 (69) 93 Room Air 98.3 08/01/19 09:30 Room Air 08/01/19 07:00 98.1 59 20 113/36 (61) 94 Room Air 98.1 Laboratory Laboratory Microbiology 07/29/19 Blood Culture - Preliminary, Resulted NO GROWTH AFTER 4 DAYS 07/28/19 Urine Culture - Final, Complete 07/28/19 Urine Culture Result 1 (ANTONIETA) - Final, Complete 07/28/19 Antimicrobic Susceptibility - Final, Complete Comment Review of Relevant I have reviewed the following items shannan (where applicable) has been applied. JACQUE WINKLER MD Aug 02, 2019 15:40
[2019-08-02] MEDS: ASPIRIN RECTAL 300 MG SUPP. PR SCH (16:52)
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
[2019-08-02 19:10] VITALS: BP 131/46
[2019-08-02] MEDS: ATORVASTATIN CALCIUM 40 MG TABLET. PO SCH (21:00)
[2019-08-02 23:15] VITALS: BP 133/41
[2019-08-03 03:45] VITALS: BP 141/51
[2019-08-03] MEDS: PANTOPRAZOLE 40 MG TABLET.DR. PO SCH (07:30)
[2019-08-03 07:53] VITALS: BP 162/54
[2019-08-03] MEDS: CARVEDILOL 6.25 MG TABLET. PO SCH ×2 (08:00→17:00)
[2019-08-03] MEDS: PARoxetine 10 MG TABLET PO SCH (09:00)
[2019-08-03] MEDS: OXYBUTYNIN CHLORIDE 5 MG TABLET PO SCH (09:00)
[2019-08-03] MEDS: AMINO AC 3%/ELECTROLYTE/GLYCER 1,000 ML IV SCH ×3 (09:20→22:00)
[2019-08-03 11:33] VITALS: BP 119/47
--- NOTE | 2019-08-03 12:19 | PDOC ---
Subjective: Subjective: "I'm cold." Objective: Objective: D/w Karely and Pat yesterday. Vital Signs: Vital Signs Date Time Temp Pulse Resp B/P (MAP) Pulse Ox O2 Delivery O2 Flow Rate FiO2 08/03/19 11:33 97.8 68 16 119/47 (71) 95 Room Air 97.8 PE: GEN: NAD LUNGS: CTAB HEART: RRR ABD: NABS, S/ND/NT NEURO/PSYCH: awake and alert, speech a bit difficult to understand A/P: CVA, dysphagia -- Family would like to pursue PEG if needed - possible hiatal hernia on imaging. GRADUATE RESEARCH ASSISTANT eval ongoing, will follow. VIANCA CHAMPAGNE Aug 03, 2019 12:19
--- NOTE | 2019-08-03 12:51 | PDOC ---
PROGRESS NOTES Chief Complaint Chief Complaint Acute CVA - s/p tPA, was admitted to ICU, getting better, . 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 Aphasia improving, Right side weakness. 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 History of Present Illness History of Present Illness IV procalamine cont the rehab modalities, NPO for dysphagia, RN unable to place dobhoff feeding tube palliative care following video swallow today, may pass, Speech therapy team is optimistic that she has improved, prog poor Vitals Vitals Vital Signs Date Time Temp Pulse Resp B/P (MAP) Pulse Ox O2 Delivery O2 Flow Rate FiO2 08/03/19 11:33 97.8 68 16 119/47 (71) 95 Room Air 97.8 Physical Exam General: Alert, Cooperative, No acute distress Heart: Normal S1, Normal S2 Lungs: Clear Abdomen: Normal bowel sounds, Soft, No tenderness Extremities: No clubbing, No cyanosis, No edema, Normal pulses, No tenderness/swelling Skin: No rashes, No breakdown, No significant lesion Assessment and Plan Assessmemt and Plan Problems Medical Problems: (1) Acute CVA (cerebrovascular accident) Status: Acute (2) Acute encephalopathy Status: Acute (3) CLAY (acute kidney injury) Status: Acute (4) Altered mental status Status: Acute (5) Aphasia Status: Acute (6) Confusion Status: Chronic (7) DM (diabetes mellitus) Status: Chronic (8) Fall Status: Acute (9) HTN (hypertension) Status: Chronic (10) Metabolic encephalopathy Status: Acute (11) 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 Labs Microbiology 07/29/19 Blood Culture - Final, Complete NO GROWTH AFTER 5 DAYS 07/28/19 Urine Culture - Final, Complete 07/28/19 Urine Culture Result 1 (ANTONIETA) - Final, Complete 07/28/19 Antimicrobic Susceptibility - Final, Complete Medications Current Medications Ketorolac Tromethamine (Toradol 30mg Vial) 30 mg 1X ONCE IV Last administered on 07/28/19at 23:38; Start 07/28/19 at 23:30; Stop 07/28/19 at 23:31; Status DC Ceftriaxone Sodium (Rocephin) 1 gm 1X ONCE IVP Last administered on 07/29/19at 00:53; Start 07/28/19 at 23:45; Stop 07/28/19 at 23:46; Status DC Ondansetron HCl (Zofran) 4 mg PRN Q8HRS PRN IV NAUSEA/VOMITING; Start 07/29/19 at 00:00; Stop 07/29/19 at 08:42; Status DC Acetaminophen (Tylenol) 650 mg PRN Q4HRS PRN PO FEVER; Start 07/29/19 at 00:00; Stop 07/29/19 at 08:42; Status DC Alteplase, Recombinant 0 ml @ 0 mls/hr 1X ONCE IV ; Start 07/29/19 at 00:45; Stop 07/29/19 at 00:46; Status UNV Alteplase, Recombinant 0 ml @ 0 mls/hr Q1H IV ; Start 07/29/19 at 00:45; Stop 07/29/19 at 00:46; Status UNV Sodium Chloride 50 ml @ 0 mls/hr 1X ONCE IV ; Start 07/29/19 at 00:45; Stop 07/29/19 at 00:46; Status UNV Labetalol HCl (Normodyne Iv Push) 10 mg PRN Q10MIN PRN IVP HYPERTENSION; Start 07/29/19 at 00:45; Status UNV Nicardipine HCl 50 mg/Sodium Chloride 250 ml @ 25 mls/hr CONT PRN PRN IV HYPERTENSION; Start 07/29/19 at 00:45; Status UNV Labetalol HCl (Normodyne Iv Push) 10 mg PRN Q10MIN PRN IVP HYPERTENSION Last administered on 07/29/19at 14:06; Start 07/29/19 at 00:45 Nicardipine HCl 50 mg/Sodium Chloride 250 ml @ 25 mls/hr CONT PRN PRN IV HYPERTENSION; Start 07/29/19 at 00:45; Stop 07/31/19 at 17:20; Status DC Acetaminophen (Tylenol) 650 mg PRN Q6HRS PRN PO MILD PAIN / TEMP; Start 07/29/19 at 00:45 Acetaminophen (Tylenol Supp) 325 mg PRN Q6HRS PRN [place] MILD PAIN / TEMP; Start 07/29/19 at 00:45 Ondansetron HCl (Zofran) 4 mg PRN Q6HRS PRN IV NAUSEA/VOMITING; Start 07/29/19 at 00:45 Alteplase, Recombinant 5.7 ml @ 342 mls/hr 1X ONCE IV Last administered on 07/29/19at 01:00; Start 07/29/19 at 01:00; Stop 07/29/19 at 01:01; Status DC Alteplase, Recombinant 51 ml @ 51 mls/hr Q1H IV Last administered on 07/29/19at 01:08; Start 07/29/19 at 01:00; Stop 07/29/19 at 01:59; Status DC Sodium Chloride 50 ml @ 200 mls/hr 1X ONCE IV Last administered on 07/29/19at 01:04; Start 07/29/19 at 01:00; Stop 07/29/19 at 01:14; Status DC Iohexol (Omnipaque 300 Mg/ml) 50 ml 1X ONCE IV Last administered on 07/29/19at 01:34; Start 07/29/19 at 01:15; Stop 07/29/19 at 01:16; Status DC Info (CONTRAST GIVEN -- Rx MONITORING) 1 each PRN DAILY PRN MC SEE COMMENTS; Start 07/29/19 at 01:15; Stop 07/31/19 at 01:14; Status DC Carvedilol (Coreg) 6.25 mg BIDWMEALS PO ; Start 07/29/19 at 09:00 Paroxetine HCl (Paxil) 10 mg DAILY PO ; Start 07/29/19 at 09:00 Pantoprazole Sodium (Protonix) 40 mg DAILYAC PO ; Start 07/29/19 at 09:00 Oxybutynin Chloride (Ditropan) 5 mg DAILY PO ; Start 07/29/19 at 09:00 Ceftriaxone Sodium (Rocephin) 1 gm Q24H IVP Last administered on 07/31/19at 22:06; Start 07/29/19 at 19:00; Stop 07/31/19 at 19:01; Status DC Simvastatin (Zocor) 20 mg HS PO ; Start 07/29/19 at 21:00; Stop 07/30/19 at 09:12; Status DC Aspirin (Richard Aspirin) 325 mg DAILYWBKFT PO ; Start 07/30/19 at 08:00; Stop 07/30/19 at 15:13; Status DC Atorvastatin Calcium (Lipitor) 40 mg QHS PO ; Start 07/30/19 at 21:00 Aspirin (Aspirin Rectal Supp) 300 mg DAILY [place] Last administered on 08/02/19at 16:52; Start 07/30/19 at 15:30 Amino Acids/ Glycerin/ Electrolytes 1,000 ml @ 80 mls/hr [id number] IV Last administered on 08/03/19at 09:20; Start 07/31/19 at 13:00 Active Scripts Active Culturelle (Lactobacillus Rhamnosus Gg) 1 Each Cap.sprink 1 Cap PO BID 14 Days Levofloxacin 250 Mg Tablet 250 Mg PO DAILY06 7 Days Reported Tramadol Hcl 50 Mg Tablet 50 Mg PO Q6HRS PRN Ranitidine Hcl 150 Mg Capsule 150 Mg PO BID Paroxetine Hcl 10 Mg Tablet 10 Mg PO DAILY Oxybutynin Chloride Er (Oxybutynin Chloride) 5 Mg Tab.er.24 1 Tab PO DAILY Prilosec Otc (Omeprazole Magnesium) 20 Mg Tablet.dr 2 Tab PO DAILY Meloxicam 7.5 Mg Tablet 1 Tab PO DAILY Carvedilol (Carvedilol) 6.25 Mg Tablet 6.25 Mg PO BIDWMEALS Vitals/I & O Vital Sign - Last 24 Hours 08/02/19 08/02/19 08/02/19 08/02/19 15:12 19:10 20:10 23:15 Temp 98.1 98.0 98.2 98.1 98.0 98.2 Pulse 71 69 69 Resp 18 16 16 B/P (MAP) 147/64 (91) 131/46 (74) 133/41 (71) Pulse Ox 94 94 94 O2 Delivery Room Air Room Air Room Air Room Air 08/03/19 08/03/19 08/03/19 08/03/19 03:45 07:53 08:00 08:00 Temp 97.9 97.9 97.9 97.9 Pulse 64 70 70 Resp 18 16 B/P (MAP) 141/51 (81) 162/54 (90) 162/54 Pulse Ox 93 95 O2 Delivery Room Air Room Air Room Air 08/03/19 11:33 Temp 97.8 97.8 Pulse 68 Resp 16 B/P (MAP) 119/47 (71) Pulse Ox 95 O2 Delivery Room Air Intake and Output 08/02/19 08/02/19 08/03/19 15:00 23:00 07:00 Intake Total 0 ml Balance 0 ml Nutrition Consultation Dietary Evaluation: Recommendations by RD: Dietary education by RD, PPN/TPN Comments: REC continue PPN for short term nutrition at this time Expected Outcomes/Goals: diet advancement Malnutrition Findings: Body Fat Depletion (Non Severe: Mod to Severe Weight Status: Appropriate ERNESTO URBAN MD Aug 03, 2019 12:51
[2019-08-03] MEDS: ASPIRIN RECTAL 300 MG SUPP. PR SCH (13:39)
[2019-08-03] MEDS ORDERED: BARIUM SULFATE 40% (APPLE) 148 GM PWD. PO ONE (14:00)
--- NOTE | 2019-08-03 15:03 | RAD ---
EXAM: Modified barium swallow. HISTORY: Dysphagia. FINDINGS: Barium contrast material was administered orally and multiple consistencies under the direction of speech pathology, and followed in its course during swallowing with video fluoroscopy. A fluoroscopic image and multiple videofluoroscopic clips were obtained. Fluoroscopy time 4.6 minutes. The radiologist was present for the entire imaging procedure. There was gross aspiration of nectar consistency prior to the swallow on one occasion. There was trace aspiration of pharyngeal residue. Both resulted in cough. There was laryngeal penetration with other consistencies. IMPRESSION: 1. Aspiration with nectar consistencies. Refer to the full report by speech pathology for more detail. Electronically signed by: Jennie Foster MD (08/03/2019 3:00 PM) [facility]
--- NOTE | 2019-08-03 15:11 | PDOC ---
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 Acute several small subcentimeter bilateral cortical based acute ischemic infarcts involving the parasagittal posterior frontal lobes and parietal lobes in the anterior cerebral artery territories. Aphasia on 07/28/19 s/p TPA. Right side weakness. Metabolic encephalopathy. Confusion. HTN. DM. 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 RECOMMENDATIONS/PLAN: TPA administrated on 07/28/19. ASA 325 mg daily, changed to 300 mg rectal due to not able to swallow. Statin HS. Consulted Vascular Surgery. Palliative care team consulted. PEG per family if not able to swallow. OT/PT. Rehab. Discussed with her [id number] at bedside before. History of Present Illness This is an 88-year-old female patient with above medical diseases has not been feeling well in [facility] past 3 days described as tiredness and weakness in one side sometime and other side other times then the entire body. She had a fall at home. EMS was called for altered mental status associated with the fall. However upon further discussion patient has had fall a few days ago with bruising to left side of her head. Patient was initially alert and oriented 3. She follows commands appropriately. NIH of 3 however non-unilateral deficit. While in [facility] ER, she was noted to have new symptoms of aphasia and her NIH score became 6. She was thought to have acute CVA and TPA was offered to her after all criteria were met. Her CTA showed high grade stenosis and occlusion of left ICA. 08/03/19: Mental status improved in some degree, but still encephalopathic. Past Medical History Cardiovascular: HTN Pulmonary: No pertinent hx CENTRAL NERVOUS SYSTEM: CVA GI: GERD Heme/Onc: No pertinent hx Hepatobiliary: No pertinent hx Musculoskeletal: Osteoarthritis Rheumatologic: No pertinent hx Infectious disease: No pertinent hx ENT: No pertinent hx Renal/: No pertinent hx, UTI Endocrine: No pertinent hx Dermatology: No pertinent hx Past Surgical History No major surgery recently. Family History Heart Disease ALLERGY: NKDA MEDICATIONS: Refer to [facility] SOCIAL HISTORY: Denies current smoking, drinking, and illicit drug use. REVIEW OF SYSTEMS: Constitutional: No malnutrition, weight loss, cachexia. Head: No traumatic brain or head injury. Skin: No edema, or rash. Ear: No infection, tinnitus. Eyes: No vision loss or color blindness. Nose: No bleeding or purulent discharges. Hearing: Hearing decrease. Neck: No injury. Breast: No history of cancer, masses,or discharges. Cardiac: HTN. Pulmonary: No COPD. GI: GERD. Urinary/genital: UTI. Endocrinologic: Diabetes Mellitus. Skeletomuscular: Generalized weakness. Neurological: see HP. Psychiatric: Denies drug use/abuse. Otherwise, not [id number] review of systems. PHYSICAL EXAMINATION: General appearance is in subacute distress. HEENT: Normocephalic and nontraumatic. Eyes, nose, ears, and throat are unremarkable. Neck is supple. No lymphadenopathy. No crepitus. Cardiovascular: S1, S2, regular rate and rhythm. Pulmonary: mildly decreased to auscultation bilaterally. Abdomen: Bowel sounds are positive. Extremities: No rash, lesions, or edema. Restriction of range of motion in right UE. NEUROLOGICAL EXAMINATION: Awake form time to time. Not oriented to time, place but knew person. PERRL. EOMI. CN: Right side VII palsy. Muscle tone: Decreased in right side. Muscle strength: 1-2 right UE and 3 LE. 5- left side. DTR: 1-2 Plantar reflex: weak extensor response in right side. Gait: not able to walk. Sensory exam: Decreased in right UE. No other acute cerebellar signs. F-T-N test fine left side. Objective Objective Vital Signs Date Time Temp Pulse Resp B/P (MAP) Pulse Ox O2 Delivery O2 Flow Rate FiO2 08/03/19 11:33 97.8 68 16 119/47 (71) 95 Room Air 97.8 Intake and Output 08/03/19 07:00 Intake Total 0 ml Balance 0 ml Intake Oral 0 ml # Voids 2 Vitals Signs Vitals VS - Last 72 Hours, by Label Date Time Temp Pulse Resp B/P (MAP) Pulse Ox O2 Delivery O2 Flow Rate FiO2 08/03/19 11:33 97.8 68 16 119/47 (71) 95 Room Air 97.8 08/03/19 08:00 Room Air 08/03/19 08:00 70 162/54 08/03/19 07:53 97.9 70 16 162/54 (90) 95 Room Air 97.9 08/03/19 03:45 97.9 64 18 141/51 (81) 93 Room Air 97.9 08/02/19 23:15 98.2 69 16 133/41 (71) 94 Room Air 98.2 08/02/19 20:10 Room Air 08/02/19 19:10 98.0 69 16 131/46 (74) 94 Room Air 98.0 08/02/19 15:12 98.1 71 18 147/64 (91) 94 Room Air 98.1 08/02/19 11:20 97.5 70 18 139/52 (81) 94 Room Air 97.5 08/02/19 08:45 Room Air 08/02/19 07:58 97.9 73 18 120/61 (80) 96 Room Air 97.9 Laboratory Laboratory Microbiology 07/29/19 Blood Culture - Final, Complete NO GROWTH AFTER 5 DAYS 07/28/19 Urine Culture - Final, Complete 07/28/19 Urine Culture Result 1 (ANTONIETA) - Final, Complete 07/28/19 Antimicrobic Susceptibility - Final, Complete Medication Medications Current Medications Barium Sulfate (Varibar Thin Liquid Apple) 148 gm 1X ONCE PO Last administered on 08/03/19at 14:00; Start 08/03/19 at 14:00; Stop 08/03/19 at 14:01; Status DC Comment Review of Relevant I have reviewed the following items shannan (where applicable) has been applied. JACQUE WINKLER MD Aug 03, 2019 15:11
[2019-08-03 15:46] VITALS: BP 155/58
[2019-08-03 19:00] VITALS: BP 145/64
[2019-08-03] MEDS: ATORVASTATIN CALCIUM 40 MG TABLET. PO SCH (19:47)
[2019-08-03 22:46] VITALS: BP 115/56
[2019-08-04] MEDS: ACETAMINOPHEN 325 MG SUPP.RECT. PR PRN (00:11)
[2019-08-04 02:34] VITALS: BP 137/51
[2019-08-04 07:00] VITALS: BP 132/46
[2019-08-04 07:03] LABS: PROTHROMBIN TIME PATIENT 13.6 SEC (11.7-14.0)
[2019-08-04] MEDS: PANTOPRAZOLE 40 MG TABLET.DR. PO SCH (07:30)
[2019-08-04] MEDS ORDERED: IV RINGERS,LACTATED 1000ML 1,000 ML IV ONE (08:00)
[2019-08-04] MEDS: CARVEDILOL 6.25 MG TABLET. PO SCH ×2 (08:00→17:00)
[2019-08-04] MEDS ORDERED: IV RINGERS,LACTATED 1000ML 1,000 ML IV SCH (08:17)
[2019-08-04] MEDS ORDERED: PROPOFOL 20 ML IV ONE (08:54)
[2019-08-04] MEDS ORDERED: LIDOCAINE 2% PF 5 ML VIAL. ONE (08:54)
[2019-08-04] MEDS: ASPIRIN RECTAL 300 MG SUPP. PR SCH (09:00)
[2019-08-04] MEDS: PARoxetine 10 MG TABLET PO SCH (09:00)
[2019-08-04] MEDS: OXYBUTYNIN CHLORIDE 5 MG TABLET PO SCH (09:00)
[2019-08-04] MEDS ORDERED: ceFAZolin SODIUM 1 GM in IV DEXTROSE 5% 100ML 100 ML IV ONE (09:00)
--- NOTE | 2019-08-04 09:13 | PDOC4 ---
Operative Note Operative Note EGD with attempted PEG Meds propofol per anesthesia re-op dx oropharyngeal dysphagia post-op dx large hiatal hernia non-erosive gastritis PEG unable to be -placed as external palpation and passage of anesthetic with thiin guage needle unable to locate gastric lumen plan surgery consutl with Dr Santizo for possible surgical G tube placement WOODY EGAN MD Aug 04, 2019 09:13
--- NOTE | 2019-08-04 10:11 | PDOC ---
Infectious Disease Note Vital Sign Vital Signs Vital Signs Date Time Temp Pulse Resp B/P (MAP) Pulse Ox O2 Delivery O2 Flow Rate FiO2 08/04/19 09:33 97.0 65 20 124/73 96 Room Air 97.0 08/04/19 09:11 2 Labs Lab Laboratory Tests Test 08/04/19 04:23 Prothrombin Time 13.6 SEC (11.7-14.0) Prothromb Time International Ratio 1.1 (0.8-1.1) Micro Microbiology 07/29/19 Blood Culture - Final, Complete NO GROWTH AFTER 5 DAYS 07/28/19 Urine Culture - Final, Complete 07/28/19 Urine Culture Result 1 (ANTONIETA) - Final, Complete 07/28/19 Antimicrobic Susceptibility - Final, Complete Objective Assessment pt seen, consult dictated Plan Plan of Care / LUIS BURGOS MD Aug 04, 2019 10:11
--- NOTE | 2019-08-04 10:37 | PDOC2 ---
CONSULT Date of Consult Date of Consult DATE: 08/04/19 TIME: 10:30 Reason for Consult Reason for Consult: g tube placement Referring Physician Referring Physician: Dr Ballesteros Identification/Chief Complaint Chief Complaint weakness, fall, AMS Source Source: Chart review, Patient History of Present Illness Reason for Visit: Currently no family present. Patient can answer some questions. Admitted with AMS, fall. CVA, tpa dysphagia--NPO, GI unable to place peg--surgical request for g tube--noted HH Past Medical History Cardiovascular: HTN Pulmonary: No pertinent hx CENTRAL NERVOUS SYSTEM: CVA GI: GERD Heme/Onc: No pertinent hx Hepatobiliary: No pertinent hx Musculoskeletal: Osteoarthritis Rheumatologic: No pertinent hx Infectious disease: No pertinent hx ENT: No pertinent hx Renal/: No pertinent hx, UTI Endocrine: No pertinent hx Dermatology: No pertinent hx Past Surgical History Past Surgical History: Other Family History Family History: Heart Disease, Hypertension Social History No ALCOHOL: none Drugs: None Current Problem List Problem List Problems Medical Problems: (1) Acute CVA (cerebrovascular accident) Status: Acute (2) Acute encephalopathy Status: Acute (3) CLAY (acute kidney injury) Status: Acute (4) Altered mental status Status: Acute (5) Aphasia Status: Acute (6) Confusion Status: Chronic (7) DM (diabetes mellitus) Status: Chronic (8) Fall Status: Acute (9) HTN (hypertension) Status: Chronic (10) Metabolic encephalopathy Status: Acute (11) Occlusion of left internal carotid artery Status: Acute (12) Old cerebrovascular accident (CVA) without late effect Status: Acute (13) Right sided weakness Status: Acute (14) UTI (urinary tract infection) Status: Acute Current Medications Current Medications Current Medications Ketorolac Tromethamine (Toradol 30mg Vial) 30 mg 1X ONCE IV Last administered on 07/28/19at 23:38; Start 07/28/19 at 23:30; Stop 07/28/19 at 23:31; Status DC Ceftriaxone Sodium (Rocephin) 1 gm 1X ONCE IVP Last administered on 07/29/19at 00:53; Start 07/28/19 at 23:45; Stop 07/28/19 at 23:46; Status DC Ondansetron HCl (Zofran) 4 mg PRN Q8HRS PRN IV NAUSEA/VOMITING; Start 07/29/19 at 00:00; Stop 07/29/19 at 08:42; Status DC Acetaminophen (Tylenol) 650 mg PRN Q4HRS PRN PO FEVER; Start 07/29/19 at 00:00; Stop 07/29/19 at 08:42; Status DC Alteplase, Recombinant 0 ml @ 0 mls/hr 1X ONCE IV ; Start 07/29/19 at 00:45; Stop 07/29/19 at 00:46; Status UNV Alteplase, Recombinant 0 ml @ 0 mls/hr Q1H IV ; Start 07/29/19 at 00:45; Stop 07/29/19 at 00:46; Status UNV Sodium Chloride 50 ml @ 0 mls/hr 1X ONCE IV ; Start 07/29/19 at 00:45; Stop 07/29/19 at 00:46; Status UNV Labetalol HCl (Normodyne Iv Push) 10 mg PRN Q10MIN PRN IVP HYPERTENSION; Start 07/29/19 at 00:45; Status UNV Nicardipine HCl 50 mg/Sodium Chloride 250 ml @ 25 mls/hr CONT PRN PRN IV HYPERTENSION; Start 07/29/19 at 00:45; Status UNV Labetalol HCl (Normodyne Iv Push) 10 mg PRN Q10MIN PRN IVP HYPERTENSION Last administered on 07/29/19at 14:06; Start 07/29/19 at 00:45 Nicardipine HCl 50 mg/Sodium Chloride 250 ml @ 25 mls/hr CONT PRN PRN IV HYPERTENSION; Start 07/29/19 at 00:45; Stop 07/31/19 at 17:20; Status DC Acetaminophen (Tylenol) 650 mg PRN Q6HRS PRN PO MILD PAIN / TEMP; Start 07/29/19 at 00:45 Acetaminophen (Tylenol Supp) 325 mg PRN Q6HRS PRN GA MILD PAIN / TEMP Last administered on 08/04/19at 00:11; Start 07/29/19 at 00:45 Ondansetron HCl (Zofran) 4 mg PRN Q6HRS PRN IV NAUSEA/VOMITING; Start 07/29/19 at 00:45 Alteplase, Recombinant 5.7 ml @ 342 mls/hr 1X ONCE IV Last administered on 07/29/19at 01:00; Start 07/29/19 at 01:00; Stop 07/29/19 at 01:01; Status DC Alteplase, Recombinant 51 ml @ 51 mls/hr Q1H IV Last administered on 07/29/19at 01:08; Start 07/29/19 at 01:00; Stop 07/29/19 at 01:59; Status DC Sodium Chloride 50 ml @ 200 mls/hr 1X ONCE IV Last administered on 07/29/19at 01:04; Start 07/29/19 at 01:00; Stop 07/29/19 at 01:14; Status DC Iohexol (Omnipaque 300 Mg/ml) 50 ml 1X ONCE IV Last administered on 07/29/19at 01:34; Start 07/29/19 at 01:15; Stop 07/29/19 at 01:16; Status DC Info (CONTRAST GIVEN -- Rx MONITORING) 1 each PRN DAILY PRN MC SEE COMMENTS; Start 07/29/19 at 01:15; Stop 07/31/19 at 01:14; Status DC Carvedilol (Coreg) 6.25 mg BIDWMEALS PO ; Start 07/29/19 at 09:00 Paroxetine HCl (Paxil) 10 mg DAILY PO ; Start 07/29/19 at 09:00 Pantoprazole Sodium (Protonix) 40 mg DAILYAC PO ; Start 07/29/19 at 09:00 Oxybutynin Chloride (Ditropan) 5 mg DAILY PO ; Start 07/29/19 at 09:00 Ceftriaxone Sodium (Rocephin) 1 gm Q24H IVP Last administered on 07/31/19at 22:06; Start 07/29/19 at 19:00; Stop 07/31/19 at 19:01; Status DC Simvastatin (Zocor) 20 mg HS PO ; Start 07/29/19 at 21:00; Stop 07/30/19 at 09:12; Status DC Aspirin (Richard Aspirin) 325 mg DAILYWBKFT PO ; Start 07/30/19 at 08:00; Stop 07/30/19 at 15:13; Status DC Atorvastatin Calcium (Lipitor) 40 mg QHS PO ; Start 07/30/19 at 21:00 Aspirin (Aspirin Rectal Supp) 300 mg DAILY GA Last administered on 08/03/19at 13:39; Start 07/30/19 at 15:30 Amino Acids/ Glycerin/ Electrolytes 1,000 ml @ 80 mls/hr [id number] IV Last administered on 08/03/19at 22:00; Start 07/31/19 at 13:00 Barium Sulfate (Varibar Thin Liquid Apple) 148 gm 1X ONCE PO Last administered on 08/03/19at 14:00; Start 08/03/19 at 14:00; Stop 08/03/19 at 14:01; Status DC Cefazolin Sodium 1 gm/Dextrose 100 ml @ 200 mls/hr 1X PREOP ONCE IV ; Start 08/04/19 at 09:00; Stop 08/04/19 at 09:29; Status UNV Cefazolin Sodium 50 ml @ 100 mls/hr 1X PREOP PRN IV PRIOR TO PROCEDURE Last administered on 08/04/19at 08:55; Start 08/04/19 at 09:00; Stop 08/04/19 at 09:01; Status DC Ringer's Solution 1,000 ml @ 75 mls/hr 1X ONCE IV Last administered on 08/04/19at 08:00; Start 08/04/19 at 08:00; Stop 08/04/19 at 21:19 Ringer's Solution 1,000 ml @ 50 mls/hr Q20H IV ; Start 08/04/19 at 08:17; Stop 08/04/19 at 20:16 Morphine Sulfate (Morphine Sulfate) 1 mg PRN Q2HR PRN IV PAIN; Start 08/04/19 at 08:45 Propofol 20 ml @ As Directed STK-MED ONCE IV ; Start 08/04/19 at 08:54; Stop 08/04/19 at 08:54; Status DC Lidocaine HCl (Lidocaine Pf 2% Vial) 5 ml STK-MED ONCE .ROUTE ; Start 08/04/19 at 08:54; Stop 08/04/19 at 08:54; Status DC Active Scripts Active Culturelle (Lactobacillus Rhamnosus Gg) 1 Each Cap.sprink 1 Cap PO BID 14 Days Levofloxacin 250 Mg Tablet 250 Mg PO DAILY06 7 Days Reported Tramadol Hcl 50 Mg Tablet 50 Mg PO Q6HRS PRN Ranitidine Hcl 150 Mg Capsule 150 Mg PO BID Paroxetine Hcl 10 Mg Tablet 10 Mg PO DAILY Oxybutynin Chloride Er (Oxybutynin Chloride) 5 Mg Tab.er.24 1 Tab PO DAILY Prilosec Otc (Omeprazole Magnesium) 20 Mg Tablet. 2 Tab PO DAILY Meloxicam 7.5 Mg Tablet 1 Tab PO DAILY Carvedilol (Carvedilol) 6.25 Mg Tablet 6.25 Mg PO BIDWMEALS Allergies Allergies: Coded Allergies: No Known Drug Allergies (Unverified , 08/04/19) ROS Review of System poor ability to answer questions, AMS Physical Exam General: Cooperative, No acute distress HEENT: Mucous membr. moist/pink Lungs: Clear to auscultation, Normal air movement Heart: Regular rate, Normal S1, Normal S2 Abdomen: Soft, No tenderness Extremities: No clubbing, No cyanosis Neuro: Other (noted flaccid right side) Vitals VITALS Vital Signs Date Time Temp Pulse Resp B/P (MAP) Pulse Ox O2 Delivery O2 Flow Rate FiO2 08/04/19 09:33 97.0 65 20 124/73 96 Room Air 97.0 08/04/19 09:11 2 Labs Labs Laboratory Tests Test 08/04/19 04:23 Prothrombin Time 13.6 SEC (11.7-14.0) Prothromb Time International Ratio 1.1 (0.8-1.1) Laboratory Tests Test 08/04/19 04:23 Prothrombin Time 13.6 SEC (11.7-14.0) Prothromb Time International Ratio 1.1 (0.8-1.1) Assessment/Plan Assessment/Plan poor surgical candidate with advanced age, recent CVA will get CT chest/abd to eval before discussing any surgical intervention ACE NÚÑEZ APRN Aug 04, 2019 10:37
[2019-08-04 10:41] VITALS: BP 148/61
--- NOTE | 2019-08-04 10:51 | PDOC ---
PROGRESS NOTES Chief Complaint Chief Complaint Acute CVA - s/p tPA, was admitted to ICU, Acute metabolic and toxic encephalopathy CVA syndrome + UTI. E coli UTi with some resistance Staph bacteremia Aphasia improving, Right side weakness. 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 Gen weakness - [facility] Dysphagia persistent HUge hiatal hernia, precluded so and PEG DNR History of Present Illness History of Present Illness transferred from ICU and tele NOw on non tele STILL NPO and huge hiatal hernia, techincal difficulties with trial PEG 08/04 ISsues with so too as expected PAlliative on case DNR Dr Watts consulted and will attempt some G tube of sorts for nutrition, otherwise, I might need TPN and PICC STAPH BACTEREMIA' Staphylococcus species Performed at: [facility], [place], [place] [id number] Community Program Assistant: JONAS Rosas MD, Phone: [phone] Staphylococcus haemolyticus Based on resistance to oxacillin this isolate would be resistant to all currently available beta-lactam antimicrobial agents, with the exception of the newer cephalosporins with anti-MRSA activity, such as Ceftaroline ANTIMICROBIAL SUSCEPTIBILITY Final Comment S = Susceptible; I = Intermediate; R = Resistant P = Positive; N = Negative MICS are expressed in micrograms per mL Antibiotic RSLT#1 RSLT#2 RSLT#3 RSLT#4 Ciprofloxacin R>=8 Clindamycin S<=0.25 Erythromycin R>=8 Gentamicin S<=0.5 Levofloxacin I =4 Linezolid S =2 Oxacillin R>=4 Penicillin R>=0.5 Rifampin S<=0.5 Tetracycline S<=1 Trimethoprim/Sulfa S<=10 Vancomycin S =1 Performed at: [facility], [place], [place] [id number] E coli UTI Amoxicillin/Clavulanic Acid S =8 Ampicillin R>=32 Cefepime S<=0.12 Ceftriaxone S<=0.25 Cefuroxime S =4 Ciprofloxacin S<=0.25 Ertapenem S<=0.12 Gentamicin R>=16 Imipenem S<=0.25 Levofloxacin S<=0.12 Meropenem S<=0.25 Nitrofurantoin S<=16 Piperacillin/Tazobactam S<=[address] marquez - id plan: CONSULT ID RE ABOVE BLOOD AND URINE CXS - DISCUSSED WITH ID ONLY GOT CEFAZOLIN X 1 G TUBE PLACEMENT- HOLD OFF PICC SINCE STAPH BACTEREMIC IV ABX PER ID [facility] NPO, TRIAL G TUBE OR SURGICAL METHODS FOR NUTRITION DW TEO CONNELL Vitals Vitals Vital Signs Date Time Temp Pulse Resp B/P (MAP) Pulse Ox O2 Delivery O2 Flow Rate FiO2 08/04/19 10:41 97.8 70 16 148/61 (90) 94 Room Air 97.8 08/04/19 09:11 2 Physical Exam General: Cooperative, No acute distress Heart: Regular rate, Normal S1, Normal S2 Lungs: Clear Abdomen: Soft, No tenderness Extremities: No clubbing, No cyanosis Skin: No rashes, No breakdown, No significant lesion Labs LABS Laboratory Tests Test 08/04/19 04:23 Prothrombin Time 13.6 SEC (11.7-14.0) Prothromb Time International Ratio 1.1 (0.8-1.1) Review of Systems Review of Systems DEMENTIA, LIMITED ROS Assessment and Plan Assessmemt and Plan Problems Medical Problems: (1) Acute CVA (cerebrovascular accident) Status: Acute (2) Acute encephalopathy Status: Acute (3) CLAY (acute kidney injury) Status: Acute (4) Altered mental status Status: Acute (5) Aphasia Status: Acute (6) Confusion Status: Chronic (7) DM (diabetes mellitus) Status: Chronic (8) Fall Status: Acute (9) HTN (hypertension) Status: Chronic (10) Metabolic encephalopathy Status: Acute (11) 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 Labs Laboratory Tests Test 08/04/19 04:23 Prothrombin Time 13.6 SEC (11.7-14.0) Prothromb Time International Ratio 1.1 (0.8-1.1) Laboratory Tests Test 08/04/19 04:23 Prothrombin Time 13.6 SEC (11.7-14.0) Prothromb Time International Ratio 1.1 (0.8-1.1) Microbiology 07/29/19 Blood Culture - Final, Complete NO GROWTH AFTER 5 DAYS 07/28/19 Urine Culture - Final, Complete 07/28/19 Urine Culture Result 1 (ANTONIETA) - Final, Complete 07/28/19 Antimicrobic Susceptibility - Final, Complete Medications Current Medications Ketorolac Tromethamine (Toradol 30mg Vial) 30 mg 1X ONCE IV Last administered on 07/28/19at 23:38; Start 07/28/19 at 23:30; Stop 07/28/19 at 23:31; Status DC Ceftriaxone Sodium (Rocephin) 1 gm 1X ONCE IVP Last administered on 07/29/19at 00:53; Start 07/28/19 at 23:45; Stop 07/28/19 at 23:46; Status DC Ondansetron HCl (Zofran) 4 mg PRN Q8HRS PRN IV NAUSEA/VOMITING; Start 07/29/19 at 00:00; Stop 07/29/19 at 08:42; Status DC Acetaminophen (Tylenol) 650 mg PRN Q4HRS PRN PO FEVER; Start 07/29/19 at 00:00; Stop 07/29/19 at 08:42; Status DC Alteplase, Recombinant 0 ml @ 0 mls/hr 1X ONCE IV ; Start 07/29/19 at 00:45; Stop 07/29/19 at 00:46; Status UNV Alteplase, Recombinant 0 ml @ 0 mls/hr Q1H IV ; Start 07/29/19 at 00:45; Stop 07/29/19 at 00:46; Status UNV Sodium Chloride 50 ml @ 0 mls/hr 1X ONCE IV ; Start 07/29/19 at 00:45; Stop 07/29/19 at 00:46; Status UNV Labetalol HCl (Normodyne Iv Push) 10 mg PRN Q10MIN PRN IVP HYPERTENSION; Start 07/29/19 at 00:45; Status UNV Nicardipine HCl 50 mg/Sodium Chloride 250 ml @ 25 mls/hr CONT PRN PRN IV HYPERTENSION; Start 07/29/19 at 00:45; Status UNV Labetalol HCl (Normodyne Iv Push) 10 mg PRN Q10MIN PRN IVP HYPERTENSION Last administered on 07/29/19at 14:06; Start 07/29/19 at 00:45 Nicardipine HCl 50 mg/Sodium Chloride 250 ml @ 25 mls/hr CONT PRN PRN IV HYPERTENSION; Start 07/29/19 at 00:45; Stop 07/31/19 at 17:20; Status DC Acetaminophen (Tylenol) 650 mg PRN Q6HRS PRN PO MILD PAIN / TEMP; Start 07/29/19 at 00:45 Acetaminophen (Tylenol Supp) 325 mg PRN Q6HRS PRN VT MILD PAIN / TEMP Last administered on 08/04/19at 00:11; Start 07/29/19 at 00:45 Ondansetron HCl (Zofran) 4 mg PRN Q6HRS PRN IV NAUSEA/VOMITING; Start 07/29/19 at 00:45 Alteplase, Recombinant 5.7 ml @ 342 mls/hr 1X ONCE IV Last administered on 07/29/19at 01:00; Start 07/29/19 at 01:00; Stop 07/29/19 at 01:01; Status DC Alteplase, Recombinant 51 ml @ 51 mls/hr Q1H IV Last administered on 07/29/19at 01:08; Start 07/29/19 at 01:00; Stop 07/29/19 at 01:59; Status DC Sodium Chloride 50 ml @ 200 mls/hr 1X ONCE IV Last administered on 07/29/19at 01:04; Start 07/29/19 at 01:00; Stop 07/29/19 at 01:14; Status DC Iohexol (Omnipaque 300 Mg/ml) 50 ml 1X ONCE IV Last administered on 07/29/19at 01:34; Start 07/29/19 at 01:15; Stop 07/29/19 at 01:16; Status DC Info (CONTRAST GIVEN -- Rx MONITORING) 1 each PRN DAILY PRN MC SEE COMMENTS; Start 07/29/19 at 01:15; Stop 07/31/19 at 01:14; Status DC Carvedilol (Coreg) 6.25 mg BIDWMEALS PO ; Start 07/29/19 at 09:00 Paroxetine HCl (Paxil) 10 mg DAILY PO ; Start 07/29/19 at 09:00 Pantoprazole Sodium (Protonix) 40 mg DAILYAC PO ; Start 07/29/19 at 09:00 Oxybutynin Chloride (Ditropan) 5 mg DAILY PO ; Start 07/29/19 at 09:00 Ceftriaxone Sodium (Rocephin) 1 gm Q24H IVP Last administered on 07/31/19at 22:06; Start 07/29/19 at 19:00; Stop 07/31/19 at 19:01; Status DC Simvastatin (Zocor) 20 mg HS PO ; Start 07/29/19 at 21:00; Stop 07/30/19 at 09:12; Status DC Aspirin (Richard Aspirin) 325 mg DAILYWBKFT PO ; Start 07/30/19 at 08:00; Stop 07/30/19 at 15:13; Status DC Atorvastatin Calcium (Lipitor) 40 mg QHS PO ; Start 07/30/19 at 21:00 Aspirin (Aspirin Rectal Supp) 300 mg DAILY VT Last administered on 08/03/19at 13:39; Start 07/30/19 at 15:30 Amino Acids/ Glycerin/ Electrolytes 1,000 ml @ 80 mls/hr [id number] IV Last administered on 08/03/19at 22:00; Start 07/31/19 at 13:00 Barium Sulfate (Varibar Thin Liquid Apple) 148 gm 1X ONCE PO Last administered on 08/03/19at 14:00; Start 08/03/19 at 14:00; Stop 08/03/19 at 14:01; Status DC Cefazolin Sodium 1 gm/Dextrose 100 ml @ 200 mls/hr 1X PREOP ONCE IV ; Start 08/04/19 at 09:00; Stop 08/04/19 at 09:29; Status UNV Cefazolin Sodium 50 ml @ 100 mls/hr 1X PREOP PRN IV PRIOR TO PROCEDURE Last administered on 08/04/19at 08:55; Start 08/04/19 at 09:00; Stop 08/04/19 at 09:01; Status DC Ringer's Solution 1,000 ml @ 75 mls/hr 1X ONCE IV Last administered on 08/04/19at 08:00; Start 08/04/19 at 08:00; Stop 08/04/19 at 21:19 Ringer's Solution 1,000 ml @ 50 mls/hr Q20H IV ; Start 08/04/19 at 08:17; Stop 08/04/19 at 20:16 Morphine Sulfate (Morphine Sulfate) 1 mg PRN Q2HR PRN IV PAIN; Start 08/04/19 at 08:45 Propofol 20 ml @ As Directed STK-MED ONCE IV ; Start 08/04/19 at 08:54; Stop 08/04/19 at 08:54; Status DC Lidocaine HCl (Lidocaine Pf 2% Vial) 5 ml STK-MED ONCE .ROUTE ; Start 08/04/19 at 08:54; Stop 08/04/19 at 08:54; Status DC Active Scripts Active Culturelle (Lactobacillus Rhamnosus Gg) 1 Each Cap.sprink 1 Cap PO BID 14 Days Levofloxacin 250 Mg Tablet 250 Mg PO DAILY06 7 Days Reported Tramadol Hcl 50 Mg Tablet 50 Mg PO Q6HRS PRN Ranitidine Hcl 150 Mg Capsule 150 Mg PO BID Paroxetine Hcl 10 Mg Tablet 10 Mg PO DAILY Oxybutynin Chloride Er (Oxybutynin Chloride) 5 Mg Tab.er.24 1 Tab PO DAILY Prilosec Otc (Omeprazole Magnesium) 20 Mg Tablet.dr 2 Tab PO DAILY Meloxicam 7.5 Mg Tablet 1 Tab PO DAILY Carvedilol (Carvedilol) 6.25 Mg Tablet 6.25 Mg PO BIDWMEALS Vitals/I & O Vital Sign - Last 24 Hours 08/03/19 08/03/19 08/03/19 08/03/19 11:33 15:46 17:00 19:00 Temp 97.8 97.6 97.9 97.8 97.6 97.9 Pulse 68 74 67 Resp 16 18 15 B/P (MAP) 119/47 (71) 155/58 (90) 145/64 (91) Pulse Ox 95 95 94 O2 Delivery Room Air Room Air Room Air Room Air 08/03/19 08/04/19 08/04/19 08/04/19 22:46 02:34 07:00 07:55 Temp 98.5 97.9 97.6 98.5 97.9 97.6 Pulse 71 67 65 Resp 14 16 16 B/P (MAP) 115/56 (75) 137/51 (79) 132/46 (74) Pulse Ox 94 94 32 O2 Delivery Room Air Room Air Room Air Room Air 08/04/19 08/04/19 08/04/19/8/19 07:56 09:11 09:21 09:33 Temp 97.0 97.0 97.0 97.0 97.0 97.0 97.0 97.0 Pulse 68 70 70 65 Resp 18 20 20 20 B/P (MAP) 131/72 121/60 124/73 Pulse Ox 92 99 97 96 O2 Delivery Room Air Room Air Room Air O2 Flow Rate 2 08/04/19 10:41 Temp 97.8 97.8 Pulse 70 Resp 16 B/P (MAP) 148/61 (90) Pulse Ox 94 O2 Delivery Room Air Intake and Output 08/03/19 08/03/19 08/04/19 15:00 23:00 07:00 Intake Total 1000 ml 0 ml Balance 1000 ml 0 ml Nutrition Consultation Dietary Evaluation: Recommendations by RD: Dietary education by RD, PPN/TPN Comments: REC continue PPN for short term nutrition at this time Expected Outcomes/Goals: comfort care ? palliative care following Malnutrition Findings: Body Fat Depletion (Non Severe: Mod to Severe Weight Status: Appropriate GALDINO LÓPEZ MD Aug 04, 2019 10:51
[2019-08-04] MEDS ORDERED: IOHEXOL 300 MG/ML 100ML VIAL. IV ONE (11:00)
[2019-08-04] MEDS ORDERED: CONTRAST GIVEN. MC PRN (11:00)
--- NOTE | 2019-08-04 12:31 | RAD ---
CT CHEST ABDOMEN W/CONTRAST History: Hiatal hernia Technique: CT of the chest and abdomen was performed with contrast. Coronal and sagittal reconstructions were performed. Exposure: One or more of the following individualized dose reduction techniques were utilized for this examination: 1. Automated exposure control 2. Adjustment of the mA and/or kV according to patient size 3. Use of iterative reconstruction technique. Comparison: None Findings: Chest: Small thyroid nodules largest on the right measures 0.9 x 0.9 cm. No pathologic axillary, mediastinal or hilar adenopathy. Calcified mediastinal lymph nodes and calcified right upper lobe granuloma likely related to prior granulomatous disease. No consolidation or pleural effusion. No pulmonary embolism. No aortic aneurysm or dissection. Large hiatal hernia with organoaxial rotation of the stomach. No evidence of obstruction. Abdomen: The spleen, liver, and adrenal glands are unremarkable. Contracted gallbladder. Fatty atrophy of the pancreas. No biliary ductal dilatation. Patent portal veins and hepatic veins. Right renal hypodensity, likely cyst. No hydronephrosis. No intrarenal calculi. Contrast noted within the colon from recent swallow study. Bones: No pathologic osseous lesions. Multilevel lumbar spondylosis. Chronic right posterior rib fractures. Impression: 1. Large hiatal hernia. 2. Small thyroid nodules. Electronically signed by: Yaniv Isabel DO (08/04/2019 12:28 PM) [facility]
--- NOTE | 2019-08-04 13:00 | CONS ---
DATE OF CONSULTATION: 08/04/2019 REQUESTING PHYSICIAN: Dr. Sloan. REASON FOR CONSULTATION: Blood culture positive and urinary tract infection. HISTORY OF PRESENT ILLNESS: This is an 88-year-old female who was admitted for change in mental status. Apparently also after having a fall, the patient was found to have acute cerebrovascular accident. She did get TPA. The patient had a blood culture positive and urine culture positive hence consultation. She failed swallow evaluation and attempted PEG tube was unsuccessful. The patient is alert, awake. The patient denies any complaints. She denies any nausea, vomiting, diarrhea. Denies any chest pain, shortness of breath, abdominal pain. She says she feels okay. PAST MEDICAL HISTORY: Positive for right-sided CVA, osteoarthritis, frequent falls, cataract surgery, cardiac disorders, gastroesophageal reflux disease, and anxiety disorder. SOCIAL HISTORY: Negative for smoking, alcohol or drug use. The patient is taken care of by a friend. CURRENT MEDICATIONS: Reviewed. REVIEW OF SYSTEMS: As per HPI, all other systems reviewed are negative. PHYSICAL EXAMINATION: GENERAL: Alert, oriented female, not in distress. VITAL SIGNS: Stable, afebrile. HEENT: NAD. NECK: Supple, no JVP, no lymphadenopathy. LUNGS: Clear. HEART: S1, S2 regular. ABDOMEN: Benign. EXTREMITIES: No edema, cyanosis. SKIN: Unremarkable. The patient has a right-sided CVA with flaccid paralysis. LABORATORY DATA: White count is normal. BUN and creatinine is normal. Urinalysis did not show any signs of infection. Blood culture 1/4 is positive with Staphylococcus haemolyticus and the urine culture is positive with Escherichia coli. Chest x-ray, CT of the neck, KUB all reviewed. IMPRESSION: 1. Blood culture positive. Staphylococcal haemolyticus /4 is a contaminant. 2. Urine culture with Escherichia coli, although urinalysis was negative and in either case, she was treated with antibiotics. 3. Right-sided cerebrovascular accident. 4. Dysphagia. 5. Hiatal hernia. RECOMMENDATIONS: The patient does not need any antibiotics. Supportive care and the patient can be discharged from the infectious disease standpoint of view to the rehab. Thank you very much, Dr. Sloan, for giving me the opportunity to participate in this patient's care. LUIS BURGOS MD DR: ROXANA/natalya JOB#: [id number] / [id number]
--- NOTE | 2019-08-04 14:53 | PDOC ---
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 Acute several small subcentimeter bilateral cortical based acute ischemic infarcts involving the parasagittal posterior frontal lobes and parietal lobes in the anterior cerebral artery territories. Aphasia on 07/28/19 s/p TPA. Right side weakness. Metabolic encephalopathy. Confusion. HTN. DM. 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 RECOMMENDATIONS/PLAN: TPA administrated on 07/28/19. ASA 325 mg daily, changed to 300 mg rectal due to not able to swallow. Statin HS. Consulted Vascular Surgery. Palliative care team consulted. PEG issues. OT/PT. Rehab. Discussed with her [id number] at bedside before. History of Present Illness This is an 88-year-old female patient with above medical diseases has not been feeling well in [facility] past 3 days described as tiredness and weakness in one side sometime and other side other times then the entire body. She had a fall at home. EMS was called for altered mental status associated with the fall. However upon further discussion patient has had fall a few days ago with bruising to left side of her head. Patient was initially alert and oriented 3. She follows commands appropriately. NIH of 3 however non-unilateral deficit. While in [facility] ER, she was noted to have new symptoms of aphasia and her NIH score became 6. She was thought to have acute CVA and TPA was offered to her after all criteria were met. Her CTA showed high grade stenosis and occlusion of left ICA. 08/03/19: Mental status improved in some degree, but still encephalopathic. Past Medical History Cardiovascular: HTN Pulmonary: No pertinent hx CENTRAL NERVOUS SYSTEM: CVA GI: GERD Heme/Onc: No pertinent hx Hepatobiliary: No pertinent hx Musculoskeletal: Osteoarthritis Rheumatologic: No pertinent hx Infectious disease: No pertinent hx ENT: No pertinent hx Renal/: No pertinent hx, UTI Endocrine: No pertinent hx Dermatology: No pertinent hx Past Surgical History No major surgery recently. Family History Heart Disease ALLERGY: NKDA MEDICATIONS: Refer to [facility] SOCIAL HISTORY: Denies current smoking, drinking, and illicit drug use. REVIEW OF SYSTEMS: Constitutional: No malnutrition, weight loss, cachexia. Head: No traumatic brain or head injury. Skin: No edema, or rash. Ear: No infection, tinnitus. Eyes: No vision loss or color blindness. Nose: No bleeding or purulent discharges. Hearing: Hearing decrease. Neck: No injury. Breast: No history of cancer, masses,or discharges. Cardiac: HTN. Pulmonary: No COPD. GI: GERD. Urinary/genital: UTI. Endocrinologic: Diabetes Mellitus. Skeletomuscular: Generalized weakness. Neurological: see HP. Psychiatric: Denies drug use/abuse. Otherwise, not [id number] review of systems. PHYSICAL EXAMINATION: General appearance is in subacute distress. HEENT: Normocephalic and nontraumatic. Eyes, nose, ears, and throat are unremarkable. Neck is supple. No lymphadenopathy. No crepitus. Cardiovascular: S1, S2, regular rate and rhythm. Pulmonary: mildly decreased to auscultation bilaterally. Abdomen: Bowel sounds are positive. Extremities: No rash, lesions, or edema. Restriction of range of motion in right UE. NEUROLOGICAL EXAMINATION: Awake form time to time. Not oriented to time, place but knew person. PERRL. EOMI. CN: Right side VII palsy. Muscle tone: Decreased in right side. Muscle strength: 1-2 right UE and 3 LE. 5- left side. DTR: 1-2 Plantar reflex: weak extensor response in right side. Gait: not able to walk. Sensory exam: Decreased in right UE. No other acute cerebellar signs. F-T-N test fine left side. Objective Objective Vital Signs Date Time Temp Pulse Resp B/P (MAP) Pulse Ox O2 Delivery O2 Flow Rate FiO2 08/04/19 10:41 97.8 70 16 148/61 (90) 94 Room Air 97.8 08/04/19 09:11 2 Intake and Output 08/04/19 07:00 Intake Total 1000 ml Balance 1000 ml Intake Oral 0 ml IV Total 1000 ml # Voids 1 Vitals Signs Vitals VS - Last 72 Hours, by Label Date Time Temp Pulse Resp B/P (MAP) Pulse Ox O2 Delivery O2 Flow Rate FiO2 08/04/19 10:41 97.8 70 16 148/61 (90) 94 Room Air 97.8 08/04/19 09:33 97.0 65 20 124/73 96 Room Air 97.0 08/04/19 09:21 97.0 70 20 121/60 97 Room Air 97.0 08/04/19 09:11 97.0 70 20 131/72 99 Room Air 2 97.0 08/04/19 07:56 97.0 68 18 92 97.0 08/04/19 07:55 Room Air 08/04/19 07:45 Room Air 08/04/19 07:00 97.6 65 16 132/46 (74) 32 Room Air 97.6 08/04/19 02:34 97.9 67 16 137/51 (79) 94 Room Air 97.9 08/03/19 22:46 98.5 71 14 115/56 (75) 94 Room Air 98.5 08/03/19 19:00 97.9 67 15 145/64 (91) 94 Room Air 97.9 08/03/19 17:00 Room Air 08/03/19 15:46 97.6 74 18 155/58 (90) 95 Room Air 97.6 08/03/19 11:33 97.8 68 16 119/47 (71) 95 Room Air 97.8 08/03/19 08:00 Room Air 08/03/19 08:00 70 162/54 08/03/19 07:53 97.9 70 16 162/54 (90) 95 Room Air 97.9 Laboratory Laboratory Laboratory Tests Test 08/04/19 04:23 Prothrombin Time 13.6 SEC (11.7-14.0) Prothromb Time International Ratio 1.1 (0.8-1.1) Microbiology 07/29/19 Blood Culture - Final, Complete NO GROWTH AFTER 5 DAYS 07/28/19 Urine Culture - Final, Complete 07/28/19 Urine Culture Result 1 (ANTONIETA) - Final, Complete 07/28/19 Antimicrobic Susceptibility - Final, Complete Medication Medications Current Medications Cefazolin Sodium 50 ml @ 100 mls/hr 1X PREOP PRN IV PRIOR TO PROCEDURE Last administered on 08/04/19at 08:55; Start 08/04/19 at 09:00; Stop 08/04/19 at 09:01; Status DC Cefazolin Sodium 1 gm/Dextrose 100 ml @ 200 mls/hr 1X PREOP ONCE IV ; Start 08/04/19 at 09:00; Stop 08/04/19 at 09:29; Status UNV Info (CONTRAST GIVEN -- Rx MONITORING) 1 each PRN DAILY PRN MC SEE COMMENTS; Start 08/04/19 at 11:00; Stop 08/06/19 at 10:59 Iohexol (Omnipaque 300 Mg/ml) 75 ml 1X ONCE IV Last administered on 08/04/19at 11:48; Start 08/04/19 at 11:00; Stop 08/04/19 at 11:01; Status DC Lidocaine HCl (Lidocaine Pf 2% Vial) 5 ml STK-MED ONCE .ROUTE ; Start 08/04/19 at 08:54; Stop 08/04/19 at 08:54; Status DC Morphine Sulfate (Morphine Sulfate) 1 mg PRN Q2HR PRN IV PAIN; Start 08/04/19 at 08:45 Propofol 20 ml @ As Directed STK-MED ONCE IV ; Start 08/04/19 at 08:54; Stop 08/04/19 at 08:54; Status DC Ringer's Solution 1,000 ml @ 50 mls/hr Q20H IV ; Start 08/04/19 at 08:17; Stop 08/04/19 at 20:16 Ringer's Solution 1,000 ml @ 75 mls/hr 1X ONCE IV Last administered on 08/04/19at 08:00; Start 08/04/19 at 08:00; Stop 08/04/19 at 21:19 Comment Review of Relevant I have reviewed the following items shannan (where applicable) has been applied. JACQUE WINKLER MD Aug 04, 2019 14:53
[2019-08-04 15:00] VITALS: BP 142/60
[2019-08-04] MEDS: AMINO AC 3%/ELECTROLYTE/GLYCER 1,000 ML IV SCH (18:12)
[2019-08-04 19:00] VITALS: BP 139/50
[2019-08-04] MEDS: ATORVASTATIN CALCIUM 40 MG TABLET. PO SCH (19:52)
[2019-08-04] MEDS: MORPHINE SULFATE 2 MG/ML VIAL. IV PRN (20:04)
[2019-08-04] MEDS: diphenhydrAMINE 50 MG/ML VIAL IVP PRN (22:03)
[2019-08-04 22:39] VITALS: BP 142/43
[2019-08-05] MEDS: MORPHINE SULFATE 2 MG/ML VIAL. IV PRN ×2 (03:09→18:05)
[2019-08-05 03:12] VITALS: BP 129/52
[2019-08-05] MEDS: AMINO AC 3%/ELECTROLYTE/GLYCER 1,000 ML IV SCH ×2 (05:58→18:16)
[2019-08-05] MEDS: PANTOPRAZOLE 40 MG TABLET.DR. PO SCH (07:30)
[2019-08-05] MEDS: CARVEDILOL 6.25 MG TABLET. PO SCH ×2 (07:50→17:00)
[2019-08-05] MEDS: ASPIRIN RECTAL 300 MG SUPP. PR SCH ×2 (07:50→12:16)
[2019-08-05] MEDS: OXYBUTYNIN CHLORIDE 5 MG TABLET PO SCH (07:50)
[2019-08-05] MEDS: PARoxetine 10 MG TABLET PO SCH (07:50)
[2019-08-05 07:59] VITALS: BP 125/49
[2019-08-05] MEDS ORDERED: HALOPERIDOL LACTATE 5 MG/ML VIAL. IVP PRN (08:15)
--- NOTE | 2019-08-05 09:08 | PDOC ---
ACE NÚÑEZ [employer] MAN 08/05/19 0908: SURGICAL PROGRESS NOTE Subjective resting no complaints Vital Signs Vital Signs Date Time Temp Pulse Resp B/P (MAP) Pulse Ox O2 Delivery O2 Flow Rate FiO2 08/05/19 07:59 97.6 82 20 125/49 (74) 97 Room Air 97.6 08/04/19 09:11 2 I&O Intake and Output 08/05/19 07:00 Intake Total 2400 ml Output Total 300 ml Balance 2100 ml IV Total 2400 ml Output Urine Total 300 ml # Voids 1 # Bowel Movements 2 General: Other (frail) Abdomen: Soft Labs Laboratory Tests Test 08/04/19 04:23 Prothrombin Time 13.6 SEC (11.7-14.0) Prothromb Time International Ratio 1.1 (0.8-1.1) Problem List Problems Medical Problems: (1) Acute CVA (cerebrovascular accident) Status: Acute (2) Acute encephalopathy Status: Acute (3) CLAY (acute kidney injury) Status: Acute (4) Altered mental status Status: Acute (5) Aphasia Status: Acute (6) Confusion Status: Chronic (7) DM (diabetes mellitus) Status: Chronic (8) Fall Status: Acute (9) HTN (hypertension) Status: Chronic (10) Metabolic encephalopathy Status: Acute (11) Occlusion of left internal carotid artery Status: Acute (12) Old cerebrovascular accident (CVA) without late effect Status: Acute (13) Right sided weakness Status: Acute (14) UTI (urinary tract infection) Status: Acute Assessment/Plan ct showing large hh with organoaxial rotation of stomach not sure a candidate for g tube--will review with ANDREW Carvalho MD 08/05/19 1830: SURGICAL PROGRESS NOTE Assessment/Plan Patient seen and examined somewhat confused resting comfortably in bed. Reviewed CT scan showing hiatal hernia with most of the stomach within the chest with difficult to place gastrostomy tube potentially placed jejunostomy tube if needed although she high surgical risk for postoperative complications and poor healing. Family not present at this time we'll consult with family to discuss risks benefits and options. ACE NÚÑEZ Marina GONZALEZN Aug 05, 2019 09:08 ANDREW COELHO MD Aug 05, 2019 18:30
--- NOTE | 2019-08-05 09:11 | PDOC ---
PROGRESS NOTES Chief Complaint Chief Complaint Acute CVA - s/p tPA, was admitted to ICU, Acute metabolic and toxic encephalopathy CVA syndrome + UTI. E coli UTi with some resistance Staph bacteremia Aphasia improving, Right side weakness. 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 Gen weakness - [facility] on the [facility] Dysphagia persistent HUge hiatal hernia, precluded so and PEG DNR History of Present Illness History of Present Illness transferred from ICU post TPA for CVA Our main issue now is feeding and weaknes SLated for SNU fails swallow, NPO strict BUT LARGE COILED HIATAL HERNIA PRECLUDES SO< PEG AND G TUBE - DW GI , GS Sunday 08/05 (attempted PEG wednesday, - technical difficulties) PPN running SOme confusion DNR ID involved, staph is contaminant 1/4 bottles E coli treated - so ff abx now SOme confusion PLAN: Dr Santizo to see pt later Otherwise TPN PICC, has been on procalamine x 5 days now maybe Will get consent from family Juan so far holding DNR HAldol prn Vitals Vitals Vital Signs Date Time Temp Pulse Resp B/P (MAP) Pulse Ox O2 Delivery O2 Flow Rate FiO2 08/05/19 07:59 97.6 82 20 125/49 (74) 97 Room Air 97.6 08/04/19 09:11 2 Physical Exam General: Cooperative, No acute distress Heart: Regular rate, Normal S1, Normal S2 Lungs: Clear Abdomen: Soft, No tenderness Extremities: No clubbing, No cyanosis Skin: No rashes, No breakdown, No significant lesion Review of Systems Review of Systems dementia, limited rOS Assessment and Plan Assessmemt and Plan Problems Medical Problems: (1) Acute CVA (cerebrovascular accident) Status: Acute (2) Acute encephalopathy Status: Acute (3) CLAY (acute kidney injury) Status: Acute (4) Altered mental status Status: Acute (5) Aphasia Status: Acute (6) Confusion Status: Chronic (7) DM (diabetes mellitus) Status: Chronic (8) Fall Status: Acute (9) HTN (hypertension) Status: Chronic (10) Metabolic encephalopathy Status: Acute (11) 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 Labs Laboratory Tests Test 08/04/19 04:23 Prothrombin Time 13.6 SEC (11.7-14.0) Prothromb Time International Ratio 1.1 (0.8-1.1) Microbiology 07/29/19 Blood Culture - Final, Complete NO GROWTH AFTER 5 DAYS 07/28/19 Urine Culture - Final, Complete 07/28/19 Urine Culture Result 1 (ANTONIETA) - Final, Complete 07/28/19 Antimicrobic Susceptibility - Final, Complete Medications Current Medications Ketorolac Tromethamine (Toradol 30mg Vial) 30 mg 1X ONCE IV Last administered on 07/28/19at 23:38; Start 07/28/19 at 23:30; Stop 07/28/19 at 23:31; Status DC Ceftriaxone Sodium (Rocephin) 1 gm 1X ONCE IVP Last administered on 07/29/19at 00:53; Start 07/28/19 at 23:45; Stop 07/28/19 at 23:46; Status DC Ondansetron HCl (Zofran) 4 mg PRN Q8HRS PRN IV NAUSEA/VOMITING; Start 07/29/19 at 00:00; Stop 07/29/19 at 08:42; Status DC Acetaminophen (Tylenol) 650 mg PRN Q4HRS PRN PO FEVER; Start 07/29/19 at 00:00; Stop 07/29/19 at 08:42; Status DC Alteplase, Recombinant 0 ml @ 0 mls/hr 1X ONCE IV ; Start 07/29/19 at 00:45; Stop 07/29/19 at 00:46; Status UNV Alteplase, Recombinant 0 ml @ 0 mls/hr Q1H IV ; Start 07/29/19 at 00:45; Stop 07/29/19 at 00:46; Status UNV Sodium Chloride 50 ml @ 0 mls/hr 1X ONCE IV ; Start 07/29/19 at 00:45; Stop 07/29/19 at 00:46; Status UNV Labetalol HCl (Normodyne Iv Push) 10 mg PRN Q10MIN PRN IVP HYPERTENSION; Start 07/29/19 at 00:45; Status UNV Nicardipine HCl 50 mg/Sodium Chloride 250 ml @ 25 mls/hr CONT PRN PRN IV HYPERTENSION; Start 07/29/19 at 00:45; Status UNV Labetalol HCl (Normodyne Iv Push) 10 mg PRN Q10MIN PRN IVP HYPERTENSION Last administered on 07/29/19at 14:06; Start 07/29/19 at 00:45 Nicardipine HCl 50 mg/Sodium Chloride 250 ml @ 25 mls/hr CONT PRN PRN IV HYPERTENSION; Start 07/29/19 at 00:45; Stop 07/31/19 at 17:20; Status DC Acetaminophen (Tylenol) 650 mg PRN Q6HRS PRN PO MILD PAIN / TEMP; Start 07/29/19 at 00:45 Acetaminophen (Tylenol Supp) 325 mg PRN Q6HRS PRN NC MILD PAIN / TEMP Last administered on 08/04/19at 00:11; Start 07/29/19 at 00:45 Ondansetron HCl (Zofran) 4 mg PRN Q6HRS PRN IV NAUSEA/VOMITING; Start 07/29/19 at 00:45 Alteplase, Recombinant 5.7 ml @ 342 mls/hr 1X ONCE IV Last administered on 07/29/19at 01:00; Start 07/29/19 at 01:00; Stop 07/29/19 at 01:01; Status DC Alteplase, Recombinant 51 ml @ 51 mls/hr Q1H IV Last administered on 07/29/19at 01:08; Start 07/29/19 at 01:00; Stop 07/29/19 at 01:59; Status DC Sodium Chloride 50 ml @ 200 mls/hr 1X ONCE IV Last administered on 07/29/19at 01:04; Start 07/29/19 at 01:00; Stop 07/29/19 at 01:14; Status DC Iohexol (Omnipaque 300 Mg/ml) 50 ml 1X ONCE IV Last administered on 07/29/19at 01:34; Start 07/29/19 at 01:15; Stop 07/29/19 at 01:16; Status DC Info (CONTRAST GIVEN -- Rx MONITORING) 1 each PRN DAILY PRN MC SEE COMMENTS; Start 07/29/19 at 01:15; Stop 07/31/19 at 01:14; Status DC Carvedilol (Coreg) 6.25 mg BIDWMEALS PO ; Start 07/29/19 at 09:00 Paroxetine HCl (Paxil) 10 mg DAILY PO ; Start 07/29/19 at 09:00 Pantoprazole Sodium (Protonix) 40 mg DAILYAC PO ; Start 07/29/19 at 09:00 Oxybutynin Chloride (Ditropan) 5 mg DAILY PO ; Start 07/29/19 at 09:00 Ceftriaxone Sodium (Rocephin) 1 gm Q24H IVP Last administered on 07/31/19at 22:06; Start 07/29/19 at 19:00; Stop 07/31/19 at 19:01; Status DC Simvastatin (Zocor) 20 mg HS PO ; Start 07/29/19 at 21:00; Stop 07/30/19 at 09:12; Status DC Aspirin (Richard Aspirin) 325 mg DAILYWBKFT PO ; Start 07/30/19 at 08:00; Stop 07/30/19 at 15:13; Status DC Atorvastatin Calcium (Lipitor) 40 mg QHS PO ; Start 07/30/19 at 21:00 Aspirin (Aspirin Rectal Supp) 300 mg DAILY NC Last administered on 08/03/19at 13:39; Start 07/30/19 at 15:30 Amino Acids/ Glycerin/ Electrolytes 1,000 ml @ 80 mls/hr [id number] IV Last administered on 08/05/19at 05:58; Start 07/31/19 at 13:00 Barium Sulfate (Varibar Thin Liquid Apple) 148 gm 1X ONCE PO Last administered on 08/03/19at 14:00; Start 08/03/19 at 14:00; Stop 08/03/19 at 14:01; Status DC Cefazolin Sodium 1 gm/Dextrose 100 ml @ 200 mls/hr 1X PREOP ONCE IV ; Start 08/04/19 at 09:00; Stop 08/04/19 at 09:29; Status UNV Cefazolin Sodium 50 ml @ 100 mls/hr 1X PREOP PRN IV PRIOR TO PROCEDURE Last administered on 08/04/19at 08:55; Start 08/04/19 at 09:00; Stop 08/04/19 at 09:01; Status DC Ringer's Solution 1,000 ml @ 75 mls/hr 1X ONCE IV Last administered on 08/04/19at 08:00; Start 08/04/19 at 08:00; Stop 08/04/19 at 21:19; Status DC Ringer's Solution 1,000 ml @ 50 mls/hr Q20H IV ; Start 08/04/19 at 08:17; Stop 08/04/19 at 20:16; Status DC Morphine Sulfate (Morphine Sulfate) 1 mg PRN Q2HR PRN IV PAIN Last administered on 08/05/19at 03:09; Start 08/04/19 at 08:45 Propofol 20 ml @ As Directed STK-MED ONCE IV ; Start 08/04/19 at 08:54; Stop 08/04/19 at 08:54; Status DC Lidocaine HCl (Lidocaine Pf 2% Vial) 5 ml STK-MED ONCE .ROUTE ; Start 08/04/19 at 08:54; Stop 08/04/19 at 08:54; Status DC Iohexol (Omnipaque 300 Mg/ml) 75 ml 1X ONCE IV Last administered on 08/04/19at 11:48; Start 08/04/19 at 11:00; Stop 08/04/19 at 11:01; Status DC Info (CONTRAST GIVEN -- Rx MONITORING) 1 each PRN DAILY PRN MC SEE COMMENTS; Start 08/04/19 at 11:00; Stop 08/06/19 at 10:59 Diphenhydramine HCl (Benadryl) 25 mg PRN Q6HRS PRN IVP ITCHING Last administered on 08/04/19at 22:03; Start 08/04/19 at 22:00 Haloperidol Lactate (Haldol Inj) 5 mg PRN Q6HRS PRN IVP AGITATION; Start 08/05/19 at 08:15 Active Scripts Active Culturelle (Lactobacillus Rhamnosus Gg) 1 Each Cap.sprink 1 Cap PO BID 14 Days Reported Tramadol Hcl 50 Mg Tablet 50 Mg PO Q6HRS PRN Ranitidine Hcl 150 Mg Capsule 150 Mg PO BID Paroxetine Hcl 10 Mg Tablet 10 Mg PO DAILY Oxybutynin Chloride Er (Oxybutynin Chloride) 5 Mg Tab.er.24 1 Tab PO DAILY Prilosec Otc (Omeprazole Magnesium) 20 Mg Tablet.dr 2 Tab PO DAILY Meloxicam 7.5 Mg Tablet 1 Tab PO DAILY Carvedilol (Carvedilol) 6.25 Mg Tablet 6.25 Mg PO BIDWMEALS Vitals/I & O Vital Sign - Last 24 Hours 08/04/19 08/04/19 08/04/19 08/04/19 09:11 09:21 09:33 10:41 Temp 97.0 97.0 97.0 97.8 97.0 97.0 97.0 97.8 Pulse 70 70 65 70 Resp 20 20 20 16 B/P (MAP) 131/72 121/60 124/73 148/61 (90) Pulse Ox 99 97 96 94 O2 Delivery Room Air Room Air Room Air Room Air O2 Flow Rate 2 08/04/19 08/04/19 08/04/19 08/05/19 15:00 19:00 22:39 03:12 Temp 97.8 98.1 98.2 98.1 97.8 98.1 98.2 98.1 Pulse 72 73 82 84 Resp 16 14 16 18 B/P (MAP) 142/60 (87) 139/50 (79) 142/43 (76) 129/52 (77) Pulse Ox 94 93 93 95 O2 Delivery Room Air Room Air Room Air Room Air 08/05/19 07:59 Temp 97.6 97.6 Pulse 82 Resp 20 B/P (MAP) 125/49 (74) Pulse Ox 97 O2 Delivery Room Air Intake and Output 08/04/19 08/04/19 08/05/19 15:00 23:00 07:00 Intake Total 400 ml 1000 ml 1000 ml Output Total 300 ml Balance 400 ml 1000 ml 700 ml Nutrition Consultation Dietary Evaluation: Recommendations by RD: Dietary education by RD, PPN/TPN Comments: REC continue PPN for short term nutrition at this time Expected Outcomes/Goals: comfort care ? palliative care following Malnutrition Findings: Body Fat Depletion (Non Severe: Mod to Severe Weight Status: Appropriate GALDINO LÓPEZ MD Aug 05, 2019 09:11
[2019-08-05 11:00] VITALS: BP 120/57
[2019-08-05 12:17] LABS: CALCIUM 8.8 mg/dL (8.5-10.1); CREATININE 0.9 mg/dL (0.6-1.0); GFR 59.4; POTASSIUM 4.4 mmol/L (3.5-5.1)
[2019-08-05 12:20] LABS: MAGNESIUM 1.8 mg/dL (1.8-2.4); PHOSPHORUS 3.8 mg/dL (2.6-4.7)
[2019-08-05] MEDS: TPN PER PHARMACY MC PRN (12:35)
--- NOTE | 2019-08-05 13:44 | RAD ---
PORTABLE CHEST 1V 08/05/2019 12:45 PM INDICATION: PICC placement COMPARISON: CT chest and abdomen 08/04/2019 TECHNIQUE: Portable frontal view of the chest is provided. FINDINGS: The cardiomediastinal silhouette is similar in appearance. Left upper extremity PICC is identified with the distal tip projecting over the cavoatrial junction. Moderate-sized hiatal hernia. Biapical pleural-parenchymal scarring. There are no significant pleural effusions. There is no pulmonary vascular congestion. No pneumothorax. IMPRESSION: Left upper extremity PICC is identified with the distal tip projecting over the cavoatrial junction. No pneumothorax. Electronically signed by: Rufina Madera MD (08/05/2019 1:41 PM) [facility]
[2019-08-05 15:00] VITALS: BP 125/50
[2019-08-05 19:00] VITALS: BP 163/77
[2019-08-05] MEDS ORDERED: TOTAL PARENTERAL NUTRITION 1,424.9987 ML, AMINO ACID 15% 60 GM, DEXTROSE 70 % IN WATER ... IV SCH ×10 (22:00)
[2019-08-05 23:00] VITALS: BP 139/58
[2019-08-05] MEDS: diphenhydrAMINE 50 MG/ML VIAL IVP PRN (23:52)
[2019-08-06 03:27] VITALS: BP 130/45
[2019-08-06 07:00] VITALS: BP 149/51
[2019-08-06 07:02] LABS: CALCIUM 8.8 mg/dL (8.5-10.1); CREATININE 0.8 mg/dL (0.6-1.0); MAGNESIUM 1.9 mg/dL (1.8-2.4); PHOSPHORUS 3.6 mg/dL (2.6-4.7); POTASSIUM 4.4 mmol/L (3.5-5.1)
[2019-08-06] MEDS: PANTOPRAZOLE 40 MG TABLET.DR. PO SCH ×2 (07:30→08:03)
[2019-08-06] MEDS: diphenhydrAMINE 50 MG/ML VIAL IVP PRN ×2 (07:56→18:15)
[2019-08-06] MEDS: MORPHINE SULFATE 2 MG/ML VIAL. IV PRN (07:57)
[2019-08-06] MEDS: CARVEDILOL 6.25 MG TABLET. PO SCH ×2 (08:00→10:38)
[2019-08-06] MEDS: ASPIRIN RECTAL 300 MG SUPP. PR SCH (08:02)
[2019-08-06] MEDS: PARoxetine 10 MG TABLET PO SCH (08:03)
[2019-08-06] MEDS: OXYBUTYNIN CHLORIDE 5 MG TABLET PO SCH (08:03)
--- NOTE | 2019-08-06 08:40 | PDOC ---
ACE NÚÑEZ MEDICAL PLANNER 08/06/19 0840: SURGICAL PROGRESS NOTE Subjective moans restless in bed Vital Signs Vital Signs Date Time Temp Pulse Resp B/P (MAP) Pulse Ox O2 Delivery O2 Flow Rate FiO2 08/06/19 08:27 22 Room Air 08/06/19 07:57 91 2.0 08/06/19 07:00 98.0 79 149/51 (83) 98.0 I&O Intake and Output 08/06/19 07:00 Intake Total 280 ml Balance 280 ml Intake Oral 0 ml IV Total 280 ml # Voids 4 General: Other (confusion) Abdomen: Soft Labs Laboratory Tests Test 08/05/19 11:23 08/06/19 06:40 Sodium Level 137 mmol/L (136-145) 138 mmol/L (136-145) Potassium Level 4.4 mmol/L (3.5-5.1) 4.4 mmol/L (3.5-5.1) Chloride Level 102 mmol/L (98-107) 104 mmol/L (98-107) Carbon Dioxide Level 24 mmol/L (21-32) 22 mmol/L (21-32) Anion Gap 11 (6-14) 12 (6-14) Blood Urea Nitrogen 34 mg/dL (7-20) 32 mg/dL (7-20) Creatinine 0.9 mg/dL (0.6-1.0) 0.8 mg/dL (0.6-1.0) Estimated GFR (Cockcroft-Gault) 59.4 68.0 Glucose Level 146 mg/dL (70-99) 144 mg/dL (70-99) Calcium Level 8.8 mg/dL (8.5-10.1) 8.8 mg/dL (8.5-10.1) Phosphorus Level 3.8 mg/dL (2.6-4.7) 3.6 mg/dL (2.6-4.7) Magnesium Level 1.8 mg/dL (1.8-2.4) 1.9 mg/dL (1.8-2.4) Laboratory Tests Test 08/05/19 11:23 08/06/19 06:40 Sodium Level 137 mmol/L (136-145) 138 mmol/L (136-145) Potassium Level 4.4 mmol/L (3.5-5.1) 4.4 mmol/L (3.5-5.1) Chloride Level 102 mmol/L (98-107) 104 mmol/L (98-107) Carbon Dioxide Level 24 mmol/L (21-32) 22 mmol/L (21-32) Anion Gap 11 (6-14) 12 (6-14) Blood Urea Nitrogen 34 mg/dL (7-20) 32 mg/dL (7-20) Creatinine 0.9 mg/dL (0.6-1.0) 0.8 mg/dL (0.6-1.0) Estimated GFR (Cockcroft-Gault) 59.4 68.0 Glucose Level 146 mg/dL (70-99) 144 mg/dL (70-99) Calcium Level 8.8 mg/dL (8.5-10.1) 8.8 mg/dL (8.5-10.1) Phosphorus Level 3.8 mg/dL (2.6-4.7) 3.6 mg/dL (2.6-4.7) Magnesium Level 1.8 mg/dL (1.8-2.4) 1.9 mg/dL (1.8-2.4) Problem List Problems Medical Problems: (1) Acute CVA (cerebrovascular accident) Status: Acute (2) Acute encephalopathy Status: Acute (3) CLAY (acute kidney injury) Status: Acute (4) Altered mental status Status: Acute (5) Aphasia Status: Acute (6) Confusion Status: Chronic (7) DM (diabetes mellitus) Status: Chronic (8) Fall Status: Acute (9) HTN (hypertension) Status: Chronic (10) Metabolic encephalopathy Status: Acute (11) Occlusion of left internal carotid artery Status: Acute (12) Old cerebrovascular accident (CVA) without late effect Status: Acute (13) Right sided weakness Status: Acute (14) UTI (urinary tract infection) Status: Acute Assessment/Plan no family present currently, need to discuss plan of care ANDREW COELHO MD 08/06/19 1231: SURGICAL PROGRESS NOTE Assessment/Plan No acute changes. Agree with Tyron assessment and plan follow-up with palliative care on plan of care ACE NÚÑEZ APRN Aug 06, 2019 08:40 ANDREW COELHO MD Aug 06, 2019 12:31
[2019-08-06] MEDS: TPN PER PHARMACY MC PRN (09:21)
--- NOTE | 2019-08-06 10:58 | PDOC ---
PROGRESS NOTES Chief Complaint Chief Complaint Acute CVA - s/p tPA, was admitted to ICU, Acute metabolic and toxic encephalopathy CVA syndrome + UTI. E coli UTi with some resistance Staph bacteremia Aphasia improving, Right side weakness. 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 Gen weakness - [facility] on the [facility] Dysphagia persistent HUge hiatal hernia, precluded so and PEG DNR ACUTE DIFFUSE MACULOPAPULAR RASH , PRURITIC - HYPERSENSITIVITY REACTION? - 08/05/19 History of Present Illness History of Present Illness transferred from ICU post TPA for CVA Still dysphagia, HUGE hiatal hernia, failed attempted so and pEG (Peg attempted 11.8) SO no w PICC inserted 08/05 and tpn BUT NOW diffuse maculopapular rash, pruritic, mostly on anterior chest , belly back ONLY NEW MED STARTED WAS TPN NOT ALLERGIC TO NUTS (lipid component TPN - dw Pharmacist Soniya) GEtting benadryl IV ALlergy only listed is to ancef, and NOT on abx EARLIERENTRY ID involved, staph is contaminant 1/4 bottles E coli treated - so ff abx now SOme confusion PLAN: TPN,, PICC Add solu medrol MOnitor this rash PAlliative to meet with family (leni son- i spoke to on wednesday via phone) Goals of care letty only certain SNU can take TPN I would screen for pplace - tpn (Sw pls) Otherwise TPN PICC, has been on procalamine x 5 days approx solu and benadryl dw TEO [place] so far holding DNR HAldol prn Vitals Vitals Vital Signs Date Time Temp Pulse Resp B/P (MAP) Pulse Ox O2 Delivery O2 Flow Rate FiO2 08/06/19 08:27 22 Room Air 08/06/19 07:57 91 2.0 08/06/19 07:00 98.0 79 149/51 (83) 98.0 Physical Exam General: Other (confusion) Heart: Regular rate, Normal S1, Normal S2 Lungs: Clear Abdomen: Soft Extremities: No clubbing, No cyanosis Skin: No rashes, No breakdown, No significant lesion Labs LABS Laboratory Tests Test 08/05/19 11:23 08/06/19 06:40 Sodium Level 137 mmol/L (136-145) 138 mmol/L (136-145) Potassium Level 4.4 mmol/L (3.5-5.1) 4.4 mmol/L (3.5-5.1) Chloride Level 102 mmol/L (98-107) 104 mmol/L (98-107) Carbon Dioxide Level 24 mmol/L (21-32) 22 mmol/L (21-32) Anion Gap 11 (6-14) 12 (6-14) Blood Urea Nitrogen 34 mg/dL (7-20) 32 mg/dL (7-20) Creatinine 0.9 mg/dL (0.6-1.0) 0.8 mg/dL (0.6-1.0) Estimated GFR (Cockcroft-Gault) 59.4 68.0 Glucose Level 146 mg/dL (70-99) 144 mg/dL (70-99) Calcium Level 8.8 mg/dL (8.5-10.1) 8.8 mg/dL (8.5-10.1) Phosphorus Level 3.8 mg/dL (2.6-4.7) 3.6 mg/dL (2.6-4.7) Magnesium Level 1.8 mg/dL (1.8-2.4) 1.9 mg/dL (1.8-2.4) Review of Systems Review of Systems dementia. limited ROS Assessment and Plan Assessmemt and Plan Problems Medical Problems: (1) Acute CVA (cerebrovascular accident) Status: Acute (2) Acute encephalopathy Status: Acute (3) CLAY (acute kidney injury) Status: Acute (4) Altered mental status Status: Acute (5) Aphasia Status: Acute (6) Confusion Status: Chronic (7) DM (diabetes mellitus) Status: Chronic (8) Fall Status: Acute (9) HTN (hypertension) Status: Chronic (10) Metabolic encephalopathy Status: Acute (11) 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 Labs Laboratory Tests Test 08/05/19 11:23 08/06/19 06:40 Sodium Level 137 mmol/L (136-145) 138 mmol/L (136-145) Potassium Level 4.4 mmol/L (3.5-5.1) 4.4 mmol/L (3.5-5.1) Chloride Level 102 mmol/L (98-107) 104 mmol/L (98-107) Carbon Dioxide Level 24 mmol/L (21-32) 22 mmol/L (21-32) Anion Gap 11 (6-14) 12 (6-14) Blood Urea Nitrogen 34 mg/dL (7-20) 32 mg/dL (7-20) Creatinine 0.9 mg/dL (0.6-1.0) 0.8 mg/dL (0.6-1.0) Estimated GFR (Cockcroft-Gault) 59.4 68.0 Glucose Level 146 mg/dL (70-99) 144 mg/dL (70-99) Calcium Level 8.8 mg/dL (8.5-10.1) 8.8 mg/dL (8.5-10.1) Phosphorus Level 3.8 mg/dL (2.6-4.7) 3.6 mg/dL (2.6-4.7) Magnesium Level 1.8 mg/dL (1.8-2.4) 1.9 mg/dL (1.8-2.4) Laboratory Tests Test 08/05/19 11:23 08/06/19 06:40 Sodium Level 137 mmol/L (136-145) 138 mmol/L (136-145) Potassium Level 4.4 mmol/L (3.5-5.1) 4.4 mmol/L (3.5-5.1) Chloride Level 102 mmol/L (98-107) 104 mmol/L (98-107) Carbon Dioxide Level 24 mmol/L (21-32) 22 mmol/L (21-32) Anion Gap 11 (6-14) 12 (6-14) Blood Urea Nitrogen 34 mg/dL (7-20) 32 mg/dL (7-20) Creatinine 0.9 mg/dL (0.6-1.0) 0.8 mg/dL (0.6-1.0) Estimated GFR (Cockcroft-Gault) 59.4 68.0 Glucose Level 146 mg/dL (70-99) 144 mg/dL (70-99) Calcium Level 8.8 mg/dL (8.5-10.1) 8.8 mg/dL (8.5-10.1) Phosphorus Level 3.8 mg/dL (2.6-4.7) 3.6 mg/dL (2.6-4.7) Magnesium Level 1.8 mg/dL (1.8-2.4) 1.9 mg/dL (1.8-2.4) Microbiology 07/29/19 Blood Culture - Final, Complete NO GROWTH AFTER 5 DAYS 07/28/19 Urine Culture - Final, Complete 07/28/19 Urine Culture Result 1 (ANTONIETA) - Final, Complete 07/28/19 Antimicrobic Susceptibility - Final, Complete Medications Current Medications Ketorolac Tromethamine (Toradol 30mg Vial) 30 mg 1X ONCE IV Last administered on 07/28/19at 23:38; Start 07/28/19 at 23:30; Stop 07/28/19 at 23:31; Status DC Ceftriaxone Sodium (Rocephin) 1 gm 1X ONCE IVP Last administered on 07/29/19at 00:53; Start 07/28/19 at 23:45; Stop 07/28/19 at 23:46; Status DC Ondansetron HCl (Zofran) 4 mg PRN Q8HRS PRN IV NAUSEA/VOMITING; Start 07/29/19 at 00:00; Stop 07/29/19 at 08:42; Status DC Acetaminophen (Tylenol) 650 mg PRN Q4HRS PRN PO FEVER; Start 07/29/19 at 00:00; Stop 07/29/19 at 08:42; Status DC Alteplase, Recombinant 0 ml @ 0 mls/hr 1X ONCE IV ; Start 07/29/19 at 00:45; Stop 07/29/19 at 00:46; Status UNV Alteplase, Recombinant 0 ml @ 0 mls/hr Q1H IV ; Start 07/29/19 at 00:45; Stop 07/29/19 at 00:46; Status UNV Sodium Chloride 50 ml @ 0 mls/hr 1X ONCE IV ; Start 07/29/19 at 00:45; Stop 07/29/19 at 00:46; Status UNV Labetalol HCl (Normodyne Iv Push) 10 mg PRN Q10MIN PRN IVP HYPERTENSION; Start 07/29/19 at 00:45; Status UNV Nicardipine HCl 50 mg/Sodium Chloride 250 ml @ 25 mls/hr CONT PRN PRN IV HYPERTENSION; Start 07/29/19 at 00:45; Status UNV Labetalol HCl (Normodyne Iv Push) 10 mg PRN Q10MIN PRN IVP HYPERTENSION Last administered on 07/29/19at 14:06; Start 07/29/19 at 00:45 Nicardipine HCl 50 mg/Sodium Chloride 250 ml @ 25 mls/hr CONT PRN PRN IV HYPERTENSION; Start 07/29/19 at 00:45; Stop 07/31/19 at 17:20; Status DC Acetaminophen (Tylenol) 650 mg PRN Q6HRS PRN PO MILD PAIN / TEMP; Start 07/29/19 at 00:45 Acetaminophen (Tylenol Supp) 325 mg PRN Q6HRS PRN WA MILD PAIN / TEMP Last administered on 08/04/19at 00:11; Start 07/29/19 at 00:45 Ondansetron HCl (Zofran) 4 mg PRN Q6HRS PRN IV NAUSEA/VOMITING; Start 07/29/19 at 00:45 Alteplase, Recombinant 5.7 ml @ 342 mls/hr 1X ONCE IV Last administered on 07/29/19at 01:00; Start 07/29/19 at 01:00; Stop 07/29/19 at 01:01; Status DC Alteplase, Recombinant 51 ml @ 51 mls/hr Q1H IV Last administered on 07/29/19at 01:08; Start 07/29/19 at 01:00; Stop 07/29/19 at 01:59; Status DC Sodium Chloride 50 ml @ 200 mls/hr 1X ONCE IV Last administered on 07/29/19at 01:04; Start 07/29/19 at 01:00; Stop 07/29/19 at 01:14; Status DC Iohexol (Omnipaque 300 Mg/ml) 50 ml 1X ONCE IV Last administered on 07/29/19at 01:34; Start 07/29/19 at 01:15; Stop 07/29/19 at 01:16; Status DC Info (CONTRAST GIVEN -- Rx MONITORING) 1 each PRN DAILY PRN MC SEE COMMENTS; Start 07/29/19 at 01:15; Stop 07/31/19 at 01:14; Status DC Carvedilol (Coreg) 6.25 mg BIDWMEALS PO ; Start 07/29/19 at 09:00 Paroxetine HCl (Paxil) 10 mg DAILY PO ; Start 07/29/19 at 09:00 Pantoprazole Sodium (Protonix) 40 mg DAILYAC PO ; Start 07/29/19 at 09:00 Oxybutynin Chloride (Ditropan) 5 mg DAILY PO ; Start 07/29/19 at 09:00 Ceftriaxone Sodium (Rocephin) 1 gm Q24H IVP Last administered on 07/31/19at 22:06; Start 07/29/19 at 19:00; Stop 07/31/19 at 19:01; Status DC Simvastatin (Zocor) 20 mg HS PO ; Start 07/29/19 at 21:00; Stop 07/30/19 at 09:12; Status DC Aspirin (Richard Aspirin) 325 mg DAILYWBKFT PO ; Start 07/30/19 at 08:00; Stop 07/30/19 at 15:13; Status DC Atorvastatin Calcium (Lipitor) 40 mg QHS PO ; Start 07/30/19 at 21:00; Stop 08/05/19 at 20:42; Status DC Aspirin (Aspirin Rectal Supp) 300 mg DAILY WA Last administered on 08/06/19at 08:02; Start 07/30/19 at 15:30 Amino Acids/ Glycerin/ Electrolytes 1,000 ml @ 80 mls/hr [id number] IV Last administered on 08/05/19at 18:16; Start 07/31/19 at 13:00; Stop 08/05/19 at 21:56; Status DC Barium Sulfate (Varibar Thin Liquid Apple) 148 gm 1X ONCE PO Last administered on 08/03/19at 14:00; Start 08/03/19 at 14:00; Stop 08/03/19 at 14:01; Status DC Cefazolin Sodium 1 gm/Dextrose 100 ml @ 200 mls/hr 1X PREOP ONCE IV ; Start 08/04/19 at 09:00; Stop 08/04/19 at 09:29; Status UNV Cefazolin Sodium 50 ml @ 100 mls/hr 1X PREOP PRN IV PRIOR TO PROCEDURE Last administered on 08/04/19at 08:55; Start 08/04/19 at 09:00; Stop 08/04/19 at 09:01; Status DC Ringer's Solution 1,000 ml @ 75 mls/hr 1X ONCE IV Last administered on 08/04/19at 08:00; Start 08/04/19 at 08:00; Stop 08/04/19 at 21:19; Status DC Ringer's Solution 1,000 ml @ 50 mls/hr Q20H IV ; Start 08/04/19 at 08:17; Stop 08/04/19 at 20:16; Status DC Morphine Sulfate (Morphine Sulfate) 1 mg PRN Q2HR PRN IV PAIN Last administered on 08/06/19at 07:57; Start 08/04/19 at 08:45 Propofol 20 ml @ As Directed STK-MED ONCE IV ; Start 08/04/19 at 08:54; Stop 08/04/19 at 08:54; Status DC Lidocaine HCl (Lidocaine Pf 2% Vial) 5 ml STK-MED ONCE .ROUTE ; Start 08/04/19 at 08:54; Stop 08/04/19 at 08:54; Status DC Iohexol (Omnipaque 300 Mg/ml) 75 ml 1X ONCE IV Last administered on 08/04/19at 11:48; Start 08/04/19 at 11:00; Stop 08/04/19 at 11:01; Status DC Info (CONTRAST GIVEN -- Rx MONITORING) 1 each PRN DAILY PRN MC SEE COMMENTS; Start 08/04/19 at 11:00; Stop 08/06/19 at 10:59 Diphenhydramine HCl (Benadryl) 25 mg PRN Q6HRS PRN IVP ITCHING Last administered on 08/06/19at 07:56; Start 08/04/19 at 22:00 Haloperidol Lactate (Haldol Inj) 5 mg PRN Q6HRS PRN IVP AGITATION 2ND CHOICE; Start 08/05/19 at 08:15 Info (Tpn Per Pharmacy) 1 each PRN DAILY PRN MC SEE COMMENTS Last administered on 08/06/19at 09:21; Start 08/05/19 at 09:15 Sodium Chloride 90 meq/Potassium Chloride 50 meq/ Potassium Phosphate 13.6 mmol/Magnesium Sulfate 10 meq/ Calcium Gluconate 10 meq/ Multivitamins 10 ml/Chromium/ Copper/Manganese/ Seleni/Zn 1 ml/ Total Parenteral Nutrition/Amino Acids/Dextrose/ Fat Emulsion Intravenous 1,512 ml @ 63 mls/hr TPN CONT IV Last administered on 08/05/19at 21:31; Start 08/05/19 at 22:00; Stop 08/06/19 at 21:59 Lorazepam (Ativan Inj) 1 mg PRN Q4HRS PRN IVP ANXIETY / AGITATION; Start 08/06/19 at 08:45 Sodium Chloride 90 meq/Potassium Chloride 50 meq/ Potassium Phosphate 13.6 mmol/Magnesium Sulfate 10 meq/ Calcium Gluconate 10 meq/ Multivitamins 10 ml/Chromium/ Copper/Manganese/ Seleni/Zn 1 ml/ Total Parenteral Nutrition/Amino Acids/Dextrose/ Fat Emulsion Intravenous 1,512 ml @ 63 mls/hr TPN CONT IV ; Start 08/06/19 at 22:00; Stop 08/07/19 at 21:59 Active Scripts Active Culturelle (Lactobacillus Rhamnosus Gg) 1 Each Cap.sprink 1 Cap PO BID 14 Days Reported Tramadol Hcl 50 Mg Tablet 50 Mg PO Q6HRS PRN Ranitidine Hcl 150 Mg Capsule 150 Mg PO BID Paroxetine Hcl 10 Mg Tablet 10 Mg PO DAILY Oxybutynin Chloride Er (Oxybutynin Chloride) 5 Mg Tab.er.24 1 Tab PO DAILY Prilosec Otc (Omeprazole Magnesium) 20 Mg Tablet.dr 2 Tab PO DAILY Meloxicam 7.5 Mg Tablet 1 Tab PO DAILY Carvedilol (Carvedilol) 6.25 Mg Tablet 6.25 Mg PO BIDWMEALS Vitals/I & O Vital Sign - Last 24 Hours 08/05/19 08/05/19 08/05/19 08/05/19 11:00 15:00 18:05 19:00 Temp 98.1 96.9 99.0 98.1 96.9 99.0 Pulse 86 85 85 Resp 14 14 16 B/P (MAP) 120/57 (78) 125/50 (75) 163/77 (105) Pulse Ox 92 96 95 O2 Delivery Room Air Room Air Room Air 08/05/19 08/06/19 08/06/19 08/06/19 23:00 03:27 07:00 07:57 Temp 98.3 99.1 98.0 98.3 99.1 98.0 Pulse 77 88 79 Resp 16 16 16 24 B/P (MAP) 139/58 (85) 130/45 (73) 149/51 (83) Pulse Ox 93 94 91 91 O2 Delivery Room Air Room Air O2 Flow Rate 2.0 08/06/19 08:27 Resp 22 O2 Delivery Room Air Intake and Output 08/05/19 08/05/19 08/06/19 15:00 23:00 07:00 Intake Total 280 ml 0 ml Balance 280 ml 0 ml Nutrition Consultation Dietary Evaluation: Recommendations by RD: Dietary education by RD, PPN/TPN Comments: REC continue PPN for short term nutrition at this time Expected Outcomes/Goals: comfort care ? palliative care following Malnutrition Findings: Body Fat Depletion (Non Severe: Mod to Severe Weight Status: Appropriate GALDINO LÓPEZ MD Aug 06, 2019 10:58
[2019-08-06 11:00] VITALS: BP 161/60
[2019-08-06] MEDS ORDERED: methylPREDNISolone SOD SUCC PF 125 MG/2 ML VIAL. IV ONE (11:30)
[2019-08-06 14:48] VITALS: BP 148/54
[2019-08-06 19:00] VITALS: BP 132/83
[2019-08-06] MEDS: methylPREDNISolone SOD SUCC PF 40 MG/ML VIAL. IV SCH (20:08)
[2019-08-06] MEDS ORDERED: TOTAL PARENTERAL NUTRITION 1,424.9987 ML, AMINO ACID 15% 60 GM, DEXTROSE 70 % IN WATER ... IV SCH ×10 (22:00)
[2019-08-06] MEDS: ACETAMINOPHEN 325 MG SUPP.RECT. PR PRN (22:54)
[2019-08-06 23:00] VITALS: BP 155/73
[2019-08-07] MEDS: MORPHINE SULFATE 2 MG/ML VIAL. IV PRN ×2 (02:14→22:59)
[2019-08-07] MEDS: diphenhydrAMINE 50 MG/ML VIAL IVP PRN ×2 (02:14→17:36)
[2019-08-07 03:00] VITALS: BP 129/57
[2019-08-07 05:21] LABS: CALCIUM 9.1 mg/dL (8.5-10.1); CREATININE 0.9 mg/dL (0.6-1.0); GFR 59.4; MAGNESIUM 1.9 mg/dL (1.8-2.4); PHOSPHORUS 2.6 mg/dL (2.6-4.7); POTASSIUM 4.5 mmol/L (3.5-5.1)
[2019-08-07 07:00] VITALS: BP 137/58
[2019-08-07] MEDS: CARVEDILOL 6.25 MG TABLET. PO SCH ×2 (07:25→16:33)
[2019-08-07] MEDS: OXYBUTYNIN CHLORIDE 5 MG TABLET PO SCH (08:46)
[2019-08-07] MEDS: PARoxetine 10 MG TABLET PO SCH (08:46)
[2019-08-07] MEDS: methylPREDNISolone SOD SUCC PF 40 MG/ML VIAL. IV SCH ×2 (08:53→20:56)
--- NOTE | 2019-08-07 09:17 | PDOC ---
PROGRESS NOTES Chief Complaint Chief Complaint Acute CVA - s/p tPA, was admitted to ICU, Acute metabolic and toxic encephalopathy CVA syndrome + UTI. 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 Gen weakness - [facility] on the works Dysphagia persistent HUge hiatal hernia, precluded so and PEG DNR ACUTE DIFFUSE MACULOPAPULAR RASH , PRURITIC - HYPERSENSITIVITY REACTION? - 08/05/19 History of Present Illness History of Present Illness transferred from ICU post TPA for CVA Still dysphagia, HUGE hiatal hernia, failed attempted so and pEG (Peg attempted 11.8) SO no w PICC inserted 08/05 and tpn BUT NOW diffuse maculopapular rash, pruritic, mostly on anterior chest , belly back GEtting benadryl IV ALlergy only listed is to ancef, and NOT on abx ID involved, staph is likely contaminant 1/4 bottles E coli treated - so ff abx now SOme confusion. She continues to undress. D/w sons her overall poor prognosis and need to consider palliative/hospice PLAN: TPN,, PICC Add solu medrol MOnitor this rash PAlliative to meet with family (leni son- i spoke to on wednesday via phone) Goals of care letty only certain SNU can take TPN I would screen for pplace - tpn (Sw pl[facility]) Otherwise TPN PICC, has been on procalamine x 5 days approx solu and benadryl dw TEO [place] so far holding DNR HAldol prn Vitals Vitals Vital Signs Date Time Temp Pulse Resp B/P (MAP) Pulse Ox O2 Delivery O2 Flow Rate FiO2 08/07/19 07:00 99.2 108 20 137/58 (84) 92 Room Air 99.2 08/06/19 07:57 2.0 Physical Exam General: Other (confusion) Heart: Regular rate, Normal S1, Normal S2 Lungs: Clear Abdomen: Soft Extremities: No clubbing, No cyanosis Skin: No rashes, No breakdown, No significant lesion Labs LABS Laboratory Tests Test 08/07/19 04:30 Sodium Level 138 mmol/L (136-145) Potassium Level 4.5 mmol/L (3.5-5.1) Chloride Level 105 mmol/L (98-107) Carbon Dioxide Level 21 mmol/L (21-32) Anion Gap 12 (6-14) Blood Urea Nitrogen 33 mg/dL (7-20) Creatinine 0.9 mg/dL (0.6-1.0) Estimated GFR (Cockcroft-Gault) 59.4 Glucose Level 256 mg/dL (70-99) Calcium Level 9.1 mg/dL (8.5-10.1) Phosphorus Level 2.6 mg/dL (2.6-4.7) Magnesium Level 1.9 mg/dL (1.8-2.4) Assessment and Plan Assessmemt and Plan Problems Medical Problems: (1) Acute CVA (cerebrovascular accident) Status: Acute (2) Acute encephalopathy Status: Acute (3) CLAY (acute kidney injury) Status: Acute (4) Altered mental status Status: Acute (5) Aphasia Status: Acute (6) Confusion Status: Chronic (7) DM (diabetes mellitus) Status: Chronic (8) Fall Status: Acute (9) HTN (hypertension) Status: Chronic (10) Metabolic encephalopathy Status: Acute (11) 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 Labs Laboratory Tests Test 08/05/19 11:23 08/06/19 06:40 08/07/19 04:30 Sodium Level 137 mmol/L (136-145) 138 mmol/L (136-145) 138 mmol/L (136-145) Potassium Level 4.4 mmol/L (3.5-5.1) 4.4 mmol/L (3.5-5.1) 4.5 mmol/L (3.5-5.1) Chloride Level 102 mmol/L (98-107) 104 mmol/L (98-107) 105 mmol/L (98-107) Carbon Dioxide Level 24 mmol/L (21-32) 22 mmol/L (21-32) 21 mmol/L (21-32) Anion Gap 11 (6-14) 12 (6-14) 12 (6-14) Blood Urea Nitrogen 34 mg/dL (7-20) 32 mg/dL (7-20) 33 mg/dL (7-20) Creatinine 0.9 mg/dL (0.6-1.0) 0.8 mg/dL (0.6-1.0) 0.9 mg/dL (0.6-1.0) Estimated GFR (Cockcroft-Gault) 59.4 68.0 59.4 Glucose Level 146 mg/dL (70-99) 144 mg/dL (70-99) 256 mg/dL (70-99) Calcium Level 8.8 mg/dL (8.5-10.1) 8.8 mg/dL (8.5-10.1) 9.1 mg/dL (8.5-10.1) Phosphorus Level 3.8 mg/dL (2.6-4.7) 3.6 mg/dL (2.6-4.7) 2.6 mg/dL (2.6-4.7) Magnesium Level 1.8 mg/dL (1.8-2.4) 1.9 mg/dL (1.8-2.4) 1.9 mg/dL (1.8-2.4) Laboratory Tests Test 08/07/19 04:30 Sodium Level 138 mmol/L (136-145) Potassium Level 4.5 mmol/L (3.5-5.1) Chloride Level 105 mmol/L (98-107) Carbon Dioxide Level 21 mmol/L (21-32) Anion Gap 12 (6-14) Blood Urea Nitrogen 33 mg/dL (7-20) Creatinine 0.9 mg/dL (0.6-1.0) Estimated GFR (Cockcroft-Gault) 59.4 Glucose Level 256 mg/dL (70-99) Calcium Level 9.1 mg/dL (8.5-10.1) Phosphorus Level 2.6 mg/dL (2.6-4.7) Magnesium Level 1.9 mg/dL (1.8-2.4) Microbiology 07/29/19 Blood Culture - Final, Complete NO GROWTH AFTER 5 DAYS 07/28/19 Urine Culture - Final, Complete 07/28/19 Urine Culture Result 1 (ANTONIETA) - Final, Complete 07/28/19 Antimicrobic Susceptibility - Final, Complete Medications Current Medications Ketorolac Tromethamine (Toradol 30mg Vial) 30 mg 1X ONCE IV Last administered on 07/28/19at 23:38; Start 07/28/19 at 23:30; Stop 07/28/19 at 23:31; Status DC Ceftriaxone Sodium (Rocephin) 1 gm 1X ONCE IVP Last administered on 07/29/19at 00:53; Start 07/28/19 at 23:45; Stop 07/28/19 at 23:46; Status DC Ondansetron HCl (Zofran) 4 mg PRN Q8HRS PRN IV NAUSEA/VOMITING; Start 07/29/19 at 00:00; Stop 07/29/19 at 08:42; Status DC Acetaminophen (Tylenol) 650 mg PRN Q4HRS PRN PO FEVER; Start 07/29/19 at 00:00; Stop 07/29/19 at 08:42; Status DC Alteplase, Recombinant 0 ml @ 0 mls/hr 1X ONCE IV ; Start 07/29/19 at 00:45; Stop 07/29/19 at 00:46; Status UNV Alteplase, Recombinant 0 ml @ 0 mls/hr Q1H IV ; Start 07/29/19 at 00:45; Stop 07/29/19 at 00:46; Status UNV Sodium Chloride 50 ml @ 0 mls/hr 1X ONCE IV ; Start 07/29/19 at 00:45; Stop 07/29/19 at 00:46; Status UNV Labetalol HCl (Normodyne Iv Push) 10 mg PRN Q10MIN PRN IVP HYPERTENSION; Start 07/29/19 at 00:45; Status UNV Nicardipine HCl 50 mg/Sodium Chloride 250 ml @ 25 mls/hr CONT PRN PRN IV HYPERTENSION; Start 07/29/19 at 00:45; Status UNV Labetalol HCl (Normodyne Iv Push) 10 mg PRN Q10MIN PRN IVP HYPERTENSION Last administered on 07/29/19at 14:06; Start 07/29/19 at 00:45 Nicardipine HCl 50 mg/Sodium Chloride 250 ml @ 25 mls/hr CONT PRN PRN IV HYPERTENSION; Start 07/29/19 at 00:45; Stop 07/31/19 at 17:20; Status DC Acetaminophen (Tylenol) 650 mg PRN Q6HRS PRN PO MILD PAIN / TEMP; Start 07/29/19 at 00:45 Acetaminophen (Tylenol Supp) 325 mg PRN Q6HRS PRN [place] MILD PAIN / TEMP Last administered on 08/06/19at 22:54; Start 07/29/19 at 00:45 Ondansetron HCl (Zofran) 4 mg PRN Q6HRS PRN IV NAUSEA/VOMITING; Start 07/29/19 at 00:45 Alteplase, Recombinant 5.7 ml @ 342 mls/hr 1X ONCE IV Last administered on 07/29/19at 01:00; Start 07/29/19 at 01:00; Stop 07/29/19 at 01:01; Status DC Alteplase, Recombinant 51 ml @ 51 mls/hr Q1H IV Last administered on 07/29/19at 01:08; Start 07/29/19 at 01:00; Stop 07/29/19 at 01:59; Status DC Sodium Chloride 50 ml @ 200 mls/hr 1X ONCE IV Last administered on 07/29/19at 01:04; Start 07/29/19 at 01:00; Stop 07/29/19 at 01:14; Status DC Iohexol (Omnipaque 300 Mg/ml) 50 ml 1X ONCE IV Last administered on 07/29/19at 01:34; Start 07/29/19 at 01:15; Stop 07/29/19 at 01:16; Status DC Info (CONTRAST GIVEN -- Rx MONITORING) 1 each PRN DAILY PRN MC SEE COMMENTS; Start 07/29/19 at 01:15; Stop 07/31/19 at 01:14; Status DC Carvedilol (Coreg) 6.25 mg BIDWMEALS PO ; Start 07/29/19 at 09:00 Paroxetine HCl (Paxil) 10 mg DAILY PO ; Start 07/29/19 at 09:00 Pantoprazole Sodium (Protonix) 40 mg DAILYAC PO ; Start 07/29/19 at 09:00 Oxybutynin Chloride (Ditropan) 5 mg DAILY PO ; Start 07/29/19 at 09:00 Ceftriaxone Sodium (Rocephin) 1 gm Q24H IVP Last administered on 07/31/19at 22:06; Start 07/29/19 at 19:00; Stop 07/31/19 at 19:01; Status DC Simvastatin (Zocor) 20 mg HS PO ; Start 07/29/19 at 21:00; Stop 07/30/19 at 09:12; Status DC Aspirin (Richard Aspirin) 325 mg DAILYWBKFT PO ; Start 07/30/19 at 08:00; Stop 07/30/19 at 15:13; Status DC Atorvastatin Calcium (Lipitor) 40 mg QHS PO ; Start 07/30/19 at 21:00; Stop 08/05/19 at 20:42; Status DC Aspirin (Aspirin Rectal Supp) 300 mg DAILY [place] Last administered on 08/06/19at 08:02; Start 07/30/19 at 15:30 Amino Acids/ Glycerin/ Electrolytes 1,000 ml @ 80 mls/hr [id number] IV Last administered on 08/05/19at 18:16; Start 07/31/19 at 13:00; Stop 08/05/19 at 21:56; Status DC Barium Sulfate (Varibar Thin Liquid Apple) 148 gm 1X ONCE PO Last administered on 08/03/19at 14:00; Start 08/03/19 at 14:00; Stop 08/03/19 at 14:01; Status DC Cefazolin Sodium 1 gm/Dextrose 100 ml @ 200 mls/hr 1X PREOP ONCE IV ; Start 08/04/19 at 09:00; Stop 08/04/19 at 09:29; Status UNV Cefazolin Sodium 50 ml @ 100 mls/hr 1X PREOP PRN IV PRIOR TO PROCEDURE Last administered on 08/04/19at 08:55; Start 08/04/19 at 09:00; Stop 08/04/19 at 09:01; Status DC Ringer's Solution 1,000 ml @ 75 mls/hr 1X ONCE IV Last administered on 08/04/19at 08:00; Start 08/04/19 at 08:00; Stop 08/04/19 at 21:19; Status DC Ringer's Solution 1,000 ml @ 50 mls/hr Q20H IV ; Start 08/04/19 at 08:17; Stop 08/04/19 at 20:16; Status DC Morphine Sulfate (Morphine Sulfate) 1 mg PRN Q2HR PRN IV PAIN Last administered on 08/07/19at 02:14; Start 08/04/19 at 08:45 Propofol 20 ml @ As Directed STK-MED ONCE IV ; Start 08/04/19 at 08:54; Stop 08/04/19 at 08:54; Status DC Lidocaine HCl (Lidocaine Pf 2% Vial) 5 ml STK-MED ONCE .ROUTE ; Start 08/04/19 at 08:54; Stop 08/04/19 at 08:54; Status DC Iohexol (Omnipaque 300 Mg/ml) 75 ml 1X ONCE IV Last administered on 08/04/19at 11:48; Start 08/04/19 at 11:00; Stop 08/04/19 at 11:01; Status DC Info (CONTRAST GIVEN -- Rx MONITORING) 1 each PRN DAILY PRN MC SEE COMMENTS; Start 08/04/19 at 11:00; Stop 08/06/19 at 10:59; Status DC Diphenhydramine HCl (Benadryl) 25 mg PRN Q6HRS PRN IVP ITCHING Last administered on 08/07/19at 02:14; Start 08/04/19 at 22:00 Haloperidol Lactate (Haldol Inj) 5 mg PRN Q6HRS PRN IVP AGITATION 2ND CHOICE; Start 08/05/19 at 08:15 Info (Tpn Per Pharmacy) 1 each PRN DAILY PRN MC SEE COMMENTS Last administered on 08/06/19at 09:21; Start 08/05/19 at 09:15 Sodium Chloride 90 meq/Potassium Chloride 50 meq/ Potassium Phosphate 13.6 mmol/Magnesium Sulfate 10 meq/ Calcium Gluconate 10 meq/ Multivitamins 10 ml/Chromium/ Copper/Manganese/ Seleni/Zn 1 ml/ Total Parenteral Nutrition/Amino Acids/Dextrose/ Fat Emulsion Intravenous 1,512 ml @ 63 mls/hr TPN CONT IV Last administered on 08/05/19at 21:31; Start 08/05/19 at 22:00; Stop 08/06/19 at 21:59; Status DC Lorazepam (Ativan Inj) 1 mg PRN Q4HRS PRN IVP ANXIETY / AGITATION Last administered on 08/06/19at 20:08; Start 08/06/19 at 08:45 Sodium Chloride 90 meq/Potassium Chloride 50 meq/ Potassium Phosphate 13.6 mmol/Magnesium Sulfate 10 meq/ Calcium Gluconate 10 meq/ Multivitamins 10 ml/Ch romium/ Copper/Manganese/ Seleni/Zn 1 ml/ Total Parenteral Nutrition/Amino Acids/Dextrose/ Fat Emulsion Intravenous 1,512 ml @ 63 mls/hr TPN CONT IV Last administered on 08/06/19at 20:07; Start 08/06/19 at 22:00; Stop 08/07/19 at 21:59 Methylprednisolone Sodium Succinate (SOLU-Medrol 125MG VIAL) 125 mg 1X ONCE IV Last administered on 08/06/19at 11:36; Start 08/06/19 at 11:30; Stop 08/06/19 at 11:31; Status DC Methylprednisolone Sodium Succinate (SOLU-Medrol 40MG VIAL) 40 mg Q12HR IV Last administered on 08/07/19at 08:53; Start 08/06/19 at 21:00 Active Scripts Active Culturelle (Lactobacillus Rhamnosus Gg) 1 Each Cap.sprink 1 Cap PO BID 14 Days Reported Tramadol Hcl 50 Mg Tablet 50 Mg PO Q6HRS PRN Ranitidine Hcl 150 Mg Capsule 150 Mg PO BID Paroxetine Hcl 10 Mg Tablet 10 Mg PO DAILY Oxybutynin Chloride Er (Oxybutynin Chloride) 5 Mg Tab.er.24 1 Tab PO DAILY Prilosec Otc (Omeprazole Magnesium) 20 Mg Tablet.dr 2 Tab PO DAILY Meloxicam 7.5 Mg Tablet 1 Tab PO DAILY Carvedilol (Carvedilol) 6.25 Mg Tablet 6.25 Mg PO BIDWMEALS Vitals/I & O Vital Sign - Last 24 Hours 08/06/19 08/06/19 08/06/19 08/06/19 11:00 14:48 19:00 23:00 Temp 97.9 98.2 97.8 98.9 97.9 98.2 97.8 98.9 Pulse 91 88 105 102 Resp 16 16 16 18 B/P (MAP) 161/60 (93) 148/54 (85) 132/83 (99) 155/73 (100) Pulse Ox 93 96 95 91 O2 Delivery Room Air Room Air 08/07/19 08/07/19 03:00 07:00 Temp 97.8 99.2 97.8 99.2 Pulse 104 108 Resp 20 20 B/P (MAP) 129/57 (81) 137/58 (84) Pulse Ox 90 92 O2 Delivery Room Air Intake and Output 08/06/19 08/06/19 08/07/19 15:00 23:00 07:00 Intake Total 1512 ml 0 ml Output Total 900 ml Balance -900 ml 1512 ml 0 ml Nutrition Consultation Dietary Evaluation: Recommendations by RD: Dietary education by RD, PPN/TPN Comments: REC continue PPN for short term nutrition at this time Expected Outcomes/Goals: comfort care ? palliative care following Malnutrition Findings: Body Fat Depletion (Non Severe: Mod to Severe Weight Status: Appropriate JAYDEN ESCOBAR MD Aug 07, 2019 09:16
[2019-08-07] MEDS: ASPIRIN RECTAL 300 MG SUPP. PR SCH (10:09)
[2019-08-07 10:52] VITALS: BP 121/57
--- NOTE | 2019-08-07 11:40 | PDOC ---
ACE NÚÑEZ POLYMER SPECIALIST 08/07/19 1140: SURGICAL PROGRESS NOTE Subjective getting up with PT no family currently present Vital Signs Vital Signs Date Time Temp Pulse Resp B/P (MAP) Pulse Ox O2 Delivery O2 Flow Rate FiO2 08/07/19 10:52 97.8 82 16 121/57 (78) 94 Room Air 97.8 08/06/19 07:57 2.0 I&O Intake and Output 08/07/19 07:00 Intake Total 1512 ml Output Total 900 ml Balance 612 ml Intake Oral 0 ml IV Total 1512 ml Output Urine Total 900 ml # Voids 5 General: Other (confusion) Abdomen: Soft Labs Laboratory Tests Test 08/06/19 06:40 08/07/19 04:30 Sodium Level 138 mmol/L (136-145) 138 mmol/L (136-145) Potassium Level 4.4 mmol/L (3.5-5.1) 4.5 mmol/L (3.5-5.1) Chloride Level 104 mmol/L (98-107) 105 mmol/L (98-107) Carbon Dioxide Level 22 mmol/L (21-32) 21 mmol/L (21-32) Anion Gap 12 (6-14) 12 (6-14) Blood Urea Nitrogen 32 mg/dL (7-20) 33 mg/dL (7-20) Creatinine 0.8 mg/dL (0.6-1.0) 0.9 mg/dL (0.6-1.0) Estimated GFR (Cockcroft-Gault) 68.0 59.4 Glucose Level 144 mg/dL (70-99) 256 mg/dL (70-99) Calcium Level 8.8 mg/dL (8.5-10.1) 9.1 mg/dL (8.5-10.1) Phosphorus Level 3.6 mg/dL (2.6-4.7) 2.6 mg/dL (2.6-4.7) Magnesium Level 1.9 mg/dL (1.8-2.4) 1.9 mg/dL (1.8-2.4) Laboratory Tests Test 08/07/19 04:30 Sodium Level 138 mmol/L (136-145) Potassium Level 4.5 mmol/L (3.5-5.1) Chloride Level 105 mmol/L (98-107) Carbon Dioxide Level 21 mmol/L (21-32) Anion Gap 12 (6-14) Blood Urea Nitrogen 33 mg/dL (7-20) Creatinine 0.9 mg/dL (0.6-1.0) Estimated GFR (Cockcroft-Gault) 59.4 Glucose Level 256 mg/dL (70-99) Calcium Level 9.1 mg/dL (8.5-10.1) Phosphorus Level 2.6 mg/dL (2.6-4.7) Magnesium Level 1.9 mg/dL (1.8-2.4) Problem List Problems Medical Problems: (1) Acute CVA (cerebrovascular accident) Status: Acute (2) Acute encephalopathy Status: Acute (3) CLAY (acute kidney injury) Status: Acute (4) Altered mental status Status: Acute (5) Aphasia Status: Acute (6) Confusion Status: Chronic (7) DM (diabetes mellitus) Status: Chronic (8) Fall Status: Acute (9) HTN (hypertension) Status: Chronic (10) Metabolic encephalopathy Status: Acute (11) Occlusion of left internal carotid artery Status: Acute (12) Old cerebrovascular accident (CVA) without late effect Status: Acute (13) Right sided weakness Status: Acute (14) UTI (urinary tract infection) Status: Acute Assessment/Plan awaiting palliative meeting very poor surgical candidate, surgical option would require j tube, unable to perform g tube due to HH ANDREW COELHO MD 08/07/19 1613: SURGICAL PROGRESS NOTE Assessment/Plan Waiting to hear from the family how they would wish to proceed. Agree with Hao's assessment and plan. ACE NÚÑEZ APRN Aug 07, 2019 11:40 ANDREW COELHO MD Aug 07, 2019 16:13
--- NOTE | 2019-08-07 12:17 | PDOC ---
Objective: Objective: Reviewed surg note - would need J tube (can't do G tube), awaiting palliative discussion. Vital Signs: Vital Signs Date Time Temp Pulse Resp B/P (MAP) Pulse Ox O2 Delivery O2 Flow Rate FiO2 08/07/19 10:52 97.8 82 16 121/57 (78) 94 Room Air 97.8 08/06/19 07:57 2.0 Labs: Laboratory Tests Test 08/07/19 04:30 Sodium Level 138 mmol/L Potassium Level 4.5 mmol/L Chloride Level 105 mmol/L Carbon Dioxide Level 21 mmol/L Anion Gap 12 Blood Urea Nitrogen 33 mg/dL Creatinine 0.9 mg/dL Estimated GFR (Cockcroft-Gault) 59.4 Glucose Level 256 mg/dL Calcium Level 9.1 mg/dL Phosphorus Level 2.6 mg/dL Magnesium Level 1.9 mg/dL Imaging: EGD with attempted PEG 08/04 large hiatal hernia non-erosive gastritis PEG unable to be -placed as external palpation and passage of anesthetic with thiin guage needle unable to locate gastric lumen Chest/abd CT Impression: 1. Large hiatal hernia. 2. Small thyroid nodules. PE: GEN: NAD, on TPN NEURO/PSYCH: resting, not awakened A/P: CVA, dysphagia -- Unable to place PEG w/ hiatal hernia. Surgery and palliative involved. VIANCA CHAMPAGNE Aug 07, 2019 12:17
--- NOTE | 2019-08-07 12:35 | PDOC2 ---
PALLIATIVE CARE Palliative Care Note Palliative Care Patient seen at 1030. Minimal response to verbal stimuli Spoke with son Jean-Pierre. Unable to meet today or tomorrow. Discussed options for care. Reviewed recommendations from PT/OT and speech. Limited options with TPN. G-tube would require surgical placement. Hospice/comfort care discussed as option. Jean-Pierre will talk with his siblings and return call tomorrow. 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 "I don't want her to suffer" Informed that SW working on placement with TPN. 1400 Spoke with son Ronald and his . Acknowledges patient is declining. Discussed options for care. His brother Jean-Pierre will be in contact tomorrow with decision. Received permission from Ronald to look at options for residential placement. DENIZ FAUSTIN Aug 07, 2019 12:35
[2019-08-07] MEDS: TPN PER PHARMACY MC PRN ×2 (14:30→14:32)
[2019-08-07 15:00] VITALS: BP 158/74
--- NOTE | 2019-08-07 15:00 | PDOC ---
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 Acute several small subcentimeter bilateral cortical based acute ischemic infarcts involving the parasagittal posterior frontal lobes and parietal lobes in the anterior cerebral artery territories. Aphasia on 07/28/19 s/p TPA. Right side weakness. Metabolic encephalopathy. Confusion. HTN. DM. 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 RECOMMENDATIONS/PLAN: TPA administrated on 07/28/19. ASA 325 mg daily, changed to 300 mg rectal due to not able to swallow. Statin HS. Palliative care team consulted. PEG issues. History of Present Illness This is an 88-year-old female patient with above medical diseases has not been feeling well in [facility] past 3 days described as tiredness and weakness in one side sometime and other side other times then the entire body. She had a fall at home. EMS was called for altered mental status associated with the fall. However upon further discussion patient has had fall a few days ago with bruising to left side of her head. Patient was initially alert and oriented 3. She follows commands appropriately. NIH of 3 however non-unilateral deficit. While in [facility] ER, she was noted to have new symptoms of aphasia and her NIH score became 6. She was thought to have acute CVA and TPA was offered to her after all criteria were met. Her CTA showed high grade stenosis and occlusion of left ICA. 08/07/19: Still encephalopathic. Past Medical History Cardiovascular: HTN Pulmonary: No pertinent hx CENTRAL NERVOUS SYSTEM: CVA GI: GERD Heme/Onc: No pertinent hx Hepatobiliary: No pertinent hx Musculoskeletal: Osteoarthritis Rheumatologic: No pertinent hx Infectious disease: No pertinent hx ENT: No pertinent hx Renal/: No pertinent hx, UTI Endocrine: No pertinent hx Dermatology: No pertinent hx Past Surgical History No major surgery recently. Family History Heart Disease ALLERGY: NKDA MEDICATIONS: Refer to [facility] SOCIAL HISTORY: Denies current smoking, drinking, and illicit drug use. REVIEW OF SYSTEMS: Constitutional: No malnutrition, weight loss, cachexia. Head: No traumatic brain or head injury. Skin: No edema, or rash. Ear: No infection, tinnitus. Eyes: No vision loss or color blindness. Nose: No bleeding or purulent discharges. Hearing: Hearing decrease. Neck: No injury. Breast: No history of cancer, masses,or discharges. Cardiac: HTN. Pulmonary: No COPD. GI: GERD. Urinary/genital: UTI. Endocrinologic: Diabetes Mellitus. Skeletomuscular: Generalized weakness. Neurological: see HP. Psychiatric: Denies drug use/abuse. Otherwise, not [id number] review of systems. PHYSICAL EXAMINATION: General appearance is in subacute distress. HEENT: Normocephalic and nontraumatic. Eyes, nose, ears, and throat are unremarkable. Neck is supple. No lymphadenopathy. No crepitus. Cardiovascular: S1, S2, regular rate and rhythm. Pulmonary: mildly decreased to auscultation bilaterally. Abdomen: Bowel sounds are positive. Extremities: No rash, lesions, or edema. Restriction of range of motion in right UE. NEUROLOGICAL EXAMINATION: Awake form time to time. Not oriented to time, place and person. PERRL. EOMI. CN: Right side VII palsy. Muscle tone: Decreased in right side. Muscle strength: 1-2 right UE and 3 LE. 5- left side. DTR: 1-2 Plantar reflex: weak extensor response in right side. Gait: not able to walk. Sensory exam: Decreased in right UE. No other acute cerebellar signs. Objective Objective Vital Signs Date Time Temp Pulse Resp B/P (MAP) Pulse Ox O2 Delivery O2 Flow Rate FiO2 08/07/19 10:52 97.8 82 16 121/57 (78) 94 Room Air 97.8 08/06/19 07:57 2.0 Intake and Output 08/07/19 07:00 Intake Total 1512 ml Output Total 900 ml Balance 612 ml Intake Oral 0 ml IV Total 1512 ml Output Urine Total 900 ml # Voids 5 Vitals Signs Vitals VS - Last 72 Hours, by Label Date Time Temp Pulse Resp B/P (MAP) Pulse Ox O2 Delivery O2 Flow Rate FiO2 08/07/19 10:52 97.8 82 16 121/57 (78) 94 Room Air 97.8 08/07/19 08:00 Room Air 08/07/19 07:00 99.2 108 20 137/58 (84) 92 Room Air 99.2 08/07/19 03:00 97.8 104 20 129/57 (81) 90 97.8 08/06/19 23:00 98.9 102 18 155/73 (100) 91 98.9 08/06/19 19:00 97.8 105 16 132/83 (99) 95 97.8 08/06/19 14:48 98.2 88 16 148/54 (85) 96 Room Air 98.2 08/06/19 11:00 97.9 91 16 161/60 (93) 93 Room Air 97.9 08/06/19 08:27 22 Room Air 08/06/19 07:57 24 91 Room Air 2.0 08/06/19 07:00 98.0 79 16 149/51 (83) 91 Room Air 98.0 Laboratory Laboratory Laboratory Tests Test 08/07/19 04:30 08/07/19 13:54 Sodium Level 138 mmol/L (136-145) Potassium Level 4.5 mmol/L (3.5-5.1) Chloride Level 105 mmol/L (98-107) Carbon Dioxide Level 21 mmol/L (21-32) Anion Gap 12 (6-14) Blood Urea Nitrogen 33 mg/dL (7-20) Creatinine 0.9 mg/dL (0.6-1.0) Estimated GFR (Cockcroft-Gault) 59.4 Glucose Level 256 mg/dL (70-99) Calcium Level 9.1 mg/dL (8.5-10.1) Phosphorus Level 2.6 mg/dL (2.6-4.7) Magnesium Level 1.9 mg/dL (1.8-2.4) Glucose (Fingerstick) 218 mg/dL (70-99) Microbiology 07/29/19 Blood Culture - Final, Complete NO GROWTH AFTER 5 DAYS 07/28/19 Urine Culture - Final, Complete 07/28/19 Urine Culture Result 1 (ANTONIETA) - Final, Complete 07/28/19 Antimicrobic Susceptibility - Final, Complete Medication Medications Current Medications Methylprednisolone Sodium Succinate (SOLU-Medrol 40MG VIAL) 40 mg Q12HR IV Last administered on 08/07/19at 08:53; Start 08/06/19 at 21:00 Sodium Chloride 90 meq/Potassium Chloride 50 meq/ Potassium Phosphate 13.6 mmol/Magnesium Sulfate 10 meq/ Calcium Gluconate 10 meq/ Multivitamins 10 ml/Chromium/ Copper/Manganese/ Seleni/Zn 1 ml/ Total Parenteral Nutrition/Amino Acids/Dextrose/ Fat Emulsion Intravenous 1,512 ml @ 63 mls/hr TPN CONT IV Last administered on 08/06/19at 20:07; Start 08/06/19 at 22:00; Stop 08/07/19 at 21:59 Sodium Chloride 90 meq/Potassium Chloride 50 meq/ Potassium Phosphate 18 mmol/ Magnesium Sulfate 10 meq/Calcium Gluconate 10 meq/ Multivitamins 10 ml/Chromium/ Copper/Manganese/ Seleni/Zn 1 ml/ Total Parenteral Nutrition/Amino Acids/Dextrose/ Fat Emulsion Intravenous 1,512 ml @ 63 mls/hr TPN CONT IV ; Start 08/07/19 at 22:00; Stop 08/08/19 at 21:59 Comment Review of Relevant I have reviewed the following items shannan (where applicable) has been applied. JACQUE WINKLER MD Aug 07, 2019 15:00
[2019-08-07 19:00] VITALS: BP 148/67
[2019-08-07] MEDS ORDERED: TOTAL PARENTERAL NUTRITION IV SCH ×10 (22:00)
[2019-08-07] MEDS ORDERED: [UNRECOGNIZED DRUG - OTHER] IV SCH ×10 (22:00)
[2019-08-07] MEDS ORDERED: DEXTROSE 70% IV SCH ×10 (22:00)
[2019-08-07] MEDS ORDERED: AMINO ACID IV SCH ×10 (22:00)
[2019-08-07 23:00] VITALS: BP 143/53
[2019-08-08] MEDS: MORPHINE SULFATE 2 MG/ML VIAL. IV PRN ×3 (02:53→22:24)
[2019-08-08 03:00] VITALS: BP 142/64
[2019-08-08 07:00] VITALS: BP 147/64
[2019-08-08] MEDS: PANTOPRAZOLE 40 MG TABLET.DR. PO SCH (07:30)
--- NOTE | 2019-08-08 07:57 | PDOC ---
SURGICAL PROGRESS NOTE Subjective sleeping d/w nursing Vital Signs Vital Signs Date Time Temp Pulse Resp B/P (MAP) Pulse Ox O2 Delivery O2 Flow Rate FiO2 08/08/19 07:00 97.8 84 16 147/64 (91) 95 Room Air 97.8 I&O Intake and Output 08/08/19 07:00 Intake Total 1512 ml Output Total 350 ml Balance 1162 ml Intake Oral 0 ml IV Total 1512 ml Output Urine Total 350 ml # Voids 1 General: Other (sleeping) Abdomen: Soft Labs Laboratory Tests Test 08/07/19 04:30 08/07/19 13:54 08/07/19 18:01 08/07/19 23:10 Sodium Level 138 mmol/L (136-145) Potassium Level 4.5 mmol/L (3.5-5.1) Chloride Level 105 mmol/L (98-107) Carbon Dioxide Level 21 mmol/L (21-32) Anion Gap 12 (6-14) Blood Urea Nitrogen 33 mg/dL (7-20) Creatinine 0.9 mg/dL (0.6-1.0) Estimated GFR (Cockcroft-Gault) 59.4 Glucose Level 256 mg/dL (70-99) Calcium Level 9.1 mg/dL (8.5-10.1) Phosphorus Level 2.6 mg/dL (2.6-4.7) Magnesium Level 1.9 mg/dL (1.8-2.4) Glucose (Fingerstick) 218 mg/dL (70-99) 204 mg/dL (70-99) 198 mg/dL (70-99) Test 08/08/19 07:09 Glucose (Fingerstick) 230 mg/dL (70-99) Laboratory Tests Test 08/07/19 13:54 08/07/19 18:01 08/07/19 23:10 08/08/19 07:09 Glucose (Fingerstick) 218 mg/dL (70-99) 204 mg/dL (70-99) 198 mg/dL (70-99) 230 mg/dL (70-99) Problem List Problems Medical Problems: (1) Acute CVA (cerebrovascular accident) Status: Acute (2) Acute encephalopathy Status: Acute (3) CLAY (acute kidney injury) Status: Acute (4) Altered mental status Status: Acute (5) Aphasia Status: Acute (6) Confusion Status: Chronic (7) DM (diabetes mellitus) Status: Chronic (8) Fall Status: Acute (9) HTN (hypertension) Status: Chronic (10) Metabolic encephalopathy Status: Acute (11) Occlusion of left internal carotid artery Status: Acute (12) Old cerebrovascular accident (CVA) without late effect Status: Acute (13) Right sided weakness Status: Acute (14) UTI (urinary tract infection) Status: Acute Assessment/Plan no family currently present reviewed Palliative note--no decisions yet will ACE VELASQUEZ BUSINESS CONTINUITY STRATEGY DIRECTOR Aug 08, 2019 07:57
[2019-08-08] MEDS: CARVEDILOL 6.25 MG TABLET. PO SCH ×2 (08:00→17:00)
--- NOTE | 2019-08-08 08:37 | PDOC ---
PROGRESS NOTES Chief Complaint Chief Complaint Acute CVA - s/p tPA, was admitted to ICU, Acute metabolic and toxic encephalopathy CVA syndrome + UTI. 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 Gen weakness - [facility] on the works Dysphagia persistent HUge hiatal hernia, precluded so and PEG DNR ACUTE DIFFUSE MACULOPAPULAR RASH , PRURITIC - HYPERSENSITIVITY REACTION? - 08/05/19 History of Present Illness History of Present Illness Transferred from ICU post TPA for CVA Still dysphagia, HUGE hiatal hernia, failed attempted so and pEG (Peg attempted 11.8) SO no w PICC inserted 08/05 and tpn BUT NOW diffuse maculopapular rash, pruritic, mostly on anterior chest , belly back GEtting benadryl IV ALlergy only listed is to ancef, and NOT on abx ID involved, staph is likely contaminant 1/4 bottles E coli treated - so ff abx now Some confusion. She continues to undress. D/w renetta her overall poor prognosis and need to consider palliative/hospice Minimal response to verbal stimuli Limited options with TPN. G-tube would require surgical placement. Hospice/comfort care discussed as option. Palliative care has gotten permission from Ronald to look at options for group home placement and also spoke with Jean-Pierre gray. He has discussed care with his brother Ronald. Understand risk of surgical placement of J tube would be high--bleeding, infections, further complications. They would like to focus on her comfort. Renetta Morejon and Ronald would like group home with hospice. Jean-Pierre will not be available until after 1529 tomorrow. I have d/w Dioni and Freddy, friends of patient with permission from renetta that g- tube placement is dangerous in her state and ethically likely inappropriate given her mental state with prior CVAs PLAN: TPN, PICC DNR Travis palmer Spoke with Deanne CASAS. Patient has been accepted at [place] with Hospice tomorrow after 1529 Vitals Vitals Vital Signs Date Time Temp Pulse Resp B/P (MAP) Pulse Ox O2 Delivery O2 Flow Rate FiO2 08/08/19 07:00 97.8 84 16 147/64 (91) 95 Room Air 97.8 Physical Exam General: Other (sleeping) Heart: Regular rate, Normal S1, Normal S2 Lungs: Clear Abdomen: Soft Extremities: No clubbing, No cyanosis Skin: No rashes, No breakdown, No significant lesion Labs LABS Laboratory Tests Test 08/07/19 13:54 08/07/19 18:01 08/07/19 23:10 08/08/19 07:09 Glucose (Fingerstick) 218 mg/dL (70-99) 204 mg/dL (70-99) 198 mg/dL (70-99) 230 mg/dL (70-99) Assessment and Plan Assessmemt and Plan Problems Medical Problems: (1) Acute CVA (cerebrovascular accident) Status: Acute (2) Acute encephalopathy Status: Acute (3) CLAY (acute kidney injury) Status: Acute (4) Altered mental status Status: Acute (5) Aphasia Status: Acute (6) Confusion Status: Chronic (7) DM (diabetes mellitus) Status: Chronic (8) Fall Status: Acute (9) HTN (hypertension) Status: Chronic (10) Metabolic encephalopathy Status: Acute (11) 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 Labs Laboratory Tests Test 08/07/19 04:30 08/07/19 13:54 08/07/19 18:01 08/07/19 23:10 Sodium Level 138 mmol/L (136-145) Potassium Level 4.5 mmol/L (3.5-5.1) Chloride Level 105 mmol/L (98-107) Carbon Dioxide Level 21 mmol/L (21-32) Anion Gap 12 (6-14) Blood Urea Nitrogen 33 mg/dL (7-20) Creatinine 0.9 mg/dL (0.6-1.0) Estimated GFR (Cockcroft-Gault) 59.4 Glucose Level 256 mg/dL (70-99) Calcium Level 9.1 mg/dL (8.5-10.1) Phosphorus Level 2.6 mg/dL (2.6-4.7) Magnesium Level 1.9 mg/dL (1.8-2.4) Glucose (Fingerstick) 218 mg/dL (70-99) 204 mg/dL (70-99) 198 mg/dL (70-99) Test 08/08/19 07:09 Glucose (Fingerstick) 230 mg/dL (70-99) Laboratory Tests Test 08/07/19 13:54 08/07/19 18:01 08/07/19 23:10 08/08/19 07:09 Glucose (Fingerstick) 218 mg/dL (70-99) 204 mg/dL (70-99) 198 mg/dL (70-99) 230 mg/dL (70-99) Microbiology 07/29/19 Blood Culture - Final, Complete NO GROWTH AFTER 5 DAYS 07/28/19 Urine Culture - Final, Complete 07/28/19 Urine Culture Result 1 (ANTONIETA) - Final, Complete 07/28/19 Antimicrobic Susceptibility - Final, Complete Medications Current Medications Ketorolac Tromethamine (Toradol 30mg Vial) 30 mg 1X ONCE IV Last administered on 07/28/19at 23:38; Start 07/28/19 at 23:30; Stop 07/28/19 at 23:31; Status DC Ceftriaxone Sodium (Rocephin) 1 gm 1X ONCE IVP Last administered on 07/29/19at 00:53; Start 07/28/19 at 23:45; Stop 07/28/19 at 23:46; Status DC Ondansetron HCl (Zofran) 4 mg PRN Q8HRS PRN IV NAUSEA/VOMITING; Start 07/29/19 at 00:00; Stop 07/29/19 at 08:42; Status DC Acetaminophen (Tylenol) 650 mg PRN Q4HRS PRN PO FEVER; Start 07/29/19 at 00:00; Stop 07/29/19 at 08:42; Status DC Alteplase, Recombinant 0 ml @ 0 mls/hr 1X ONCE IV ; Start 07/29/19 at 00:45; Stop 07/29/19 at 00:46; Status UNV Alteplase, Recombinant 0 ml @ 0 mls/hr Q1H IV ; Start 07/29/19 at 00:45; Stop 1 09/28/18 at 00:46; Status UNV Sodium Chloride 50 ml @ 0 mls/hr 1X ONCE IV ; Start 07/29/19 at 00:45; Stop 07/29/19 at 00:46; Status UNV Labetalol HCl (Normodyne Iv Push) 10 mg PRN Q10MIN PRN IVP HYPERTENSION; Start 07/29/19 at 00:45; Status UNV Nicardipine HCl 50 mg/Sodium Chloride 250 ml @ 25 mls/hr CONT PRN PRN IV HYPERTENSION; Start 07/29/19 at 00:45; Status UNV Labetalol HCl (Normodyne Iv Push) 10 mg PRN Q10MIN PRN IVP HYPERTENSION Last administered on 07/29/19at 14:06; Start 07/29/19 at 00:45 Nicardipine HCl 50 mg/Sodium Chloride 250 ml @ 25 mls/hr CONT PRN PRN IV HYPERTENSION; Start 07/29/19 at 00:45; Stop 07/31/19 at 17:20; Status DC Acetaminophen (Tylenol) 650 mg PRN Q6HRS PRN PO MILD PAIN / TEMP; Start 07/29/19 at 00:45 Acetaminophen (Tylenol Supp) 325 mg PRN Q6HRS PRN KS MILD PAIN / TEMP Last administered on 08/06/19at 22:54; Start 07/29/19 at 00:45 Ondansetron HCl (Zofran) 4 mg PRN Q6HRS PRN IV NAUSEA/VOMITING; Start 07/29/19 at 00:45 Alteplase, Recombinant 5.7 ml @ 342 mls/hr 1X ONCE IV Last administered on 07/29/19at 01:00; Start 07/29/19 at 01:00; Stop 07/29/19 at 01:01; Status DC Alteplase, Recombinant 51 ml @ 51 mls/hr Q1H IV Last administered on 07/29/19at 01:08; Start 07/29/19 at 01:00; Stop 07/29/19 at 01:59; Status DC Sodium Chloride 50 ml @ 200 mls/hr 1X ONCE IV Last administered on 07/29/19at 01:04; Start 07/29/19 at 01:00; Stop 07/29/19 at 01:14; Status DC Iohexol (Omnipaque 300 Mg/ml) 50 ml 1X ONCE IV Last administered on 07/29/19at 01:34; Start 07/29/19 at 01:15; Stop 07/29/19 at 01:16; Status DC Info (CONTRAST GIVEN -- Rx MONITORING) 1 each PRN DAILY PRN MC SEE COMMENTS; Start 07/29/19 at 01:15; Stop 07/31/19 at 01:14; Status DC Carvedilol (Coreg) 6.25 mg BIDWMEALS PO ; Start 07/29/19 at 09:00 Paroxetine HCl (Paxil) 10 mg DAILY PO ; Start 07/29/19 at 09:00 Pantoprazole Sodium (Protonix) 40 mg DAILYAC PO ; Start 07/29/19 at 09:00 Oxybutynin Chloride (Ditropan) 5 mg DAILY PO ; Start 07/29/19 at 09:00 Ceftriaxone Sodium (Rocephin) 1 gm Q24H IVP Last administered on 07/31/19at 22:06; Start 07/29/19 at 19:00; Stop 07/31/19 at 19:01; Status DC Simvastatin (Zocor) 20 mg HS PO ; Start 07/29/19 at 21:00; Stop 07/30/19 at 09:12; Status DC Aspirin (Richard Aspirin) 325 mg DAILYWBKFT PO ; Start 07/30/19 at 08:00; Stop 07/30/19 at 15:13; Status DC Atorvastatin Calcium (Lipitor) 40 mg QHS PO ; Start 07/30/19 at 21:00; Stop 08/05/19 at 20:42; Status DC Aspirin (Aspirin Rectal Supp) 300 mg DAILY KS Last administered on 08/07/19at 10:09; Start 07/30/19 at 15:30 Amino Acids/ Glycerin/ Electrolytes 1,000 ml @ 80 mls/hr [id number] IV Last administered on 08/05/19at 18:16; Start 07/31/19 at 13:00; Stop 08/05/19 at 21:56; Status DC Barium Sulfate (Varibar Thin Liquid Apple) 148 gm 1X ONCE PO Last administered on 08/03/19at 14:00; Start 08/03/19 at 14:00; Stop 08/03/19 at 14:01; Status DC Cefazolin Sodium 1 gm/Dextrose 100 ml @ 200 mls/hr 1X PREOP ONCE IV ; Start 08/04/19 at 09:00; Stop 08/04/19 at 09:29; Status UNV Cefazolin Sodium 50 ml @ 100 mls/hr 1X PREOP PRN IV PRIOR TO PROCEDURE Last administered on 08/04/19at 08:55; Start 08/04/19 at 09:00; Stop 08/04/19 at 09:01; Status DC Ringer's Solution 1,000 ml @ 75 mls/hr 1X ONCE IV Last administered on 08/04/19at 08:00; Start 08/04/19 at 08:00; Stop 08/04/19 at 21:19; Status DC Ringer's Solution 1,000 ml @ 50 mls/hr Q20H IV ; Start 08/04/19 at 08:17; Stop 08/04/19 at 20:16; Status DC Morphine Sulfate (Morphine Sulfate) 1 mg PRN Q2HR PRN IV PAIN Last administered on 08/08/19at 02:53; Start 08/04/19 at 08:45 Propofol 20 ml @ As Directed STK-MED ONCE IV ; Start 08/04/19 at 08:54; Stop 08/04/19 at 08:54; Status DC Lidocaine HCl (Lidocaine Pf 2% Vial) 5 ml STK-MED ONCE .ROUTE ; Start 08/04/19 at 08:54; Stop 08/04/19 at 08:54; Status DC Iohexol (Omnipaque 300 Mg/ml) 75 ml 1X ONCE IV Last administered on 08/04/19at 11:48; Start 08/04/19 at 11:00; Stop 08/04/19 at 11:01; Status DC Info (CONTRAST GIVEN -- Rx MONITORING) 1 each PRN DAILY PRN MC SEE COMMENTS; Start 08/04/19 at 11:00; Stop 08/06/19 at 10:59; Status DC Diphenhydramine HCl (Benadryl) 25 mg PRN Q6HRS PRN IVP ITCHING Last administered on 08/07/19at 17:36; Start 08/04/19 at 22:00 Haloperidol Lactate (Haldol Inj) 5 mg PRN Q6HRS PRN IVP AGITATION 2ND CHOICE; Start 08/05/19 at 08:15 Info (Tpn Per Pharmacy) 1 each PRN DAILY PRN MC SEE COMMENTS Last administered on 08/07/19at 14:32; Start 08/05/19 at 09:15 Sodium Chloride 90 meq/Potassium Chloride 50 meq/ Potassium Phosphate 13.6 mmol/Magnesium Sulfate 10 meq/ Calcium Gluconate 10 meq/ Multivitamins 10 ml/Chromium/ Copper/Manganese/ Seleni/Zn 1 ml/ Total Parenteral Nutrition/Amino Acids/Dextrose/ Fat Emulsion Intravenous 1,512 ml @ 63 mls/hr TPN CONT IV Last administered on 08/05/19at 21:31; Start 08/05/19 at 22:00; Stop 08/06/19 at 21:59; Status DC Lorazepam (Ativan Inj) 1 mg PRN Q4HRS PRN IVP ANXIETY / AGITATION Last administered on 08/06/19at 20:08; Start 08/06/19 at 08:45 Sodium Chloride 90 meq/Potassium Chloride 50 meq/ Potassium Phosphate 13.6 mmol/Magnesium Sulfate 10 meq/ Calcium Gluconate 10 meq/ Multivitamins 10 ml /Chromium/ Copper/Manganese/ Seleni/Zn 1 ml/ Total Parenteral Nutrition/Amino Acids/Dextrose/ Fat Emulsion Intravenous 1,512 ml @ 63 mls/hr TPN CONT IV Last administered on 08/06/19at 20:07; Start 08/06/19 at 22:00; Stop 08/07/19 at 21:59; Status DC Methylprednisolone Sodium Succinate (SOLU-Medrol 125MG VIAL) 125 mg 1X ONCE IV Last administered on 08/06/19at 11:36; Start 08/06/19 at 11:30; Stop 08/06/19 at 11:31; Status DC Methylprednisolone Sodium Succinate (SOLU-Medrol 40MG VIAL) 40 mg Q12HR IV Last administered on 08/07/19at 20:56; Start 08/06/19 at 21:00 Sodium Chloride 90 meq/Potassium Chloride 50 meq/ Potassium Phosphate 18 mmol/ Magnesium Sulfate 10 meq/Calcium Gluconate 10 meq/ Multivitamins 10 ml/Chromium/ Copper/Manganese/ Seleni/Zn 1 ml/ Total Parenteral Nutrition/Amino Acids/Dextrose/ Fat Emulsion Intravenous 1,512 ml @ 63 mls/hr TPN CONT IV Last administered on 08/07/19at 22:31; Start 08/07/19 at 22:00; Stop 08/08/19 at 21:59 Active Scripts Active Culturelle (Lactobacillus Rhamnosus Gg) 1 Each Cap.sprink 1 Cap PO BID 14 Days Reported Tramadol Hcl 50 Mg Tablet 50 Mg PO Q6HRS PRN Ranitidine Hcl 150 Mg Capsule 150 Mg PO BID Paroxetine Hcl 10 Mg Tablet 10 Mg PO DAILY Oxybutynin Chloride Er (Oxybutynin Chloride) 5 Mg Tab.er.24 1 Tab PO DAILY Prilosec Otc (Omeprazole Magnesium) 20 Mg Tablet.dr 2 Tab PO DAILY Meloxicam 7.5 Mg Tablet 1 Tab PO DAILY Carvedilol (Carvedilol) 6.25 Mg Tablet 6.25 Mg PO BIDWMEALS Vitals/I & O Vital Sign - Last 24 Hours 08/07/19 08/07/19 08/07/19 08/07/19 10:52 15:00 19:00 20:00 Temp 97.8 97.6 97.1 97.8 97.6 97.1 Pulse 82 79 87 Resp 16 16 17 B/P (MAP) 121/57 (78) 158/74 (102) 148/67 (94) Pulse Ox 94 93 95 O2 Delivery Room Air Room Air Room Air Room Air 08/07/19 08/07/19 08/07/19 08/08/19 22:59 23:00 23:29 02:53 Temp 97.9 97.9 Pulse 87 Resp 17 B/P (MAP) 143/53 (83) Pulse Ox 93 O2 Delivery Room Air Room Air Room Air Room Air 08/08/19 08/08/19 08/08/19 03:00 03:23 07:00 Temp 98.5 97.8 98.5 97.8 Pulse 84 84 Resp 18 16 B/P (MAP) 142/64 (90) 147/64 (91) Pulse Ox 93 95 O2 Delivery Room Air Room Air Room Air Intake and Output 08/07/19 08/07/19 08/08/19 14:59 22:59 06:59 Intake Total 1512 ml Output Total 350 ml Balance 1512 ml -350 ml Nutrition Consultation Dietary Evaluation: Recommendations by RD: Dietary education by RD, PPN/TPN Comments: REC continue TPN Expected Outcomes/Goals: to meet >65% est nutr needs via TPN Malnutrition Findings: Body Fat Depletion (Non Severe: Mod to Severe Weight Status: Appropriate JAYDEN ESCOBAR MD Aug 08, 2019 08:37
[2019-08-08] MEDS: OXYBUTYNIN CHLORIDE 5 MG TABLET PO SCH (09:00)
[2019-08-08] MEDS: PARoxetine 10 MG TABLET PO SCH (09:00)
--- NOTE | 2019-08-08 09:40 | PDOC ---
Objective: Objective: Reviewed chart. Vital Signs: Vital Signs Date Time Temp Pulse Resp B/P (MAP) Pulse Ox O2 Delivery O2 Flow Rate FiO2 08/08/19 07:00 97.8 84 16 147/64 (91) 95 Room Air 97.8 Labs: Laboratory Tests Test 08/07/19 13:54 08/07/19 18:01 08/07/19 23:10 08/08/19 07:09 Glucose (Fingerstick) 218 mg/dL 204 mg/dL 198 mg/dL 230 mg/dL PE: GEN: NAD NEURO/PSYCH: sleeping, not awakened A/P: CVA, dysphagia, hiatal hernia - NPO on TPN -- Awaiting family decisions. VIANCA CHAMPAGNE Aug 08, 2019 09:40
[2019-08-08] MEDS: ASPIRIN RECTAL 300 MG SUPP. PR SCH (10:01)
[2019-08-08] MEDS: methylPREDNISolone SOD SUCC PF 40 MG/ML VIAL. IV SCH ×2 (10:01→20:16)
[2019-08-08 11:00] VITALS: BP 139/63
--- NOTE | 2019-08-08 12:42 | PDOC2 ---
PALLIATIVE CARE Palliative Care Note Palliative Care Patient opens eyes to verbal stimuli. Attempts to verbalize. Spoke with Jean-Pierre son. He has discussed care with his brother Ronald. Understand risk of surgical placement of J tube would be high--bleeding, infections, further complications. They would like to focus on her comfort. Sons Jean-Pierre and Ronald would like snf with hospice. Jean-Pierre does not want to see her "lay around on machines" "want her kept comfortable" Informed that Deanne CASAS is working on discharge plan. Informed that he will need to sign documents provided by [facility] and Hospice. Jean-Pierre will not be available until after 1529 tomorrow. Jean-Pierre has no preference of Hospice Agency. Spoke with Dr. Rosas who spoke with Dioni and Freddy, friends of patient. Reviewed current medical information and options; risks and benefits of J tube. Informed that sons will be making decisions. Dioni and Freddy do not want to see patient suffer. Spoke with Deanne CASAS. Patient has been accepted at [place] with Hospice. Informed Dr. Rosas. Plan discharge tomorrow after son can sign documents --likely after 1529. Above reviewed with DENIZ Becker APRN. Aug 08, 2019 12:42
[2019-08-08] MEDS: TPN PER PHARMACY MC PRN (13:00)
[2019-08-08] MEDS ORDERED: ATROPINE 1% OPHTH SOLUTION 5ML BOTTLE. SL PRN (13:45)
[2019-08-08] MEDS ORDERED: LORazepam INTENSOL 2 MG/ML ORAL.CONC SL PRN (13:45)
[2019-08-08] MEDS ORDERED: MORPHINE SULFATE 20 MG/ML CONC SOLUTION. PO/SL PRN (13:45)
[2019-08-08] MEDS ORDERED: BISACODYL 10 MG SUPP.RECT. PR PRN (13:45)
[2019-08-08] MEDS ORDERED: SODIUM PHOSPHATES 19/7GM 133 ML ENEMA. PR PRN (13:45)
--- NOTE | 2019-08-08 17:44 | PDOC ---
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 Acute several small subcentimeter bilateral cortical based acute ischemic infarcts involving the parasagittal posterior frontal lobes and parietal lobes in the anterior cerebral artery territories. Aphasia on 07/28/19 s/p TPA. Dysphagia. Right side weakness. Metabolic encephalopathy. Confusion. HTN. DM. 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 RECOMMENDATIONS/PLAN: TPA administrated on 07/28/19. ASA 300 mg rectal due to not able to swallow. Statin HS. Palliative care team consulted. PEG issues, not a candidate due to hiatal hernia. J tube issues. Decision per her and her family. History of Present Illness This is an 88-year-old female patient with above medical diseases has not been feeling well in [facility] past 3 days described as tiredness and weakness in one side sometime and other side other times then the entire body. She had a fall at home. EMS was called for altered mental status associated with the fall. However upon further discussion patient has had fall a few days ago with bruising to left side of her head. Patient was initially alert and oriented 3. She follows commands appropriately. NIH of 3 however non-unilateral deficit. While in [facility] ER, she was noted to have new symptoms of aphasia and her NIH score became 6. She was thought to have acute CVA and TPA was offered to her after all criteria were met. Her CTA showed high grade stenosis and occlusion of left ICA. 08/08/19: Still encephalopathic, but able to say a few words. Past Medical History Cardiovascular: HTN Pulmonary: No pertinent hx CENTRAL NERVOUS SYSTEM: CVA GI: GERD Heme/Onc: No pertinent hx Hepatobiliary: No pertinent hx Musculoskeletal: Osteoarthritis Rheumatologic: No pertinent hx Infectious disease: No pertinent hx ENT: No pertinent hx Renal/: No pertinent hx, UTI Endocrine: No pertinent hx Dermatology: No pertinent hx Past Surgical History No major surgery recently. Family History Heart Disease ALLERGY: NKDA MEDICATIONS: Refer to [facility] SOCIAL HISTORY: Denies current smoking, drinking, and illicit drug use. REVIEW OF SYSTEMS: Constitutional: No malnutrition, weight loss, cachexia. Head: No traumatic brain or head injury. Skin: No edema, or rash. Ear: No infection, tinnitus. Eyes: No vision loss or color blindness. Nose: No bleeding or purulent discharges. Hearing: Hearing decrease. Neck: No injury. Breast: No history of cancer, masses,or discharges. Cardiac: HTN. Pulmonary: No COPD. GI: GERD. Urinary/genital: UTI. Endocrinologic: Diabetes Mellitus. Skeletomuscular: Generalized weakness. Neurological: see HP. Psychiatric: Denies drug use/abuse. Otherwise, not [id number] review of systems. PHYSICAL EXAMINATION: General appearance is in subacute distress. HEENT: Normocephalic and nontraumatic. Eyes, nose, ears, and throat are unremarkable. Neck is supple. No lymphadenopathy. No crepitus. Cardiovascular: S1, S2, regular rate and rhythm. Pulmonary: mildly decreased to auscultation bilaterally. Abdomen: Bowel sounds are positive. Extremities: No rash, lesions, or edema. Restriction of range of motion in right UE. NEUROLOGICAL EXAMINATION: Awake form time to time. Able to follow 1-2 commands. Not oriented to time, place and person. PERRL. EOMI. CN: Right side VII palsy. Muscle tone: Increased in right side. Muscle strength: 1-2 right UE and 3 LE. 5- left side. DTR: 2-3 right UE, 1-2 the rest. Plantar reflex: weak extensor response in right side. Gait: not able to walk. Sensory exam: Decreased in right UE. No other acute cerebellar signs. Objective Objective Vital Signs Date Time Temp Pulse Resp B/P (MAP) Pulse Ox O2 Delivery O2 Flow Rate FiO2 08/08/19 11:00 98.4 89 16 139/63 (88) 94 Room Air 98.4 Intake and Output 08/08/19 07:00 Intake Total 1512 ml Output Total 350 ml Balance 1162 ml Intake Oral 0 ml IV Total 1512 ml Output Urine Total 350 ml # Voids 1 Vitals Signs Vitals VS - Last 72 Hours, by Label Date Time Temp Pulse Resp B/P (MAP) Pulse Ox O2 Delivery O2 Flow Rate FiO2 08/08/19 11:00 98.4 89 16 139/63 (88) 94 Room Air 98.4 08/08/19 10:50 18 95 Room Air 08/08/19 10:19 16 95 Room Air 08/08/19 08:00 Room Air 08/08/19 07:00 97.8 84 16 147/64 (91) 95 Room Air 97.8 08/08/19 03:23 Room Air 08/08/19 03:00 98.5 84 18 142/64 (90) 93 Room Air 98.5 08/08/19 02:53 Room Air 08/07/19 23:29 Room Air 08/07/19 23:00 97.9 87 17 143/53 (83) 93 Room Air 97.9 08/07/19 22:59 Room Air 08/07/19 20:00 Room Air 08/07/19 19:00 97.1 87 17 148/67 (94) 95 Room Air 97.1 08/07/19 15:00 97.6 79 16 158/74 (102) 93 Room Air 97.6 08/07/19 10:52 97.8 82 16 121/57 (78) 94 Room Air 97.8 08/07/19 08:00 Room Air 08/07/19 07:00 99.2 108 20 137/58 (84) 92 Room Air 99.2 Laboratory Laboratory Laboratory Tests Test 08/07/19 18:01 08/07/19 23:10 08/08/19 07:09 08/08/19 11:04 Glucose (Fingerstick) 204 mg/dL (70-99) 198 mg/dL (70-99) 230 mg/dL (70-99) 194 mg/dL (70-99) Test 08/08/19 16:30 Glucose (Fingerstick) 237 mg/dL (70-99) Microbiology 07/29/19 Blood Culture - Final, Complete NO GROWTH AFTER 5 DAYS 07/28/19 Urine Culture - Final, Complete 07/28/19 Urine Culture Result 1 (ANTONIETA) - Final, Complete 07/28/19 Antimicrobic Susceptibility - Final, Complete Medication Medications Current Medications Atropine Sulfate (Isopto Atropine) 2 drop PRN Q4HRS PRN SL SECRETIONS; Start 08/08/19 at 13:45 Bisacodyl (Dulcolax Supp) 10 mg PRN Q72HRS PRN [place] CONSTIPATION, 1st CHOICE; Start 08/08/19 at 13:45 Lorazepam (Ativan Intensol) 2 mg PRN Q6HRS PRN SL ANXIETY / AGITATION; Start 08/08/19 at 13:45 Morphine Sulfate (Roxanol Conc) 5 mg PRN Q2HRS PRN PO/SL MODERATE PAIN OR DYSPNEA; Start 08/08/19 at 13:45 Sodium Monofluorophosphate (Fleet Adult) 133 ml PRN Q72HRS PRN [place] CONSTIPATION, 2nd CHOICE; Start 08/08/19 at 13:45 Sodium Chloride 90 meq/Potassium Chloride 50 meq/ Potassium Phosphate 18 mmol/ Magnesium Sulfate 10 meq/Calcium Gluconate 10 meq/ Multivitamins 10 ml/Chromium/ Copper/Manganese/ Seleni/Zn 1 ml/ Total Parenteral Nutrition/Amino Acids/Dextrose/ Fat Emulsion Intravenous 1,512 ml @ 63 mls/hr TPN CONT IV Last administered on 08/07/19at 22:31; Start 08/07/19 at 22:00; Stop 08/08/19 at 21:59 Sodium Chloride 90 meq/Potassium Chloride 50 meq/ Potassium Phosphate 18 mmol/ Magnesium Sulfate 10 meq/Calcium Gluconate 10 meq/ Multivitamins 10 ml/Chromium/ Copper/Manganese/ Seleni/Zn 1 ml/ Total Parenteral Nutrition/Amino Acids/Dextrose/ Fat Emulsion Intravenous 1,512 ml @ 63 mls/hr TPN CONT IV ; Start 08/08/19 at 22:00; Stop 08/09/19 at 21:59 Comment Review of Relevant I have reviewed the following items shannan (where applicable) has been applied. JACQUE WINKLER MD Aug 08, 2019 17:44
[2019-08-08 19:00] VITALS: BP 123/48
[2019-08-08] MEDS ORDERED: AMINO ACID IV SCH ×10 (22:00)
[2019-08-08] MEDS ORDERED: [UNRECOGNIZED DRUG - OTHER] IV SCH ×10 (22:00)
[2019-08-08] MEDS ORDERED: DEXTROSE 70% IV SCH ×10 (22:00)
[2019-08-08] MEDS ORDERED: TOTAL PARENTERAL NUTRITION IV SCH ×10 (22:00)
[2019-08-09] MEDS: MORPHINE SULFATE 2 MG/ML VIAL. IV PRN ×2 (03:55→12:09)
[2019-08-09 05:43] LABS: CALCIUM 8.8 mg/dL (8.5-10.1); CREATININE 0.9 mg/dL (0.6-1.0); GFR 59.4; MAGNESIUM 1.9 mg/dL (1.8-2.4); PHOSPHORUS 4.2 mg/dL (2.6-4.7); POTASSIUM 4.6 mmol/L (3.5-5.1)
[2019-08-09 07:00] VITALS: BP 145/63
[2019-08-09] MEDS: CARVEDILOL 6.25 MG TABLET. PO SCH (07:27)
[2019-08-09] MEDS: PANTOPRAZOLE 40 MG TABLET.DR. PO SCH (07:27)
[2019-08-09] MEDS: OXYBUTYNIN CHLORIDE 5 MG TABLET PO SCH (08:55)
[2019-08-09] MEDS: PARoxetine 10 MG TABLET PO SCH (08:56)
[2019-08-09] MEDS: ASPIRIN RECTAL 300 MG SUPP. PR SCH (10:10)
[2019-08-09] MEDS: methylPREDNISolone SOD SUCC PF 40 MG/ML VIAL. IV SCH (10:10)
[2019-08-09 10:59] VITALS: BP 159/57
--- NOTE | 2019-08-09 11:44 | PDOC ---
Objective: Objective: Reviewed PC note - Patient has been accepted at [facility]. Plan discharge after son can sign documents--likely after 1530 (08/09). Nurse thinks probable DC today. Vital Signs: Vital Signs Date Time Temp Pulse Resp B/P (MAP) Pulse Ox O2 Delivery O2 Flow Rate FiO2 08/09/19 10:59 98.0 96 18 159/57 (91) 93 Room Air 98.0 Labs: Laboratory Tests Test 08/08/19 16:30 08/08/19 20:25 08/09/19 04:30 08/09/19 07:03 Glucose (Fingerstick) 237 mg/dL 228 mg/dL 236 mg/dL Sodium Level 139 mmol/L Potassium Level 4.6 mmol/L Chloride Level 106 mmol/L Carbon Dioxide Level 21 mmol/L Anion Gap 12 Blood Urea Nitrogen 45 mg/dL Creatinine 0.9 mg/dL Estimated GFR (Cockcroft-Gault) 59.4 Glucose Level 256 mg/dL Calcium Level 8.8 mg/dL Phosphorus Level 4.2 mg/dL Magnesium Level 1.9 mg/dL Test 08/09/19 11:21 Glucose (Fingerstick) 219 mg/dL PE: GEN: NAD NEURO/PSYCH: not awakened A/P: CVA, dysphagia, hiatal hernia -- Plans for Hospice as above, GI will sign off. VIANCA CHAMPAGNE Aug 09, 2019 11:44
[2019-08-09] MEDS ORDERED: ATRO2DRO3 SL (13:04)
[2019-08-09] MEDS ORDERED: MORP100S3 PO/SL (13:04)
[2019-08-09] MEDS ORDERED: LORA2ORA7 SL (13:04)
--- NOTE | 2019-08-09 13:06 | SNU/HH DC ---
DISCHARGE ORDERS DISCHARGE INFORMATION: DISCHARGE DATE: Aug 09, 2019 FINAL DIAGNOSIS Problems Medical Problems: (1) Acute CVA (cerebrovascular accident) Status: Acute (2) Acute encephalopathy Status: Acute (3) CLAY (acute kidney injury) Status: Acute (4) Altered mental status Status: Acute (5) Aphasia Status: Acute (6) Confusion Status: Chronic (7) DM (diabetes mellitus) Status: Chronic (8) Fall Status: Acute (9) HTN (hypertension) Status: Chronic (10) Metabolic encephalopathy Status: Acute (11) Occlusion of left internal carotid artery Status: Acute (12) Old cerebrovascular accident (CVA) without late effect Status: Acute (13) Right sided weakness Status: Acute (14) UTI (urinary tract infection) Status: Acute CONDITION ON DISCHARGE: Guarded (EMERGENCY INFORMATION SECURITY OFFICER CARE ADMISSION) CODE STATUS: Code Status: DNR/DNI POST DISCHARGE ORDERS: ACTIVITY ORDERS: Activity as tolerated WEIGHT BEARING STATUS: Partial weight bearing, Touch down weight bearing DIET AFTER DISCHARGE: Cardiac CHECKS AFTER DISCHARGE: CHECKS AFTER DISCHARGE: Check blood press - daily FOLLOW-UP: PHYSICIAN FOLLOW-UP: HOSPICE REFERRAL Additional Instructions: EMERGENCY INFORMATION SECURITY OFFICER CARE ADMISSION TREATMENT/EQUIPMENT ORDERS: ADAPTIVE EQUIPMENT NEEDED: Front wheeled walker RESPIRATORY EQUIPMENT NEEDED: Oxygen DISCHARGE MEDICATIONS: Home Meds Active Scripts Atropine Sulfate (Atropine Sulfate) 2 Ml Drops, 2 DROP SL PRN Q4HRS PRN for SECRETIONS for 30 Days, #120 DROP Prov:JAYDEN ESCOBAR MD 08/09/19 Morphine Sulfate (MORPHINE SULFATE) 100 Mg/5 Ml Solution, 5 MG PO/SL PRN Q2HRS PRN for MODERATE PAIN OR DYSPNEA for 30 Days, #30 ML Prov:JAYDEN ESCOBAR MD 08/09/19 Lorazepam (LORAZEPAM INTENSOL) 2 Mg/1 Ml Oral.conc, 2 MG SL PRN Q6HRS PRN for ANXIETY / AGITATION for 30 Days, #30 ML 2 Refills Prov:JAYDEN ESCOBAR MD 08/09/19 Reported Medications Meloxicam (MELOXICAM) 7.5 Mg Tablet, 1 TAB PO DAILY for back pain, #30 TAB 2 Refills 08/27/18 Carvedilol (CARVEDILOL ) 6.25 Mg Tablet, 6.25 MG PO BIDWMEALS for CARDIAC, TAB 08/27/18 Discontinued Reported Medications Tramadol Hcl (TRAMADOL HCL) 50 Mg Tablet, 50 MG PO Q6HRS PRN for PAIN, TAB 08/27/18 Ranitidine Hcl (RANITIDINE HCL) 150 Mg Capsule, 150 MG PO BID for heartburn, TAB 08/27/18 Paroxetine Hcl (PAROXETINE HCL) 10 Mg Tablet, 10 MG PO DAILY for depression, TAB 08/27/18 Oxybutynin Chloride (OXYBUTYNIN CHLORIDE ER) 5 Mg Tab.er.24, 1 TAB PO DAILY for overactive bladder, #30 TAB 5 Refills 08/27/18 Omeprazole Magnesium (PRILOSEC OTC) 20 Mg Tablet.dr, 2 TAB PO DAILY for heartburn, #30 TAB 3 Refills 08/27/18 Discontinued Scripts Lactobacillus Rhamnosus Gg (CULTURELLE) 1 Each Cap.sprink, 1 CAP PO BID for supplement gi for 14 Days, #28 CAP Prov:ANDREW FLORES MD 09/01/18 JAYDEN ESCOBAR MD Aug 09, 2019 13:06
--- NOTE | 2019-08-09 13:26 | PDOC ---
PROGRESS NOTES Chief Complaint Chief Complaint Acute CVA - s/p tPA, was admitted to ICU, Acute metabolic and toxic encephalopathy CVA syndrome + UTI. 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 Gen weakness - [facility] on the [facility] Dysphagia persistent HUge hiatal hernia, precluded so and PEG DNR ACUTE DIFFUSE MACULOPAPULAR RASH , PRURITIC - HYPERSENSITIVITY REACTION? - 08/05/19 History of Present Illness History of Present Illness Ms Kelly is an 88yo F w/ PMHx Hypertension, GERD who p/w a fall at home. EMS was called for altered mental status associated with the fall. However upon further discussion patient has had fall a few days ago with bruising to left side of her head. Patient was initially alert and oriented 3. She follows commands appropriately. NIH of 3 however non-unilateral deficit. See stroke scale. Patient complains of nausea. Unknown blood thinning medications. Patient's poor historian, no present family at this time. She denies any chest pain, shortness breath, visual changes. Patient does not live with family she goes back and forth between friends. They state she has had intermittent falls most recently tonight. They also state her speech is intermittently slurred. No exact onset of symptoms appreciated after talking with family. Around midnight patient had a acute change with NIH of 10. Patient had dif ficulty answering questions and would only obey one command. She had concern for facial paralysis, drift of her right upper extremity, mild sensation deficit appreciated to the right as well as moderate aphasia and slurring of words. She has sons who are not involved with her care and she has no power of consumer attorney. She underwent tPA administration and was admitted to ICU for further care per recommendations of stroke center. Transferred from ICU post TPA for CVA Still dysphagia, HUGE hiatal hernia, failed attempted so and pEG (Peg attempted 11.8) SO no w PICC inserted 08/05 and tpn ID involved, staph is likely contaminant /4 bottles, E coli treated - so ff abx now Some confusion. She continues to undress. D/w sons her overall poor prognosis and need to consider palliative/hospice Minimal response to verbal stimuli G-tube would require surgical placement. Hospice/comfort care discussed as option. Palliative care has gotten permission from Ronald to look at options for assisted placement and also spoke with Jean-Pierre son. He has discussed care with his brother Ronald. Understand risk of surgical placement of J tube would be high--bleeding, infections, further complications. They would like to focus on her comfort. Sons Jean-Pierre and Ronald would like assisted with hospice. Jean-Pierre will not be available until 1529 today. I have d/w Dioni and Freddy, friends of patient with permission from sons that g- tube placement is dangerous in her state and ethically likely inappropriate given her mental state with prior CVAs PLAN: DNR HAldol prn Comfort measures Spoke with Deanne CASAS. Patient has been accepted at [facility] with Hospice today after 1529 Vitals Vitals Vital Signs Date Time Temp Pulse Resp B/P (MAP) Pulse Ox O2 Delivery O2 Flow Rate FiO2 08/09/19 10:59 98.0 96 18 159/57 (91) 93 Room Air 98.0 Physical Exam General: Other (sleeping) Heart: Regular rate, Normal S1, Normal S2 Lungs: Clear Abdomen: Soft Extremities: No clubbing, No cyanosis Skin: No rashes, No breakdown, No significant lesion Labs LABS Laboratory Tests Test 08/08/19 16:30 08/08/19 20:25 08/09/19 04:30 08/09/19 07:03 Glucose (Fingerstick) 237 mg/dL (70-99) 228 mg/dL (70-99) 236 mg/dL (70-99) Sodium Level 139 mmol/L (136-145) Potassium Level 4.6 mmol/L (3.5-5.1) Chloride Level 106 mmol/L (98-107) Carbon Dioxide Level 21 mmol/L (21-32) Anion Gap 12 (6-14) Blood Urea Nitrogen 45 mg/dL (7-20) Creatinine 0.9 mg/dL (0.6-1.0) Estimated GFR (Cockcroft-Gault) 59.4 Glucose Level 256 mg/dL (70-99) Calcium Level 8.8 mg/dL (8.5-10.1) Phosphorus Level 4.2 mg/dL (2.6-4.7) Magnesium Level 1.9 mg/dL (1.8-2.4) Test 08/09/19 11:21 Glucose (Fingerstick) 219 mg/dL (70-99) Assessment and Plan Assessmemt and Plan Problems Medical Problems: (1) Acute CVA (cerebrovascular accident) Status: Acute (2) Acute encephalopathy Status: Acute (3) CLAY (acute kidney injury) Status: Acute (4) Altered mental status Status: Acute (5) Aphasia Status: Acute (6) Confusion Status: Chronic (7) DM (diabetes mellitus) Status: Chronic (8) Fall Status: Acute (9) HTN (hypertension) Status: Chronic (10) Metabolic encephalopathy Status: Acute (11) 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 Labs Laboratory Tests Test 08/07/19 13:54 08/07/19 18:01 08/07/19 23:10 08/08/19 07:09 Glucose (Fingerstick) 218 mg/dL (70-99) 204 mg/dL (70-99) 198 mg/dL (70-99) 230 mg/dL (70-99) Test 08/08/19 11:04 08/08/19 16:30 08/08/19 20:25 08/09/19 04:30 Glucose (Fingerstick) 194 mg/dL (70-99) 237 mg/dL (70-99) 228 mg/dL (70-99) Sodium Level 139 mmol/L (136-145) Potassium Level 4.6 mmol/L (3.5-5.1) Chloride Level 106 mmol/L (98-107) Carbon Dioxide Level 21 mmol/L (21-32) Anion Gap 12 (6-14) Blood Urea Nitrogen 45 mg/dL (7-20) Creatinine 0.9 mg/dL (0.6-1.0) Estimated GFR (Cockcroft-Gault) 59.4 Glucose Level 256 mg/dL (70-99) Calcium Level 8.8 mg/dL (8.5-10.1) Phosphorus Level 4.2 mg/dL (2.6-4.7) Magnesium Level 1.9 mg/dL (1.8-2.4) Test 08/09/19 07:03 08/09/19 11:21 Glucose (Fingerstick) 236 mg/dL (70-99) 219 mg/dL (70-99) Laboratory Tests Test 08/08/19 16:30 08/08/19 20:25 08/09/19 04:30 08/09/19 07:03 Glucose (Fingerstick) 237 mg/dL (70-99) 228 mg/dL (70-99) 236 mg/dL (70-99) Sodium Level 139 mmol/L (136-145) Potassium Level 4.6 mmol/L (3.5-5.1) Chloride Level 106 mmol/L (98-107) Carbon Dioxide Level 21 mmol/L (21-32) Anion Gap 12 (6-14) Blood Urea Nitrogen 45 mg/dL (7-20) Creatinine 0.9 mg/dL (0.6-1.0) Estimated GFR (Cockcroft-Gault) 59.4 Glucose Level 256 mg/dL (70-99) Calcium Level 8.8 mg/dL (8.5-10.1) Phosphorus Level 4.2 mg/dL (2.6-4.7) Magnesium Level 1.9 mg/dL (1.8-2.4) Test 08/09/19 11:21 Glucose (Fingerstick) 219 mg/dL (70-99) Microbiology 07/29/19 Blood Culture - Final, Complete NO GROWTH AFTER 5 DAYS 07/28/19 Urine Culture - Final, Complete 07/28/19 Urine Culture Result 1 (ANTONIETA) - Final, Complete 07/28/19 Antimicrobic Susceptibility - Final, Complete Medications Current Medications Ketorolac Tromethamine (Toradol 30mg Vial) 30 mg 1X ONCE IV Last administered on 07/28/19at 23:38; Start 07/28/19 at 23:30; Stop 07/28/19 at 23:31; Status DC Ceftriaxone Sodium (Rocephin) 1 gm 1X ONCE IVP Last administered on 07/29/19at 00:53; Start 07/28/19 at 23:45; Stop 07/28/19 at 23:46; Status DC Ondansetron HCl (Zofran) 4 mg PRN Q8HRS PRN IV NAUSEA/VOMITING; Start 07/29/19 at 00:00; Stop 07/29/19 at 08:42; Status DC Acetaminophen (Tylenol) 650 mg PRN Q4HRS PRN PO FEVER; Start 07/29/19 at 00:00; Stop 07/29/19 at 08:42; Status DC Alteplase, Recombinant 0 ml @ 0 mls/hr 1X ONCE IV ; Start 07/29/19 at 00:45; Stop 07/29/19 at 00:46; Status UNV Alteplase, Recombinant 0 ml @ 0 mls/hr Q1H IV ; Start 07/29/19 at 00:45; Stop 07/29/19 at 00:46; Status UNV Sodium Chloride 50 ml @ 0 mls/hr 1X ONCE IV ; Start 07/29/19 at 00:45; Stop 07/29/19 at 00:46; Status UNV Labetalol HCl (Normodyne Iv Push) 10 mg PRN Q10MIN PRN IVP HYPERTENSION; Start 07/29/19 at 00:45; Status UNV Nicardipine HCl 50 mg/Sodium Chloride 250 ml @ 25 mls/hr CONT PRN PRN IV HYPERTENSION; Start 07/29/19 at 00:45; Status UNV Labetalol HCl (Normodyne Iv Push) 10 mg PRN Q10MIN PRN IVP HYPERTENSION Last administered on 07/29/19at 14:06; Start 07/29/19 at 00:45 Nicardipine HCl 50 mg/Sodium Chloride 250 ml @ 25 mls/hr CONT PRN PRN IV HYPERTENSION; Start 07/29/19 at 00:45; Stop 07/31/19 at 17:20; Status DC Acetaminophen (Tylenol) 650 mg PRN Q6HRS PRN PO MILD PAIN / TEMP; Start 07/29/19 at 00:45 Acetaminophen (Tylenol Supp) 325 mg PRN Q6HRS PRN IA MILD PAIN / TEMP Last administered on 08/06/19at 22:54; Start 07/29/19 at 00:45 Ondansetron HCl (Zofran) 4 mg PRN Q6HRS PRN IV NAUSEA/VOMITING; Start 07/29/19 at 00:45 Alteplase, Recombinant 5.7 ml @ 342 mls/hr 1X ONCE IV Last administered on 07/29/19at 01:00; Start 07/29/19 at 01:00; Stop 07/29/19 at 01:01; Status DC Alteplase, Recombinant 51 ml @ 51 mls/hr Q1H IV Last administered on 07/29/19at 01:08; Start 07/29/19 at 01:00; Stop 07/29/19 at 01:59; Status DC Sodium Chloride 50 ml @ 200 mls/hr 1X ONCE IV Last administered on 07/29/19at 01:04; Start 07/29/19 at 01:00; Stop 07/29/19 at 01:14; Status DC Iohexol (Omnipaque 300 Mg/ml) 50 ml 1X ONCE IV Last administered on 07/29/19at 01:34; Start 07/29/19 at 01:15; Stop 07/29/19 at 01:16; Status DC Info (CONTRAST GIVEN -- Rx MONITORING) 1 each PRN DAILY PRN MC SEE COMMENTS; Start 07/29/19 at 01:15; Stop 07/31/19 at 01:14; Status DC Carvedilol (Coreg) 6.25 mg BIDWMEALS PO ; Start 07/29/19 at 09:00 Paroxetine HCl (Paxil) 10 mg DAILY PO ; Start 07/29/19 at 09:00 Pantoprazole Sodium (Protonix) 40 mg DAILYAC PO ; Start 07/29/19 at 09:00 Oxybutynin Chloride (Ditropan) 5 mg DAILY PO ; Start 07/29/19 at 09:00 Ceftriaxone Sodium (Rocephin) 1 gm Q24H IVP Last administered on 07/31/19at 22:06; Start 07/29/19 at 19:00; Stop 07/31/19 at 19:01; Status DC Simvastatin (Zocor) 20 mg HS PO ; Start 07/29/19 at 21:00; Stop 07/30/19 at 09:12; Status DC Aspirin (Richard Aspirin) 325 mg DAILYWBKFT PO ; Start 07/30/19 at 08:00; Stop 07/30/19 at 15:13; Status DC Atorvastatin Calcium (Lipitor) 40 mg QHS PO ; Start 07/30/19 at 21:00; Stop 08/05/19 at 20:42; Status DC Aspirin (Aspirin Rectal Supp) 300 mg DAILY IA Last administered on 08/09/19at 10:10; Start 07/30/19 at 15:30 Amino Acids/ Glycerin/ Electrolytes 1,000 ml @ 80 mls/hr [id number] IV Last administered on 08/05/19at 18:16; Start 07/31/19 at 13:00; Stop 08/05/19 at 21:56; Status DC Barium Sulfate (Varibar Thin Liquid Apple) 148 gm 1X ONCE PO Last administered on 08/03/19at 14:00; Start 08/03/19 at 14:00; Stop 08/03/19 at 14:01; Status DC Cefazolin Sodium 1 gm/Dextrose 100 ml @ 200 mls/hr 1X PREOP ONCE IV ; Start 08/04/19 at 09:00; Stop 08/04/19 at 09:29; Status UNV Cefazolin Sodium 50 ml @ 100 mls/hr 1X PREOP PRN IV PRIOR TO PROCEDURE Last administered on 08/04/19at 08:55; Start 08/04/19 at 09:00; Stop 08/04/19 at 09:01; Status DC Ringer's Solution 1,000 ml @ 75 mls/hr 1X ONCE IV Last administered on 08/04/19at 08:00; Start 08/04/19 at 08:00; Stop 08/04/19 at 21:19; Status DC Ringer's Solution 1,000 ml @ 50 mls/hr Q20H IV ; Start 08/04/19 at 08:17; Stop 08/04/19 at 20:16; Status DC Morphine Sulfate (Morphine Sulfate) 1 mg PRN Q2HR PRN IV PAIN Last administered on 08/09/19at 12:09; Start 08/04/19 at 08:45 Propofol 20 ml @ As Directed STK-MED ONCE IV ; Start 08/04/19 at 08:54; Stop 08/04/19 at 08:54; Status DC Lidocaine HCl (Lidocaine Pf 2% Vial) 5 ml STK-MED ONCE .ROUTE ; Start 08/04/19 at 08:54; Stop 08/04/19 at 08:54; Status DC Iohexol (Omnipaque 300 Mg/ml) 75 ml 1X ONCE IV Last administered on 08/04/19at 11:48; Start 08/04/19 at 11:00; Stop 08/04/19 at 11:01; Status DC Info (CONTRAST GIVEN -- Rx MONITORING) 1 each PRN DAILY PRN MC SEE COMMENTS; Start 08/04/19 at 11:00; Stop 08/06/19 at 10:59; Status DC Diphenhydramine HCl (Benadryl) 25 mg PRN Q6HRS PRN IVP ITCHING Last administered on 08/07/19at 17:36; Start 08/04/19 at 22:00 Haloperidol Lactate (Haldol Inj) 5 mg PRN Q6HRS PRN IVP AGITATION 2ND CHOICE; Start 08/05/19 at 08:15 Info (Tpn Per Pharmacy) 1 each PRN DAILY PRN MC SEE COMMENTS Last administered on 08/08/19at 13:00; Start 08/05/19 at 09:15 Sodium Chloride 90 meq/Potassium Chloride 50 meq/ Potassium Phosphate 13.6 mmol/Magnesium Sulfate 10 meq/ Calcium Gluconate 10 meq/ Multivitamins 10 ml/Chromium/ Copper/Manganese/ Seleni/Zn 1 ml/ Total Parenteral Nutrition/Amino Acids/Dextrose/ Fat Emulsion Intravenous 1,512 ml @ 63 mls/hr TPN CONT IV Last administered on 08/05/19at 21:31; Start 08/05/19 at 22:00; Stop 08/06/19 at 21:59; Status DC Lorazepam (Ativan Inj) 1 mg PRN Q4HRS PRN IVP ANXIETY / AGITATION Last administered on 08/09/19at 06:23; Start 08/06/19 at 08:45 Sodium Chloride 90 meq/Potassium Chloride 50 meq/ Potassium Phosphate 13.6 mmol/Magnesium Sulfate 10 meq/ Calcium Gluconate 10 meq/ Multivitamins 10 ml/Chromium/ Copper/Manganese/ Seleni/Zn 1 ml/ Total Parenteral Nutrition/Amino Acids/Dextrose/ Fat Emulsion Intravenous 1,512 ml @ 63 mls/hr TPN CONT IV Last administered on 08/06/19at 20:07; Start 08/06/19 at 22:00; Stop 08/07/19 at 21:59; Status DC Methylprednisolone Sodium Succinate (SOLU-Medrol 125MG VIAL) 125 mg 1X ONCE IV Last administered on 08/06/19at 11:36; Start 08/06/19 at 11:30; Stop 08/06/19 at 11:31; Status DC Methylprednisolone Sodium Succinate (SOLU-Medrol 40MG VIAL) 40 mg Q12HR IV Last administered on 08/09/19at 10:10; Start 08/06/19 at 21:00 Sodium Chloride 90 meq/Potassium Chloride 50 meq/ Potassium Phosphate 18 mmol/ Magnesium Sulfate 10 meq/Calcium Gluconate 10 meq/ Multivitamins 10 ml/Chromium/ Copper/Manganese/ Seleni/Zn 1 ml/ Total Parenteral Nutrition/Amino Acids/Dex trose/ Fat Emulsion Intravenous 1,512 ml @ 63 mls/hr TPN CONT IV Last administered on 08/07/19at 22:31; Start 08/07/19 at 22:00; Stop 08/08/19 at 21:59; Status DC Sodium Chloride 90 meq/Potassium Chloride 50 meq/ Potassium Phosphate 18 mmol/ Magnesium Sulfate 10 meq/Calcium Gluconate 10 meq/ Multivitamins 10 ml/Chromium/ Copper/Manganese/ Seleni/Zn 1 ml/ Total Parenteral Nutrition/Amino Acids/Dextrose/ Fat Emulsion Intravenous 1,512 ml @ 63 mls/hr TPN CONT IV Last administered on 08/08/19at 20:16; Start 08/08/19 at 22:00; Stop 08/09/19 at 21:59 Morphine Sulfate (Roxanol Conc) 5 mg PRN Q2HRS PRN PO/SL MODERATE PAIN OR DYS PNEA; Start 08/08/19 at 13:45 Atropine Sulfate (Isopto Atropine) 2 drop PRN Q4HRS PRN SL SECRETIONS; Start 08/08/19 at 13:45 Bisacodyl (Dulcolax Supp) 10 mg PRN Q72HRS PRN IA CONSTIPATION, 1st CHOICE; Start 08/08/19 at 13:45 Sodium Monofluorophosphate (Fleet Adult) 133 ml PRN Q72HRS PRN IA CONSTIPATION, 2nd CHOICE; Start 08/08/19 at 13:45 Lorazepam (Ativan Intensol) 2 mg PRN Q6HRS PRN SL ANXIETY / AGITATION Last administered on 08/08/19at 22:58; Start 08/08/19 at 13:45 Active Scripts Active Atropine Sulfate 2 Ml Drops 2 Drop SL PRN Q4HRS PRN 30 Days Morphine Sulfate 100 Mg/5 Ml Solution 5 Mg PO/SL PRN Q2HRS PRN 30 Days Lorazepam Intensol (Lorazepam) 2 Mg/1 Ml Oral.conc 2 Mg SL PRN Q6HRS PRN 30 Days Reported Meloxicam 7.5 Mg Tablet 1 Tab PO DAILY Carvedilol (Carvedilol) 6.25 Mg Tablet 6.25 Mg PO BIDWMEALS Vitals/I & O Vital Sign - Last 24 Hours 08/08/19 08/08/19 08/08/19 08/08/19 19:00 20:00 22:24 23:00 Temp 98.1 98.1 Pulse 87 Resp 13 16 16 B/P (MAP) 123/48 (73) Pulse Ox 96 96 96 O2 Delivery Room Air Room Air Room Air Room Air 08/09/19 08/09/19 08/09/19 08/09/19 03:55 04:49 07:00 08:00 Temp 98.4 98.4 Pulse 81 Resp 16 16 18 B/P (MAP) 145/63 (90) Pulse Ox 96 93 O2 Delivery Room Air Room Air Room Air Room Air 08/09/19 10:59 Temp 98.0 98.0 Pulse 96 Resp 18 B/P (MAP) 159/57 (91) Pulse Ox 93 O2 Delivery Room Air Intake and Output 08/08/19 08/08/19 08/09/19 15:00 23:00 07:00 Output Total 450 ml 550 ml Balance -450 ml -550 ml Nutrition Consultation Dietary Evaluation: Recommendations by RD: Dietary education by RD, PPN/TPN Comments: REC continue TPN Expected Outcomes/Goals: to meet >65% est nutr needs via TPN Malnutrition Findings: Body Fat Depletion (Non Severe: Mod to Severe Weight Status: Appropriate JAYDEN ESCOBAR MD Aug 09, 2019 13:26
--- NOTE | 2019-08-09 13:33 | PDOC3 ---
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 (12) Old cerebrovascular accident (CVA) without late effect Status: Acute (13) Right sided weakness Status: Acute (14) UTI (urinary tract infection) Status: Acute Brief Hospital Course Allergies Allergies Coded Allergies Type Severity Reaction Last Updated Verified cefazolin Allergy Severe Rash 08/04/19 Yes Vital Signs Vital Signs Date Time Temp Pulse Resp B/P (MAP) Pulse Ox O2 Delivery O2 Flow Rate FiO2 08/09/19 10:59 98.0 96 18 159/57 (91) 93 Room Air 98.0 Lab Results Laboratory Tests Test 08/07/19 13:54 08/07/19 18:01 08/07/19 23:10 08/08/19 07:09 Glucose (Fingerstick) 218 mg/dL (70-99) 204 mg/dL (70-99) 198 mg/dL (70-99) 230 mg/dL (70-99) Test 08/08/19 11:04 08/08/19 16:30 08/08/19 20:25 08/09/19 04:30 Glucose (Fingerstick) 194 mg/dL (70-99) 237 mg/dL (70-99) 228 mg/dL (70-99) Sodium Level 139 mmol/L (136-145) Potassium Level 4.6 mmol/L (3.5-5.1) Chloride Level 106 mmol/L (98-107) Carbon Dioxide Level 21 mmol/L (21-32) Anion Gap 12 (6-14) Blood Urea Nitrogen 45 mg/dL (7-20) Creatinine 0.9 mg/dL (0.6-1.0) Estimated GFR (Cockcroft-Gault) 59.4 Glucose Level 256 mg/dL (70-99) Calcium Level 8.8 mg/dL (8.5-10.1) Phosphorus Level 4.2 mg/dL (2.6-4.7) Magnesium Level 1.9 mg/dL (1.8-2.4) Test 08/09/19 07:03 08/09/19 11:21 Glucose (Fingerstick) 236 mg/dL (70-99) 219 mg/dL (70-99) Laboratory Tests Test 08/08/19 16:30 08/08/19 20:25 08/09/19 04:30 08/09/19 07:03 Glucose (Fingerstick) 237 mg/dL (70-99) 228 mg/dL (70-99) 236 mg/dL (70-99) Sodium Level 139 mmol/L (136-145) Potassium Level 4.6 mmol/L (3.5-5.1) Chloride Level 106 mmol/L (98-107) Carbon Dioxide Level 21 mmol/L (21-32) Anion Gap 12 (6-14) Blood Urea Nitrogen 45 mg/dL (7-20) Creatinine 0.9 mg/dL (0.6-1.0) Estimated GFR (Cockcroft-Gault) 59.4 Glucose Level 256 mg/dL (70-99) Calcium Level 8.8 mg/dL (8.5-10.1) Phosphorus Level 4.2 mg/dL (2.6-4.7) Magnesium Level 1.9 mg/dL (1.8-2.4) Test 08/09/19 11:21 Glucose (Fingerstick) 219 mg/dL (70-99) Brief Hospital Course Ms Kelly is an 88yo F w/ PMHx Hypertension, GERD who p/w a fall at home. EMS was called for altered mental status associated with the fall. However upon further discussion patient has had fall a few days ago with bruising to left side of her head. Patient was initially alert and oriented 3. She follows commands appropriately. NIH of 3 however non-unilateral deficit. See stroke scale. Patient complains of nausea. Unknown blood thinning medications. Patient's poor historian, no present family at this time. She denies any chest pain, shortness breath, visual changes. Patient does not live with family she goes back and forth between friends. They state she has had intermittent falls most recently tonight. They also state her speech is intermittently slurred. No exact onset of symptoms appreciated after talking with family. Around midnight patient had a acute change with NIH of 10. Patient had difficulty answering questions and would only obey one command. She had concern for facial paralysis, drift of her right upper extremity, mild sensation deficit appreciated to the right as well as moderate aphasia and slurring of words. She has sons who are not involved with her care and she has no power of assistant district attorney. She underwent tPA administration and was admitted to ICU for further care per recommendations of stroke center. Seen by neurology, vascular surgery, ID, GI, general surgery, and palliative care. Transferred from ICU post TPA for CVA. Had some minimal improvement. MRI confirmed: 1. Left middle cerebral artery territory infarct involving the left basal ganglia, insula and frontal and parietal lobes including the pre and post central gyri. Separately there are several small subcentimeter bilateral cortical based acute ischemic infarcts involving the parasagittal posterior frontal lobes and parietal lobes in the anterior cerebral artery territories. These are likely all related to downstream embolic strokes from the patient's prior occlusive left internal carotid artery thrombus on CT angiography one day ago. 2. The left internal carotid artery vascular flow void is intact and could indicate some reconstituted blood flow since thrombolytic therapy since prior angiographic imaging one day ago. This could be further assessed with dedicated CT or MR angiography. 3. Numerous chronic infarcts Still dysphagia, HUGE hiatal hernia, failed attempted dobhoff and PEG (Peg attempted 11.8) SO no w PICC inserted 08/05 and TPN ID involved, staph is likely contaminant 1/4 bottles, E coli treated - so ff abx now Some confusion. She continues to undress. D/w sons her overall poor prognosis and need to consider palliative/hospice Minimal response to verbal stimuli G-tube would require surgical placement. Hospice/comfort care discussed as option. Palliative care has gotten permission from Ronald to look at options for [facility] placement and also spoke with Jean-Pierre son. He has discussed care with his brother Ronald. Understand risk of surgical placement of J tube would be high--bleeding, infections, further complications. They would like to focus on her comfort. Lilibeth Morejon and Ronald would like chcf with hospice. Jean-Pierre will not be available until 1529 today. I have d/w Dioni and Freddy, friends of patient with permission from sons that g- tube placement is dangerous in her state and ethically likely inappropriate given her mental state with prior CVAs Problem list - Acute CVA - s/p tPA, was admitted to ICU, Acute metabolic and toxic encephalopathy CVA syndrome + UTI. 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 Gen weakness - [facility] on the works Dysphagia persistent HUge hiatal hernia, precluded so and PEG DNR ACUTE DIFFUSE MACULOPAPULAR RASH , PRURITIC - HYPERSENSITIVITY REACTION? - 08/05/19 PLAN: DNR Comfort measures Spoke with Deanne CASAS. Patient has been accepted at [facility] with Hospice today after 1530 Discharge Information Condition at Discharge: Stable Follow Up: Weeks (1) Disposition/Orders: D/C to Another Facility ([facility] with hospice) Scheduled Carvedilol (Carvedilol ) 6.25 Mg Tablet, 6.25 MG PO BIDWMEALS for CARDIAC, (Reported) Entered as Reported by: MARIO REY on 08/27/18 1742 Last Action: Continued on 07/29/19 0842 by JAYDEN ESCOBAR MD Meloxicam (Meloxicam) 7.5 Mg Tablet, 1 TAB PO DAILY for back pain, #30 Ref 2 (Reported) Entered as Reported by: MARIO REY on 08/27/18 1755 Scheduled PRN Atropine Sulfate (Atropine Sulfate) 2 Ml Drops, 2 DROP SL PRN Q4HRS PRN for SECRETIONS for 30 Days, #120 Prescribed by: JAYDEN ESCOBAR MD on 08/09/19 1304 Lorazepam (Lorazepam Intensol) 2 Mg/1 Ml Oral.conc, 2 MG SL PRN Q6HRS PRN for ANXIETY / AGITATION for 30 Days, #30 Ref 2 Prescribed by: JAYDEN ESCOBAR MD on 08/09/19 1304 Morphine Sulfate (Morphine Sulfate) 100 Mg/5 Ml Solution, 5 MG PO/SL PRN Q2HRS PRN for MODERATE PAIN OR DYSPNEA for 30 Days, #30 Prescribed by: JAYDEN ESCOBAR MD on 08/09/19 1304 Discontinued Medications Lactobacillus Rhamnosus Gg (Culturelle) 1 Each Cap.sprink, 1 CAP PO BID for supplement gi for 14 Days, #28 Prescribed by: ANDREW FLORES MD on 09/01/18 1153 Omeprazole Magnesium (Prilosec Otc) 20 Mg Tablet.dr, 2 TAB PO DAILY for heartburn, #30 Ref 3 (Reported) Entered as Reported by: MARIO REY on 08/27/181754 Last Action: Converted on 07/29/19841 by JAYDEN ESCOBAR MD Oxybutynin Chloride (Oxybutynin Chloride Er) 5 Mg Tab.er.24, 1 TAB PO DAILY for overactive bladder, #30 Ref 5 (Reported) Entered as Reported by: MARIO REY on 08/27/181754 Last Action: Converted on 07/29/19841 by JAYDEN ESCOBAR MD Paroxetine Hcl (Paroxetine Hcl) 10 Mg Tablet, 10 MG PO DAILY for depression, (Reported) Entered as Reported by: MARIO REY on 08/27/181754 Last Action: Continued on 07/29/19841 by JAYDEN ESCOBAR MD Ranitidine Hcl (Ranitidine Hcl) 150 Mg Capsule, 150 MG PO BID for heartburn, (Reported) Entered as Reported by: MARIO REY on 08/27/181754 Tramadol Hcl (Tramadol Hcl) 50 Mg Tablet, 50 MG PO Q6HRS PRN for PAIN, (Reported) Entered as Reported by: MARIO REY on 08/27/181754 JAYDEN ESCOBAR MD Aug 09, 2019 13:33
--- NOTE | 2019-08-09 14:30 | PDOC ---
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 Acute several small subcentimeter bilateral cortical based acute ischemic infarcts involving the parasagittal posterior frontal lobes and parietal lobes in the anterior cerebral artery territories. Aphasia on 07/28/19 s/p TPA. Dysphagia. Right side weakness. Metabolic encephalopathy. Confusion. HTN. DM. 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 RECOMMENDATIONS/PLAN: TPA administrated on 07/28/19. ASA 300 mg rectal due to not able to swallow. Statin HS. Palliative care per family and palliative care team consulted. PEG issues, not a candidate due to hiatal hernia. Goal of care per her family. History of Present Illness This is an 88-year-old female patient with above medical diseases has not been feeling well in [facility] past 3 days described as tiredness and weakness in one side sometime and other side other times then the entire body. She had a fall at home. EMS was called for altered mental status associated with the fall. However upon further discussion patient has had fall a few days ago with bruising to left side of her head. Patient was initially alert and oriented 3. She follows commands appropriately. NIH of 3 however non-unilateral deficit. While in [facility] ER, she was noted to have new symptoms of aphasia and her NIH score became 6. She was thought to have acute CVA and TPA was offered to her after all criteria were met. Her CTA showed high grade stenosis and occlusion of left ICA. 08/09/19: Still encephalopathic. Past Medical History Cardiovascular: HTN Pulmonary: No pertinent hx CENTRAL NERVOUS SYSTEM: CVA GI: GERD Heme/Onc: No pertinent hx Hepatobiliary: No pertinent hx Musculoskeletal: Osteoarthritis Rheumatologic: No pertinent hx Infectious disease: No pertinent hx ENT: No pertinent hx Renal/: No pertinent hx, UTI Endocrine: No pertinent hx Dermatology: No pertinent hx Past Surgical History No major surgery recently. Family History Heart Disease ALLERGY: NKDA MEDICATIONS: Refer to [facility] SOCIAL HISTORY: Denies current smoking, drinking, and illicit drug use. REVIEW OF SYSTEMS: Constitutional: No malnutrition, weight loss, cachexia. Head: No traumatic brain or head injury. Skin: No edema, or rash. Ear: No infection, tinnitus. Eyes: No vision loss or color blindness. Nose: No bleeding or purulent discharges. Hearing: Hearing decrease. Neck: No injury. Breast: No history of cancer, masses,or discharges. Cardiac: HTN. Pulmonary: No COPD. GI: GERD. Urinary/genital: UTI. Endocrinologic: Diabetes Mellitus. Skeletomuscular: Generalized weakness. Neurological: see HP. Psychiatric: Denies drug use/abuse. Otherwise, not [id number] review of systems. PHYSICAL EXAMINATION: General appearance is in subacute distress. HEENT: Normocephalic and nontraumatic. Eyes, nose, ears, and throat are unre markable. Neck is supple. No lymphadenopathy. No crepitus. Cardiovascular: S1, S2, regular rate and rhythm. Pulmonary: mildly decreased to auscultation bilaterally. Abdomen: Bowel sounds are positive. Extremities: No rash, lesions, or edema. Restriction of range of motion in right UE. NEUROLOGICAL EXAMINATION: Awake form time to time. Not able to follow commands. Not oriented to time, place and person. PERRL. EOMI. CN: Right side VII palsy. Muscle tone: Increased in right side. Muscle strength: 1-2 right UE and 3 LE. 5- left side. DTR: 2-3 right UE, 1-2 the rest. Plantar reflex: weak extensor response in right side. Gait: not able to walk. Sensory exam: Decreased in right UE. No other acute cerebellar signs. Objective Objective Vital Signs Date Time Temp Pulse Resp B/P (MAP) Pulse Ox O2 Delivery O2 Flow Rate FiO2 08/09/19 10:59 98.0 96 18 159/57 (91) 93 Room Air 98.0 Intake and Output 08/09/19 07:00 Output Total 1000 ml Balance -1000 ml Output Urine Total 1000 ml # Voids 1 Vitals Signs Vitals VS - Last 72 Hours, by Label Date Time Temp Pulse Resp B/P (MAP) Pulse Ox O2 Delivery O2 Flow Rate FiO2 08/09/19 10:59 98.0 96 18 159/57 (91) 93 Room Air 98.0 08/09/19 08:00 Room Air 08/09/19 07:00 98.4 81 18 145/63 (90) 93 Room Air 98.4 08/09/19 04:49 16 Room Air 08/09/19 03:55 16 96 Room Air 08/08/19 23:00 16 96 Room Air 08/08/19 22:24 16 96 Room Air 08/08/19 20:00 Room Air 08/08/19 19:00 98.1 87 13 123/48 (73) 96 Room Air 98.1 08/08/19 11:00 98.4 89 16 139/63 (88) 94 Room Air 98.4 08/08/19 10:50 18 95 Room Air 08/08/19 10:19 16 95 Room Air 08/08/19 08:00 Room Air 08/08/19 07:00 97.8 84 16 147/64 (91) 95 Room Air 97.8 Laboratory Laboratory Laboratory Tests Test 08/08/19 16:30 08/08/19 20:25 08/09/19 04:30 08/09/19 07:03 Glucose (Fingerstick) 237 mg/dL (70-99) 228 mg/dL (70-99) 236 mg/dL (70-99) Sodium Level 139 mmol/L (136-145) Potassium Level 4.6 mmol/L (3.5-5.1) Chloride Level 106 mmol/L (98-107) Carbon Dioxide Level 21 mmol/L (21-32) Anion Gap 12 (6-14) Blood Urea Nitrogen 45 mg/dL (7-20) Creatinine 0.9 mg/dL (0.6-1.0) Estimated GFR (Cockcroft-Gault) 59.4 Glucose Level 256 mg/dL (70-99) Calcium Level 8.8 mg/dL (8.5-10.1) Phosphorus Level 4.2 mg/dL (2.6-4.7) Magnesium Level 1.9 mg/dL (1.8-2.4) Test 08/09/19 11:21 Glucose (Fingerstick) 219 mg/dL (70-99) Microbiology 07/29/19 Blood Culture - Final, Complete NO GROWTH AFTER 5 DAYS 07/28/19 Urine Culture - Final, Complete 07/28/19 Urine Culture Result 1 (ANTONIETA) - Final, Complete 07/28/19 Antimicrobic Susceptibility - Final, Complete Medication Medications Current Medications Sodium Chloride 90 meq/Potassium Chloride 50 meq/ Potassium Phosphate 18 mmol/ Magnesium Sulfate 10 meq/Calcium Gluconate 10 meq/ Multivitamins 10 ml/Chromium/ Copper/Manganese/ Seleni/Zn 1 ml/ Total Parenteral Nutrition/Amino Acids/Dextrose/ Fat Emulsion Intravenous 1,512 ml @ 63 mls/hr TPN CONT IV Last administered on 08/08/19at 20:16; Start 08/08/19 at 22:00; Stop 08/09/19 at 21:59 Comment Review of Relevant I have reviewed the following items shannan (where applicable) has been applied. JACQUE WINKLER MD Aug 09, 2019 14:30
== END 2019-08-09 16:01 | disposition hospice, inpatient (51) | DRG 61 ==
LOC: ER 22:16 → 6 SOUTH 23:43 → UNDOADMIN 23:43 → 1 WEST ICU 07-29 03:49 → 6 SOUTH 07-30 17:15 → 5 SOUTH 08-03 16:52
PROVIDERS: ADMIT Internal Medicine; ATTEND Internal Medicine
PROC: 3E03317 Introduction of Other Thrombolytic into Peripheral Vein, Percutaneous Approach (ICD-10-PCS; principal; 2019-07-29)
PROC: 0DJ08ZZ Inspection of Upper Intestinal Tract, Via Natural or Artificial Opening Endoscopic (ICD-10-PCS; 2019-08-04)
DX: I63.9 Cerebral infarction, unspecified (principal); N17.0 Acute kidney failure with tubular necrosis; G92 Toxic encephalopathy; N39.0 Urinary tract infection, site not specified; G81.91 Hemiplegia, unspecified affecting right dominant side; R41.4 Neurologic neglect syndrome; R47.01 Aphasia; B95.8 Unspecified staphylococcus as the cause of diseases classified elsewhere; B96.20 Unspecified Escherichia coli [E. coli] as the cause of diseases classified elsewhere; E11.9 Type 2 diabetes mellitus without complications; F03.90 Unspecified dementia, unspecified severity, without behavioral disturbance, psychotic disturbance, mood disturbance, and anxiety; I07.1 Rheumatic tricuspid insufficiency; I10 Essential (primary) hypertension; I63.512 Cerebral infarction due to unspecified occlusion or stenosis of left middle cerebral artery; I65.23 Occlusion and stenosis of bilateral carotid arteries; K21.9 Gastro-esophageal reflux disease without esophagitis; K29.70 Gastritis, unspecified, without bleeding; K44.9 Diaphragmatic hernia without obstruction or gangrene; L29.9 Pruritus, unspecified; S00.83XA Contusion of other part of head, initial encounter; Z66 Do not resuscitate; W18.39XA Other fall on same level, initial encounter; R13.12 Dysphagia, oropharyngeal phase; Z79.82 Long term (current) use of aspirin; Z82.49 Family history of ischemic heart disease and other diseases of the circulatory system; Z86.73 Personal history of transient ischemic attack (TIA), and cerebral infarction without residual deficits; F41.9 Anxiety disorder, unspecified; M19.90 Unspecified osteoarthritis, unspecified site; Z88.8 Allergy status to other drugs, medicaments and biological substances; Y93.89 Activity, other specified; Y92.89 Other specified places as the place of occurrence of the external cause; Y99.8 Other external cause status; R29.710 NIHSS score 10
CPT/HCPCS: 36415; 36569; 37195; 70450; 70496; 70498; 70551; 71045; 71260; 74018; 74160; 74230; 80048; 80053; 80061; 81001; 82465; 82962; 83036; 83735; 84100; 84443; 85025; 85610; 87040; 87077; 87086; 87186; 87205; 93005; 93306; 96374; J0610; J0690; J0696; J1200; J1885; J2001; J2060; J2270; J2704; J2920; J2930; J2997; J3475; J3480; J3490; J7120; Q9967; 92526; 92610; 92611; 97110; 97116; 97530; 97535; 99285-25; G0378